=== PATIENT | female | born 1945 | race Caucasian/White ===

== ENCOUNTER → 2017-12-07 09:30 | Outpatient (CLI) | payer MEDICARE, BC, SELFPAY | PROVIDERS: Family Provider Family Medicine; PCP Family Medicine; Visit Provider Internal Medicine Medical Oncology | DX: Z12.31 Encounter for screening mammogram for malignant neoplasm of breast (principal); Z85.3 Personal history of malignant neoplasm of breast | CPT/HCPCS: 77063; 77067 ==

== ENCOUNTER → 2018-07-10 13:37 | Outpatient (CLI) | payer MEDICARE, BC, SELFPAY ==
[2018-07-02 10:46] VITALS: BMI 35.1
--- NOTE | 2018-07-10 13:40 | US_ITS ---
STUDY: ULTRASOUND BREAST - RIGHT REASON FOR EXAM: Female, 72 years old. Palpable lump in the right breast. The patient is status post right lumpectomy. TECHNIQUE: Axial and longitudinal images of the RIGHT breast were performed with a high resolution ultrasound transducer. COMPARISON: Comparison is made with prior mammogram done earlier in the day. FINDINGS: RIGHT Breast: No sonographic solid or cystic mass lesion is seen. At the lumpectomy site, there is a 4 mm x 4 mm x 2 mm focal fluid collection. US/Breast Limited Unilateral IMPRESSION: 4 mm x 4 mm x 2 mm fluid collection at the 2:00 position of the breast at 2 cm from the nipple. No solid or cystic mass lesion is seen. ASSESSMENT CATEGORY: BIRADS Category 2: Benign. A letter regarding these results will be sent to the patient by the facility within 30 days. Electronically Signed: Robbin Rushing, at 8:55 EDT , Service support ,
--- NOTE | 2018-07-10 13:43 | BI_ITS ---
MAMMOGRAPHY - UNILATERAL DIAGNOSTIC: RIGHT BREAST REASON FOR EXAM: Female, 72 years old. Prior right lumpectomy and radiation treatment. Patient presents with a palpable lump in the right breast just above the lumpectomy scar. PERTINENT HISTORY: Personal history of breast cancer. TECHNIQUE: Digital unilateral breast tete (3D mammographic acquisition) in the CC and MLO projections. 2-D mediolateral oblique (MLO) and craniocaudad (CC) views of both breasts were obtained. CAD: Full Field Digital Mammography with Computer Added Detection was performed. COMPARISON: Comparison is made with prior study dated December 07, 2017. FINDINGS: Breast Composition: There are scattered areas of fibroglandular density. There are no dominant masses or suspicious calcifications. A tissue clip marker is seen in the mid anterior medial aspect of the breast. There is evidence of a postoperative changes in keeping with prior lumpectomy. No other significant abnormalities are identified. There has been no significant change since the prior study. BI/DIAG MAMM W/CAD, UNILAT IMPRESSION: Stable unilateral diagnostic mammogram. With the patient's history of a palpable abnormality in the right breast, correlation with ultrasound is recommended. ASSESSMENT CATEGORY: BIRADS Category 0: Incomplete. Need additional imaging evaluation. A letter regarding these results will be sent to the patient by the facility within 30 days. Approximately 10% of breast cancers are not detected by mammography. A normal mammogram should not delay biopsy of a clinically suspicious abnormality. Electronically Signed: Robbin Rushing, at 15:02 EDT , Service support ,
== END ==
PROVIDERS: Family Provider Family Medicine; PCP Family Medicine; Referring Provider Internal Medicine Medical Oncology; Visit Provider Internal Medicine Medical Oncology
DX: N63.10 Unspecified lump in the right breast, unspecified quadrant (principal); Z85.3 Personal history of malignant neoplasm of breast
CPT/HCPCS: 76642; 77061; 77065; G0279

== ENCOUNTER → 2018-12-10 | Outpatient (CLI) | payer MEDICARE, BC, SELFPAY ==
[2018-07-20 08:41] VITALS: BMI 35.6
--- NOTE | 2018-12-10 07:36 | BI_ITS ---
MAMMOGRAPHY - BILATERAL SCREENING REASON FOR EXAM: Female, 73 years old. Routine annual screening examination. PERTINENT HISTORY: Personal history of breast cancer. Prior right lumpectomy with radiation therapy. TECHNIQUE: Digital bilateral breast hung (3D mammographic acquisition) in the CC and MLO projections. 2-D mediolateral oblique (MLO) and craniocaudad (CC) views of both breasts were obtained. CAD: Full Field Digital Mammography with Computer Added Detection was performed. COMPARISON: Comparison is made with prior study dated July 10, 2018 and December 07, 2017. FINDINGS: Breast Composition: The breasts are heterogeneously dense, which may obscure small masses. There are no dominant masses or suspicious calcifications. A surgical clip is seen in the deep mid medial aspect of the right breast. Stable architectural distortion in keeping with her prior lumpectomy. No other significant abnormalities are identified. There has been no significant change since the prior study. BI/SCREEN MAMM (CAD) W/HUNG BILAT IMPRESSION: Stable bilateral screening mammogram. Yearly follow-up mammogram recommended. (A) ASSESSMENT CATEGORY: BIRADS Category 2: Benign. A letter regarding these results will be sent to the patient by the facility within 30 days. Approximately 10% of breast cancers are not detected by mammography. A normal mammogram should not delay biopsy of a clinically suspicious abnormality. [id number] Electronically Signed: Robbin Rushing, at 9:26 EDT , Service support ,
== END | disposition home or self-care (01) ==
LOC: OPBI 07:34
PROVIDERS: Family Provider Family Medicine; PCP Family Medicine; Referring Provider Internal Medicine Medical Oncology; Visit Provider Internal Medicine Medical Oncology
DX: Z12.31 Encounter for screening mammogram for malignant neoplasm of breast (principal); Z85.3 Personal history of malignant neoplasm of breast
CPT/HCPCS: 77063; 77067

== ENCOUNTER → 2019-12-12 10:31 | Outpatient (CLI) | payer MEDICARE, BC, SELFPAY ==
[2019-03-15 07:50] VITALS: BMI 36.1
--- NOTE | 2019-12-12 10:32 | BI_ITS ---
MAMMOGRAPHY - BILATERAL SCREENING REASON FOR EXAM: Female, 74 years old. Routine annual screening examination. PERTINENT HISTORY: Personal history of breast cancer. Prior right lumpectomy with radiation treatment.. TECHNIQUE: Digital bilateral breast hung (3D mammographic acquisition) in the CC and MLO projections. 2-D mediolateral oblique (MLO) and craniocaudad (CC) views of both breasts were obtained. CAD: Full Field Digital Mammography with Computer Added Detection was performed. COMPARISON: Comparison is made with prior study dated 12/10/2018 and 12/07/2017. FINDINGS: Breast Composition: The breasts are heterogeneously dense, which may obscure small masses. There are no dominant masses or suspicious calcifications. Stable postoperative deformity of the right breast. A tissue clip marker is once again seen in the central medial portion of the right breast. No other significant abnormalities are identified. There has been no significant change since the prior study. BI/SCREEN MAMM (CAD) W/HUNG BILAT IMPRESSION: Stable bilateral screening mammogram. Yearly follow-up mammogram recommended. (A) ASSESSMENT CATEGORY: BIRADS Category 2: Benign. A letter regarding these results will be sent to the patient by the facility within 30 days. Approximately 10% of breast cancers are not detected by mammography. A normal mammogram should not delay biopsy of a clinically suspicious abnormality. [id number] Electronically Signed: Robbin Rushing, at 12:23 EDT , Service support ,
== END ==
PROVIDERS: PCP Family Medicine; Referring Provider Internal Medicine Medical Oncology; Visit Provider Internal Medicine Medical Oncology
DX: Z12.31 Encounter for screening mammogram for malignant neoplasm of breast (principal); Z85.3 Personal history of malignant neoplasm of breast
CPT/HCPCS: 77063; 77067

== ENCOUNTER → 2020-02-05 09:02 | Outpatient (CLI) | payer MEDICARE, BC, SELFPAY ==
[2020-02-03 13:50] VITALS: BMI 35.1
--- NOTE | 2020-02-05 09:03 | US_ITS ---
STUDY: ULTRASOUND BREAST - LEFT REASON FOR EXAM: Female, 74 years old. Palpable retroareolar lump TECHNIQUE: Axial and longitudinal images of the LEFT breast were performed with a high resolution ultrasound transducer. # OF IMAGES: 24 COMPARISON: 12/12/2019 FINDINGS: LEFT Breast: There is a cystic lesion #1 in the retroareolar region. The lesion measures 6 x 5 x 2 mm in size. Clock notation: 6 o''clock position. Distance from nipple: 1 cm. Posterior Enhancement: Yes. Posterior Shadowing: None. Margins: Indistinct but smooth. Echogenicity: Anechoic. Compression effect on Shape: No change. There is a cystic lesion # 2 in the retroareolar region. The lesion measures 3 x 3 x 2 mm in size. Clock notation: 6 o''clock position. Distance from nipple: 1 cm. Posterior Enhancement: Yes. Posterior Shadowing: None. Margins: Sharp and smooth. Echogenicity: Anechoic. Compression effect on Shape: No change. There is a cystic lesion # 2 in the retroareolar region. The lesion measures 5 x 5 x 3 mm in size. Clock notation: 9 o''clock position. Distance from nipple: 1 cm. Posterior Enhancement: Yes. Posterior Shadowing: None. Margins: Sharp and smooth. Echogenicity: Anechoic. Compression effect on Shape: No change. US/Breast Limited Unilateral IMPRESSION: 3 probably benign retroareolar cystic lesions in the area of palpable abnormality in the left breast. A follow-up in 6 months would be recommended to ensure stability. ASSESSMENT CATEGORY: BIRADS Category 3: Probably Benign - Short-Interval Follow-up Suggested. A letter regarding these results will be sent to the patient by the facility within 30 days. Electronically Signed: Mayra Casas, at 15:41 EDT Tel , Service support ,
== END ==
PROVIDERS: PCP Family Medicine; Referring Provider Internal Medicine Medical Oncology; Visit Provider Internal Medicine Medical Oncology
DX: Z12.31 Encounter for screening mammogram for malignant neoplasm of breast (principal); N63.42 Unspecified lump in left breast, subareolar
CPT/HCPCS: 76642

== ENCOUNTER → 2020-07-30 10:32 | Outpatient (CLI) | payer MEDICARE, BC, SELFPAY ==
[2020-04-02 09:26] VITALS: BMI 34.9
--- NOTE | 2020-07-30 10:35 | US_ITS ---
STUDY: ULTRASOUND BREAST - LEFT REASON FOR EXAM: Female, 74 years old. Six-month follow-up of left breast cyst. TECHNIQUE: Axial and longitudinal images of the LEFT breast were performed with a high resolution ultrasound transducer. # OF IMAGES: 21 COMPARISON: Comparison is made with a prior examination dated 02/05/2020. FINDINGS: LEFT Breast: Stable 6 mm x 4 mm x 3 mm cyst at the 6 o''clock retroareolar region of the breast. Adjacent to this, there is a 3 mm x 4 mm x 3 mm cyst. There is a 5 mm x 4 mm x 3 mm cyst at the 9 o''clock retroareolar position of the breast. US/Breast Limited Unilateral IMPRESSION: Stable examination. Routine annual mammographic follow-up is recommended. ASSESSMENT CATEGORY: BIRADS Category 2: Benign. A letter regarding these results will be sent to the patient by the facility within 30 days. Electronically Signed: Robbin Rushing MD at 14:06 EDT , Service support ,
== END ==
PROVIDERS: PCP Family Medicine; Referring Provider Internal Medicine Medical Oncology; Visit Provider Internal Medicine Medical Oncology
DX: N60.02 Solitary cyst of left breast (principal); Z85.3 Personal history of malignant neoplasm of breast
CPT/HCPCS: 76642

== ENCOUNTER → 2020-12-14 08:19 | Outpatient (CLI) | payer MEDICARE, BC, SELFPAY ==
[2020-08-06 10:42] VITALS: BMI 35.3
--- NOTE | 2020-12-14 08:22 | BI_ITS ---
MAMMOGRAPHY - BILATERAL SCREENING REASON FOR EXAM: Female, 75 years old. Routine annual screening examination. PERTINENT HISTORY: Personal history of breast cancer. Prior right lumpectomy with radiation treatment. TECHNIQUE: Digital bilateral breast hung (3D mammographic acquisition) in the CC and MLO projections. 2-D mediolateral oblique (MLO) and craniocaudad (CC) views of both breasts were obtained. CAD: Full Field Digital Mammography with Computer Added Detection was performed. COMPARISON: Comparison is made with prior study 12/12/2019 and 12/10/2018. FINDINGS: Breast Composition: The breasts are heterogeneously dense, which may obscure small masses. There are no dominant masses or suspicious calcifications. Once again, the patient is status post right lumpectomy with resultant breast deformity and postoperative changes. A tissue clip marker is seen in the deep central anterior medial aspect of the right breast. No other significant abnormalities are identified. There has been no significant change since the prior study. BI/SCRN MAMM (CAD)W/HUNG BILAT IMPRESSION: Stable bilateral screening mammogram. Yearly follow-up mammogram recommended. (A) ASSESSMENT CATEGORY: BIRADS Category 2: Benign. A letter regarding these results will be sent to the patient by the facility within 30 days. Approximately 10% of breast cancers are not detected by mammography. A normal mammogram should not delay biopsy of a clinically suspicious abnormality. [id number] Electronically Signed: Robbin Rushing MD at 10:23 EDT , Service support ,
== END ==
PROVIDERS: PCP Family Medicine; Referring Provider Internal Medicine Medical Oncology; Visit Provider Internal Medicine Medical Oncology
DX: Z12.31 Encounter for screening mammogram for malignant neoplasm of breast (principal); Z85.3 Personal history of malignant neoplasm of breast
CPT/HCPCS: 77063; 77067

== ENCOUNTER 2021-07-15 08:53 | Outpatient (CLI) | payer MEDICARE, BC, SELFPAY ==
--- NOTE | 2021-07-15 08:56 | US_ITS ---
STUDY: ULTRASOUND BREAST - LEFT REASON FOR EXAM: Female, 75 years old. Palpable mass TECHNIQUE: Axial and longitudinal images of the LEFT breast were performed with a high resolution ultrasound transducer. # OF IMAGES: 14 COMPARISON: Diagnostic mammogram earlier today FINDINGS: LEFT Breast: Heterogeneous background echotexture. At 1 o''clock, 4 cm from the nipple, within some dense breast parenchyma, ultrasound confirms a 3 mm round circumscribed anechoic mass with posterior enhancement consistent with a cyst consistent with fibrocystic change.: US/Breast Limited Unilateral IMPRESSION: Fibrocystic change with a 3 mm cyst corresponding to the patient''s palpable abnormality. ASSESSMENT CATEGORY: BIRADS Category 2: Benign. A letter regarding these results will be sent to the patient by the facility within 30 days. Electronically Signed: Rahul Cordero MD at 10:49 EDT ,
--- NOTE | 2021-07-15 08:56 | BI_ITS ---
MAMMOGRAPHY - UNILATERAL DIAGNOSTIC: LEFT BREAST REASON FOR EXAM: Female, 75 years old. PALPABLE LUMP LEFT BREAST PERTINENT HISTORY: Non-contributory. TECHNIQUE: Digital examination. Mediolateral oblique (MLO) and craniocaudad (CC) views of the breast were obtained. CAD: CAD was performed on this study. COMPARISON: 12/14/2020 FINDINGS: Breast Composition: The breasts are heterogeneously dense, which may obscure small masses. There are no dominant masses or suspicious calcifications. No other significant abnormalities are identified. BI/DIAG MAMM W/CAD, UNILAT IMPRESSION: Stable unilateral diagnostic mammogram. Ultrasound of the palpable abnormality in the upper outer quadrant of the left breast will be obtained. ASSESSMENT CATEGORY: BIRADS Category 0: Incomplete. Need additional imaging evaluation. A letter regarding these results will be sent to the patient by the facility within 30 days. FOLLOW-UP RECOMMENDATION: Ultrasound recommended. (I) Approximately 10% of breast cancers are not detected by mammography. A normal mammogram should not delay biopsy of a clinically suspicious abnormality. Electronically Signed: Rahul Cordero MD at 10:01 EDT ,
== END 2021-07-15 23:59 | disposition home or self-care (01) ==
PROVIDERS: PCP Family Medicine; Visit Provider Internal Medicine Medical Oncology
DX: N63.21 Unspecified lump in the left breast, upper outer quadrant (principal)
CPT/HCPCS: 76642; 77061; 77065; G0279

== ENCOUNTER → 2022-01-27 | Outpatient (CLI) | payer MEDICARE, BC, SELFPAY ==
--- NOTE | 2022-01-27 07:41 | ECHODONC_ITS ---
Version 2 Reason For Study: DYSPNEA/SOB Procedure This was a 2D Doppler, Color Flow transthoracic echocardiogram. Myocardial strain analysis was performed in this exam to aid in the assessment of cardiac function. Exam performed in department. Left Ventricle Normal LV size. Left ventricular systolic function is normal. The estimated ejection fraction is 55 %. Stage 1 diastolic dysfunction. No regional wall motion abnormalities noted. Right Ventricle Normal RV size. Normal systolic function. Atria Normal left atrium. Normal right atrium. Mitral Valve Normal mitral valve. Tricuspid Valve Normal tricuspid valve. Mild tricuspid valve insufficiency. Pulmonary artery systolic pressure is 24 mmHg. Aortic Valve Trisinus/trileaflet aortic valve. Mild focal aortic valve calcification. Pulmonic Valve Normal pulmonic valve. Great Vessels Normal aortic root. The pulmonary artery is normal size. Normal inferior vena cava. Pericardium/Pleural No pericardial effusion. MMode/2D Measurements & Calculations LVIDd: 4.8 cm IVSd: 0.93 cm Ao root diam: 3.3 cm LVIDs: 3.3 cm LVPWd: 0.98 cm RVDd: 2.9 cm FS: 32.3 % LAV(MOD-bp): 43.9 ml LA A4 area: 15.0 cm2 LA dimension(2D): 3.7 cm LAV(MOD-bp) Indexed: 20.1 ml/m2 LAV(MOD-sp2): 47.2 ml LAV(MOD-sp4): 39.1 ml RA A4 area: 13.1 cm2 Doppler Measurements & Calculations MV E max ivan: 65.3 cm/sec Lat Peak E' Ivan: 6.0 cm/sec Med Peak E' Ivan: 6.7 cm/sec MV A max ivan: 76.1 cm/sec E/E' lat: 11.0 E/E' med: 9.7 MV E/A: 0.86 Ao V2 max: 111.1 cm/sec LV V1 max: 105.0 cm/sec PA V2 max: 90.7 cm/sec Ao max P.9 mmHg LV V1 max P.4 mmHg TR max ivan: 225.7 cm/sec TR max P.4 mmHg ECHO/ONC Echo Complete Interpretation Summary Normal LV size. Left ventricular systolic function is normal. The estimated ejection fraction is 55 %. Stage 1 diastolic dysfunction. Mild focal aortic valve calcification. The global longitudinal strain is normal. The global longitudinal strain = -16. 8 % (normal). Ordering Physician: Suki Flores Referring Physician: Sisi York Performed By: Susie Deleon, HUEY, RVT
== END | disposition home or self-care (01) ==
PROVIDERS: PCP Family Medicine; Referring Provider Physician Assistant Medical; Visit Provider Physician Assistant Medical
DX: I47.1 Supraventricular tachycardia (principal)
CPT/HCPCS: 93306; 93356

== ENCOUNTER → 2022-07-14 | Outpatient (CLI) | payer MEDICARE, BC, SELFPAY ==
--- NOTE | 2022-07-14 15:26 | PFTCOMP ---
COMPLETE PULMONARY FUNCTION TEST INTERPRETATION Brief HPI: Patient is a 76-year-old female, currently under the care of myself, who presents to [facility] for complete pulmonary function tests secondary to diagnosis of dyspnea. Respiratory therapist reports good effort and reproducible results. Interpretation: Forced expiration spirometry shows a moderate large airways obstructive ventilatory defect with an FEV1 of 68% predicted. There is no significant bronchodilator response by strict ATS criteria. Spirograms are of good quality and plateau slowly, indicating slowly emptying areas of the lungs. The respiratory flow volume loop shows decreased expiratory flow rates at all lung volumes consistent with airway obstruction. Lung volumes by body plethysmography show a decreased total lung capacity at 3.4 L, 63% predicted. All other lung volumes are reduced symmetrically. Diffusion capacity by carbon monoxide is decreased at 60% predicted. The airway resistance is elevated. No previous pulmonary function tests were available for review. Impression: Irreversible moderate mixed ventilatory defect with a symmetric duction and diffusing capacity
== END | disposition home or self-care (01) ==
LOC: PSN 09:30
PROVIDERS: PCP Family Medicine; Referring Provider Internal Medicine Critical Care Medicine; Visit Provider Internal Medicine Critical Care Medicine
DX: R06.09 Other forms of dyspnea (principal)
CPT/HCPCS: 94060; 94726; 94729

== ENCOUNTER → 2022-07-21 | Outpatient (CLI) | payer MEDICARE, BC, SELFPAY ==
[2022-07-21 11:15] VITALS: PULSE 101; PULSE 103; PULSE 105; PULSE 112; PULSE 127; PULSE 79; PULSE 94; O2SAT 92; O2SAT 93; O2SAT 94; O2SAT 95; O2SAT 98
--- NOTE | 2022-07-22 09:30 | WT_ITS ---
PSN 6 Minute Walk Test 6 Minute Walk Test 6 Minute Walk Test: 6 Minute Walk Test PSN:6-Minute Walk Test Start: 07/21/22 11:14 Freq: Status: Active Protocol: [id number].6MINW Document 07/21/22 11:15 [facility] (Rec: 07/21/22 11:18 [facility] [id number]) 6 Minute Walk Test Date Performed 07/21/22 Time Performed 11:15 Height 5 ft 7 in Weight: 229 lb Weight in Pounds 229.[address]: George Fraga Assistive device used: None Pre-test Oxygen Delivery Method Room Air Pulse Ox (%) 98 Pulse Rate (60-100 beats/min) 79 Dyspnea Liam Scale (0-10) 0 Exertion Liam Scale (6-20) 6 1st minute Oxygen Delivery Method Room Air Pulse Ox (%) 94 Pulse Rate (60-100 beats/min) 101 H 2nd minute Oxygen Delivery Method Room Air Pulse Ox (%) 93 Pulse Rate (60-100 beats/min) 103 H 3rd minute Oxygen Delivery Method Room Air Pulse Ox (%) 94 Pulse Rate (60-100 beats/min) 105 H 4th minute Oxygen Delivery Method Room Air Pulse Ox (%) 93 Pulse Rate (60-100 beats/min) 112 H 5th minute Oxygen Delivery Method Room Air Pulse Ox (%) 94 Pulse Rate (60-100 beats/min) 112 H 6th minute Oxygen Delivery Method Room Air Pulse Ox (%) 92 Pulse Rate (60-100 beats/min) 127 H Dyspnea Liam Scale (0-10) 3 Exertion Liam Scale (6-20) 11 Post-test Oxygen Delivery Method Room Air Pulse Ox (%) 95 Pulse Rate (60-100 beats/min) 94 Full Laps Walked 18 Partial Lap, Number of Tiles Walked 27 Total Distance Walked (ft) 1089 Interpretation Interpretation: The patient ambulated 1089 feet over the course of 6 minutes beginning on room air without assistive devices. Pretesting oxygen saturation was noted to be 98% on room air. With ambulation, the faith oxygen saturation was 92%. This represents a significant exertional oxygen desaturation, consistent with a pulmonary limitation to exercise tolerance. Recommendations Recommendations: There is no indication for the use of supplemental oxygen at this time. However, close interval follow-up is recommended, given the degree of oxygen desaturation noted during this study.
== END | disposition home or self-care (01) ==
LOC: PSN 10:49
PROVIDERS: PCP Family Medicine; Referring Provider Internal Medicine Critical Care Medicine; Visit Provider Internal Medicine Critical Care Medicine
DX: R06.09 Other forms of dyspnea (principal)
CPT/HCPCS: 94618

== ENCOUNTER → 2024-07-24 | Outpatient (CLI) | payer MEDICARE, BC, SELFPAY | END | disposition home or self-care (01) | LOC: PSN 09:03 | PROVIDERS: PCP Family Medicine; Referring Provider Nurse Practitioner Family; Visit Provider Nurse Practitioner Family | DX: R05.9 Cough, unspecified (principal) | CPT/HCPCS: 94060; 94726; 94729 ==

== ENCOUNTER → 2024-10-15 | Outpatient (CLI) | payer MEDICARE, BC, SELFPAY ==
--- NOTE | 2024-10-15 06:43 | ECHOD_ITS ---
Reason For Study Reason For Study: Worsening SOB Procedure This was a 2D Doppler, Color Flow transthoracic echocardiogram. Exam performed in department. Left Ventricle Normal LV size. Mild concentric left ventricular hypertrophy. Left ventricular systolic function is normal. Stage 1 diastolic dysfunction. No regional wall motion abnormalities noted. Right Ventricle Normal RV size. Normal systolic function. Atria Normal left atrium. Normal right atrium. Mitral Valve Normal mitral valve. Tricuspid Valve Normal tricuspid valve. Mild tricuspid valve insufficiency. Pulmonary artery systolic pressure is 38 mmHg. Aortic Valve Trisinus/trileaflet aortic valve. Pulmonic Valve Normal pulmonic valve. Great Vessels Normal aortic root. The pulmonary artery is normal size. Inferior vena cava collapse with respiration. Pericardium/Pleural No pericardial effusion. MMode/2D Measurements & Calculations LVIDd: 4.5 cm IVSd: 1.3 cm Ao root diam: 3.6 cm LVIDs: 3.2 cm LVPWd: 1.2 cm RVDd: 4.0 cm FS: 27.4 % LAV(MOD-bp): 51.5 ml LVAd ap4: 30.2 cm2 SV(MOD-sp4): 53.1 ml LAV(MOD-bp) Indexed: 23.6 ml/m2 LVLd ap4: 7.1 cm SI(MOD-sp4): 24.3 ml/m2 LAV(MOD-sp2): 51.7 ml EDV(MOD-sp4): 102.4 ml LAV(MOD-sp4): 50.0 ml EDV(sp4-el): 108.0 ml LVAs ap4: 19.5 cm2 LVLs ap4: 6.4 cm ESV(MOD-sp4): 49.3 ml ESV(sp4-el): 50.4 ml EF(MOD-sp4): 51.9 % EF(sp4-el): 53.3 % SV(sp4-el): 57.6 ml LA A4 area: 18.1 cm2 LA dimension(2D): 3.8 cm RA A4 area: 18.0 cm2 TAPSE: 2.3 cm Time Measurements MV dec time: 0.16 sec Doppler Measurements & Calculations MV E max ivan: 79.6 cm/sec Lat Peak E' Ivan: 6.1 cm/sec Med Peak E' Ivan: 8.3 cm/sec MV A max ivan: 90.2 cm/sec E/E' lat: 13.0 E/E' med: 9.6 MV E/A: 0.88 MV V2 max: 107.7 cm/sec MV P1/2t max ivan: 103.7 cm/sec Ao V2 max: 148.9 cm/sec MV max P.7 mmHg MV P1/2t: 65.7 msec Ao max P.9 mmHg MV V2 mean: 62.9 cm/sec Ao V2 mean: 102.8 cm/sec MV mean P.8 mmHg MV dec slope: 462.5 cm/sec2 Ao mean P.7 mmHg MV V2 VTI: 30.1 cm MVA(P1/2t): 3.4 cm2 Ao V2 VTI: 36.8 cm AV (velocity ratio): 0.75 LV V1 max: 108.8 cm/sec PA V2 max: 101.8 cm/sec TR max ivan: 292.1 cm/sec LV V1 max P.7 mmHg TR max P.1 mmHg LV V1 mean P.6 mmHg LV V1 mean: 76.6 cm/sec LV V1 VTI: 27.5 cm ECHO/Echo Complete Interpretation Summary Left ventricular systolic function is normal. Normal LV size. Stage 1 diastolic dysfunction. Pulmonary artery systolic pressure is 38 mmHg. Structurally normal valves. Ordering Physician: Gino Valdez Referring Physician: Gino Valdez Performed By: Thomas Mazariegos RCS
--- OUTSIDE RECORDS SUMMARY | 2024-10-15 06:45 | XMS RPT_ITS | CCD ---
Author Organization [facility] Care Team Providers Care Leg Breaker Name Role Phone Dr. Kwame Colvin Primary Care Provider Dr. Kwame Colvin Referring Provider Dr. Paddy Tijerina Attending Provider Dr. Kwame Colvin Referring Provider Mark SOOD, PA Suki Hawkins Attending Provider Hedrick PA, PA-C Sisi Primary Care Provider Dr. Eloy Villatoro Attending Provider Hedrick PA, PA-C Sisi Primary Care Provider Jaylen PA, PA-C Sisi Referring Provider [phone] Dr. George Fraga Attending Provider Dr. George Fraga Referring Provider Dr. George Fraga Other Provider DR DAVID MARCANO MD Attending Unavailable JAYLEN PA-C, SISI Primary Care Unavailable Kwame Colvin MD Primary Care Provider Zahra Briones MD Unavailable KWAME COLVIN Primary Care Unavailable PROVIDER, UNKNOWN Referring Unavailable KWAME COLVIN Primary Care Unavailable PROVIDER, UNKNOWN Referring Unavailable Kwame Colvin MD Primary Care Provider [phone] KWAME COLVIN Primary Care Unavailable Marin Smith Attending Unavailable Hedrick PA-C, Sisi Primary Care Provider Jaylen PA-C, Sisi Referring Provider Mary CHARLTON-La Koenig Attending Provider Mary CHARLTON-CLa Referring Provider HILLS, SISI Consulting Unavailable MARCANO, DAVID Attending Unavailable MARCANO, DAVID Admitting Unavailable MARCANO, DAVID Primary Care Unavailable PROVIDER, UNKNOWN Consulting Unavailable HILLS, SISI Consulting Unavailable MARCANO, DAVID Primary Care Unavailable MARCANO, DAVID Attending Unavailable MARCANO, DAVID Admitting Unavailable PROVIDER, UNKNOWN Consulting Unavailable HILLS, SISI Consulting Unavailable MARCANO, DAVID Primary Care Unavailable MARCANO, DAVID Attending Unavailable MARCANO, DAVID Admitting Unavailable PROVIDER, UNKNOWN Consulting Unavailable HILLS, SISI Consulting Unavailable LAWRENCE, SISI Attending Unavailable LAWRENCE, SISI Admitting Unavailable LAWRENCE, SISI Primary Care Unavailable PROVIDER, UNKNOWN Consulting Unavailable LAWRENCE, SISI Attending Unavailable LAWRENCE, SISI Admitting Unavailable LAWRENCE, SISI Primary Care Unavailable LAWRENCE, SISI Consulting Unavailable PROVIDER, UNKNOWN Consulting Unavailable LAWRENCE, SISI Attending Unavailable LAWRENCE, SISI Admitting Unavailable LAWRENCE, SISI Primary Care Unavailable LAWRENCE, SISI Consulting Unavailable PROVIDER, UNKNOWN Consulting Unavailable LAWRENCE, SISI Consulting Unavailable LAWRENCE, SISI Attending Unavailable LAWRENCE, SISI Admitting Unavailable LAWRENCE, SISI Primary Care Unavailable PROVIDER, UNKNOWN Consulting Unavailable LAWRENCE, SISI Consulting Unavailable MARCANO, DAVID Primary Care Unavailable MARCANO, DAVID Attending Unavailable MARCANO, DAVID Admitting Unavailable PROVIDER, UNKNOWN Consulting Unavailable LAWRENCE, SISI Consulting Unavailable MARCANO, DAVID Primary Care Unavailable MARCANO, DAVID Attending Unavailable MARCANO, DAVID Admitting Unavailable PROVIDER, UNKNOWN Consulting Unavailable Hedrick PA, Sisi Primary Care Unavailable Hedrick PA, Sisi Referring Unavailable La Hernandez Attending Unavailable Hedrick PA, Sisi Primary Care Unavailable La Hernandez Attending Unavailable La Hernandez Referring Unavailable [facility] CINDER CREW WORKER, Gino Lewis Attending Unavailable [facility] CINDER CREW WORKER, Gino Lewis Referring Unavailable Hedrick PA, Sisi Primary Care Unavailable Hedrick PA, Sisi Primary Care Unavailable Hedrick PA, Sisi Referring Unavailable La Hernandez Attending Unavailable Allergies Allergy Classification Reported Allergen(s) Allergy Type Date of Onset Reaction(s) Facility (4 sources) hydroCHLOROthiazide Drug Allergy 07-21-19 Makes hot flashes worse, also sulfa in it. [facility] (5 sources) Latex; Translations: [LATEX] Propensity to adverse reactions 07-21-19 Rash [facility] (11 sources) Penicillins; Translations: [PENICILLINS] Propensity to adverse reactions 12-10-19 14 [facility] (11 sources) Sulfonamides (Antibiotic); Translations: [SULFA (SULFONAMIDE ANTIBIOTICS)] Propensity to adverse reactions 12-10-19 [facility] (1 source) Penicillins Drug allergy (disorder) [facility] (1 source) Sulfonamides (Antibiotic) Drug allergy (disorder) [facility] (1 source) hydroCHLOROthiazide Drug Allergy 07-11-19 [facility] (1 source) Latex Drug allergy (disorder) 07-11-19 [facility] Medications Current Medications Medication Drug Class(es) Dates Sig (Normalized) Sig (Original) Calcium Carbonate (4 sources) take 1 tablet by maricruz th twice daily CALCIUM CARBONATE (CALCIUM 500 ORAL) Take 1 tablet by mouth twice daily. Active take 1 tablet by mouth twice sparkle ly CALCIUM CARBONATE (CALCIUM 500 ORAL) Take 1 tablet by mouth twice daily. 0 Active Comment on above: Take 1 tablet by maricruz th twice daily. FLUoxetine 40 mg oral capsule (19 sources) Serotonin Reuptake Inhibitor Start: 01-18-2022 take 1 capsule by mouth once daily Fluoxetine 40 mg capsule Active 40 mg PO DAILY January 18, 2022 12:00am Start: 07-06-2021 End: 01-18-2022 take 2 capsules by mouth once daily Fluoxetine 20 mg capsule Discontinued 40 mg PO DAILY July 06, 2021 11:51am January 18, 2022 9:34am Start: 07-06-2021 End: 01-18-2022 take 40 mg by mouth once daily Fluoxetine Discontinued 40 MG PO DAILY July 06, 2021 11:51am January 18, 2022 9:34am Start: 07-31-2017 End: 07-06-2021 Fluoxetine 20 MG capsule Discontinued 30 mg PO DAILY July 31, 2017 12:00am July 06, 2021 11:51am Start: 07-31-2017 End: 07-06-2021 take 30 mg by mouth once daily Fluoxetine Discontinued 30 MG PO DAILY July 31, 2017 12:00am July 06, 2021 11:51am take 1 capsule by mo uth once daily FLUoxetine (PROZAC) 10 mg capsule Take 10 mg by mouth once daily. Active Comment on above: Take 10 mg by mouth once daily. Take 40 mg by mouth once daily. levothyroxine sodium 0.05 mg oral capsule (13 sources) l-Thyroxine Start: 05-22-2023 Levothyroxine 50 mcg capsule Active 75 ug PO DAILY May 22, 2023 10:59am Start: 03-15-2019 End: 05-22-2023 take 1 capsule by mouth once daily Levothyroxine 50 mcg capsule Discontinued 50 ug PO DAILY March 15, 2019 1:00am May 22, 2023 11:00am Start: 06-24-2015 End: 03-15-2019 take 0.05 mg by mouth once daily Levothyroxine 25 MCG tablet Discontinued 0.05 mg PO DAILY June 24, 2015 1:00am March 15, 2019 10:13am Start: 06-24-2015 End: 03-15-2019 take 0.05 mg by mouth once daily Levothyroxine Discont inued 0.05 MG PO DAILY June 24, 2015 1:00am March 15, 2019 10:13am take 1 tablet by maricruz th once daily before breakfast levothyroxine (SYNTHROID) 50 mcg tablet Take 50 mcg by mouth daily before breakfast. Active Comment on above: Take 50 mcg by mouth daily before breakfast. losartan potassium 50 mg oral tablet (6 sources) Angiotensin 2 Receptor Freddie Start: 02-10-2023 End: 09-27-2023 take 1 tablet by mouth once daily Losartan 50 mg tablet Active 50 mg PO DAILY September 27, 2023 9:50am Comment on above: Take 50 mg by mouth once daily. melatonin 10 mg oral capsule (11 sources) Start: 02-03-2020 End: 01-18-2022 take 1 capsule by mouth at bedtime as needed Melatonin 10 mg capsule Active 10 mg PO AT BEDTIME as needed January 18, 2022 9:34am take 1 tablet by maricruz th every twenty-four hours as needed melatonin 10 mg tab Take 1 tablet by mouth at bedtime as needed. Active Comment on above: Take 1 tablet by maricruz th at bedtime as needed. Tiotropium-Olodaterol (4 sources) Anticholinergic, beta2-Adrenergic Agonist Start: 07-10-2024 Tiotropium-Olodaterol (Stiolto Respimat) 2.5-2.5 mcg/actuation mist Active 2 NMA INHALATION DAILY July 10, 2024 11:13am Start: 05-22-2023 End: 07-10-2024 Tiotropium-Olodaterol (Stiol to Respimat) 2.5-2.5 mcg/actuation mist Discontinued 2 NMA INHALATION DAILY 3 May 22, 2023 11:51am July 10, 2024 11:13am Start: 12-29-2022 End: 05-22-2023 Tiotropium-Olodaterol (Stiol to Respimat) 2.5-2.5 mcg/actuation mist Discontinued 2 NMA INHALATION DAILY 4 December 29, 2022 8:43am May 22, 2023 11:55am Start: 08-16-2022 End: 12-29-2022 Tiotropium-Olodaterol (Stiol to Respimat) 2.5-2.5 mcg/actuation mist Discontinued 2 NMA INHALATION DAILY August 16, 2022 12:00am December 29, 2022 8:44am omeprazole 20 mg delayed release oral capsule (4 sources) Proton Pump Inhibitor take 1 capsule by mouth once daily omeprazole (PRILOSEC) 20 mg capsule Take 20 mg by mouth once daily. Active Comment on above: Take 20 mg by mouth once daily. pantoprazole 40 mg delayed release oral tablet (8 sources) Proton Pump Inhibitor Start: take 1 tablet by mouth once daily Pantoprazole 40 MG tablet Active 40 mg PO DAILY January 30, 2018 12:00am Comment on above: Take 40 mg by mouth once daily. 10 actuat tiotropium 0.0025 mg/actuat inhalation spray (4 sources) Anticholinergic take 2 puff(s) by inhalation once daily tiotropium bromide (SPIRIVA RESPIMAT) 2.5 mcg/actuation inhaler Inhale 2 Puffs as instructed once daily. Active Comment on above: Inhale 2 Puffs as in structed once daily. Completed/Discontinued Medications Medication Drug Class(es) Dates Sig (Normalized) Sig (Original) amLODIPine 2.5 mg oral tablet (3 sources) Dihydropyridine Calcium Channel Freddie Start: 01-28-2022 End: 04-14-2022 take 1 tablet by mouth once daily Amlodipine 2.5 mg tablet Discontinued 2.5 mg PO DAILY January 28, 2022 12:00am April 14, 2022 10:03am aspirin 325 mg oral tablet (9 sources) Platelet Aggregation Inhibitor, Nonsteroidal Anti-inflammatory Drug Start: 02-10-2023 End: 09-27-2023 Aspirin 325 mg tablet Discontinued 81 mg PO DAILY February 10, 2023 8:28am September 27, 2023 9:47am Start: 04-02-2020 End: 02-10-2023 take 1 tablet by mouth once daily Aspirin 325 mg tablet Discontinued 325 mg PO DAILY April 02, 2020 1:00am February 10, 2023 8:28am Start: 07-20-2018 End: 03-15-2019 take 1 tablet by mouth once daily Aspirin 325 mg tablet Discontinued 325 mg PO DAILY July 20, 2018 12:00am March 15, 2019 10:13am Black Cohosh Extract (4 sources) Start: 02-03-2020 End: 04-02-2020 take 1 tablet by mouth once daily Black Cohosh Discontinued 1 TABLET PO DAILY February 03, 2020 1:47pm April 02, 2020 10:27am Start: 02-03-2020 End: 04-02-2020 Black Cohosh Discontinued 1 {tbl} PO DAILY February 03, 2020 12:00am April 02, 2020 10:27am Start: 02-03-2020 End: 04-02-2020 take 1 tablet by mouth once daily Black Cohosh Discontinued 1 TABLET PO DAILY February 03, 2020 12:00am April 02, 2020 10:27am ciprofloxacin 500 mg oral tablet (12 sources) Quinolone Antimicrobial Start: 02-10-2020 End: 04-02-2020 take 1 tablet by mouth twice daily Ciprofloxacin Hcl 500 MG tablet Discontinued 500 mg PO TWICE A DAY 6 February 10, 2020 10:41am February 10, 2020 10:42am diphenhydrAMINE hydrochloride 25 mg oral capsule (8 sources) Histamine-1 Receptor Antagonist Start: 06-24-2015 End: 03-15-2019 take 1 capsule by mouth at bedtime as needed Diphenhydramine Hcl 25 MG capsule Discontinued 25 mg PO AT BEDTIME NEEDED as needed for Allergies June 24, 2015 1:00am March 15, 2019 10:13am take 1 tablet by mouth once claudia y diphenhydrAMINE (BENADRYL ALLERGY) 25 mg tablet Take 25 mg by mouth once daily. Active Comment on above: Take 25 mg by mouth once daily. hydroCHLOROthiazide 25 mg oral tablet (4 sources) Thiazide Diuretic Start: 2019 End: 2019 take 1 tablet by mouth once daily Hydrochlorothiazide 25 mg tablet Discontinued 25 mg PO DAILY April 02, 2020 1:00am April 14, 2020 2:30pm lisinopril 40 mg oral tablet (20 sources) Angiotensin Converting Enzyme Inhibitor Start: 2019 End: 2022 take 1 tablet by mouth once daily Lisinopril 40 mg tablet Discontinued 40 mg PO DAILY February 14, 2022 12:09pm February 10, 2023 8:45am Start: 03-15-2019 End: 04-14-2020 take 1 tablet by mouth once daily Lisinopril 20 mg tablet Discontinued 20 mg PO DAILY May 14, 2019 2:21pm April 14, 2020 2:31pm nitrofurantoin, macrocrystals 25 mg / nitrofurantoin, monohydrate 75 mg oral capsule (1 source) Nitrofuran Antibacterial Start: 11-10-2022 End: 11-17-2022 take 1 capsule by mouth every twelve hours at mealtime Nitrofurantoin Monohyd/M-Cryst (Macrobid) 100 mg capsule Discontinued 100 mg PO Q12H 14 7 November 10, 2022 12:00am November 16, 2022 12:00am November 17, 2022 12:04am must administer with a meal/food SUMAtriptan 25 mg oral tablet (11 sources) Serotonin-1b and Serotonin-1d Receptor Agonist Start: 01-18-2022 End: 04-14-2022 Sumatriptan Succinate 25 mg tablet Discontinued 50 mg PO .X1 PRN January 18, 2022 9:34am April 14, 2022 10:03am Start: 01-18-2022 End: 04-14-2022 Sumatriptan Succinate Discon tinued 50 MG PO .X1 PRN January 18, 2022 9:34am April 14, 2022 10:03am Start: 06-24-2015 End: 01-18-2022 Sumatriptan Succinate 25 MG tablet Discontinued 25 mg PO .X1 PRN June 24, 2015 1:00am January 18, 2022 9:35am Start: 06-09-2015 SUMAtriptan (I MITREX) 50 mg tablet Take 50 mg by mouth as needed. 06/09/2015 Active Comment on above: Take 50 mg by mouth as needed. Problems Active Problems Problem Classification Problem Date Documented Date Episodic/Chronic Cancer of breast (12 sources) Malignant neoplasm of upper-inner quadrant of female breast; Translations: [Malignant neoplasm of upper-inner quadrant of right female breast] Onset: 06-22-2015 06-22-2015 Chronic Cancer of breast (6 sources) History of malignant neoplasm of breast; Translations: [Personal history of malignant neoplasm of breast] Episodic Comment on above: No evidence of disea se clinically. Cardiac dysrhythmias (5 sources) Paroxysmal supraventricular tachycardia; Translations: [Supraventricular tachycardia] Chronic Disorders of lipid metabolism (7 sources) Hyperlipidemia; Translations: [Hyperlipidemia, unspecified] Onset: 03-07-2024 03-14-2019 Chronic Esophageal disorders (1 source) Gastro-esophageal reflux disease without esophagitis; Translations: [Gastro-esophageal reflux disease without esophagitis] Onset: 11-10-2023 Chronic Essential hypertension (4 sources) Essential hypertension; Translations: [Essential (primary) hypertension] Chronic Gastroduodenal ulcer (except hemorrhage) (4 sources) Gastric ulcer; Translations: [Gastric ulcer, unspecified as acute or chronic, without hemorrhage or perforation] 01-04-2021 Chronic Malaise and fatigue (1 source) Fatigue; Translations: [Other fatigue] 02-10-2023 Episodic Nonmalignant breast conditions (13 sources) Cyst of breast; Translations: [Solitary cyst of left breast] Onset: 05-18-2023 Episodic Comment on above: Clinically stable. US on 07/15/2021 show s cystic lesion. Nonspecific chest pain (2 sources) Chest pain; Translations: [Chest pain, unspecified] Onset: 10-07-2024 09-27-2023 Episodic Other liver diseases (1 source) Fatty (change of) liver, not elsewhere classified; Translations: [Fatty (change of) liver, not elsewhere classified] Onset: 11-22-2023 Chronic Other lower respiratory disease (3 sources) Dyspnea on exertion; Translations: [Other forms of dyspnea] 01-18-2022 Episodic Other lower respiratory disease (2 sources) Other forms of dyspnea; Translations: [Other respiratory abnormalities] Onset: 10-07-2024 Episodic Other lower respiratory disease (1 source) Shortness of breath; Translations: [Shortness of breath] 04-14-2022 Episodic Other lower respiratory disease (2 sources) Cough; Translations: [Cough] 07-10-2024 Episodic Other lower respiratory disease (1 source) Dyspnea; Translations: [Shortness of breath] 07-10-2024 Episodic Other lower respiratory disease (1 source) Chronic cough; Translations: [Chronic cough] Onset: 09-03-2024 Episodic Other nutritional; endocrine; and metabolic disorders (4 sources) Obesity; Translations: [Obesity, unspecified] 12-06-2021 Chronic Other nutritional; endocrine; and metabolic disorders (1 source) Obesity, unspecified; Translations: [Obesity, unspecified] 04-14-2022 Chronic Residual codes; unclassified (4 sources) Flushing; Translations: [Flushing] 12-06-2021 Episodic Thyroid disorders (1 source) Hypothyroidism, unspecified; Translations: [Hypothyroidism, unspecified] Onset: 03-13-2024 Chronic Unclassified (1 source) Cough, unspecified; Translations: [Cough, unspecified] Onset: 07-29-2024 Urinary tract infections (4 sources) Urinary tract infectious disease; Translations: [Urinary tract infection, site not specified] 01-04-2021 Episodic Past or Other Problems Problem Classification Problem Date Documented Date Episodic/Chronic Abdominal hernia (3 sources) Diaphragmatic hernia without obstruction or gangrene; Translations: [Diaphragmatic hernia without obstruction or gangrene] Onset: 06-17-2022 Episodic Abdominal pain (2 sources) Unspecified abdominal pain; Translations: [Unspecified abdominal pain] Onset: 11-22-2023 Episodic Biliary tract disease (3 sources) Other specified diseases of gallbladder; Translations: [Other specified diseases of gallbladder] Onset: 12-01-2023 Episodic Genitourinary symptoms and ill-defined conditions (2 sources) Urinary symptoms ; Translations: [Unspecified symptoms and signs involving the genitourinary system] Onset: 11-28-2023 11-10-2022 Episodic Other aftercare (1 source) Other senior living (current) drug therapy; Translations: [Other senior living (current) drug therapy] Onset: 03-07-2024 Episodic Other diseases of kidney and ureters (1 source) Disorder of kidney and ureter, unspecified; Translations: [Disorder of kidney and ureter, unspecified] Onset: 11-22-2023 Episodic Results Test Name Value Interpretation Reference Range Facility Pulmonary Visit Reporton Pulmonary Visit Report [facility] [address] [place], [place] [address] OFFICE VISIT Date of Service: 09/03/24 MR#: [id number] Acct: [id number] Name: ESLVIN ROSAS Rep #: [id number] : 1945 Provider: La Hernandez NP Age/Sex: 78/F Location[facility] Status: Signed Assessment and Plan Assessment and Plan (1) Shortness of breath: Plan: There has been improvement in her lung functioning's when compared to previous PFT from July 14, 2022. I am concerned that there is a cardiovascular component present as her shortness of breath is predictable and she has a longer recovery time. I plan to send a message to Gino Valdez CNP Cardiology to notify him of her shortness of breath, the patient indicates that she would be agreeable to a stress test. The working diagnosis for shortness of breath includes cardiovascular disease, deconditioning, pulmonary hypertension. COPD is less likely as there are preserved lung volumes and diffusion capacity. Asthma is less likely as there is no significant reversibility with use of beta agonist seen on the PFT and no evidence of small airway disease. Echocardiogram from 2021 shows a pulmonary artery pressure of 24 mmHg. If pulmonary pretension is present I suspect that it is secondary and could be due to sleep disordered breathing. I have recommended that the patient undergo sleep testing at this time. I have offered to order this from this practice but the patient would like to discuss this with her PCP. She reports that she has an appointment with her PCP in the next few weeks. (2) Cough: Status: Acute Qualifiers: Cough type: chronic Qualified Code(s): R05.3 - Chronic cough Plan: The NIOX is within normal limits but the patient has audible wheeze today and is working to recover from a recent respiratory illness. I do believe that she would benefit from the use of oral prednisone so I have prescribed a short course accordingly. She is to continue with use of Stiolto. At this point I do not plan to add an ICS to her regimen as there is no indication on the recent PFT and I would like to await further workup from cardiology. (3) Obesity: Status: Chronic Qualifiers: Body mass index: BMI 37.0-37.9 Obesity classification: adult class 2 (BMI 35 - 39.9) Obesity type: due to excess calories Serious obesity comorbidity presence: without serious comorbidity Qualified Code(s): E66.812 - Obesity, class 2; E66.09 - Other obesity due to excess calories; Z68.37 - Body mass index [BMI] 37.0-37.9, adult Plan: Weight loss should be obtained through prudent diet and daily exercising. Orders: Orders NIOX Today R05.3 - Chronic cough Medications: New prednisone Take 3 tablets daily for 3 days, then 2 tablets daily for 2 days. 10 mg PO DIRECTED 13 tabs 0RF R05.3 - Chronic cough Plan Details Follow Up: 3 Months (LMR) HPI HPI Comments Details: Patient is a 78-year-old female, currently under the care of [facility], who presents today to review recent testing. She has a history of dyspnea on exertion and COVID. Since last visit, she reports that she has had a cold for 3 weeks. She has been using Mucinex and Benadryl. She reports that she has had a a lot of sinus drainage including a nonproductive cough. She denies fever. She reports that she did have chills and bodyaches but this has been resolved for the past 2 weeks. She does have brown nasal drainage. She reports that wheezing has been present at night. She reports that she has had improvement in her respiratory symptoms from when they first began. She has had shortness of breath with exertion. Even prior to the current illness she has had shortness of breath which has made it difficult for her to clean her house. She reports that she is no longer able to garden. She reports that he takes her 15 to 20 minutes to catch her breath. She indicates that they walk down to her mailbox and across the street to talk to the neighbor will cause the shortness of breath. She reports that she has to stop the activity and wait until she can catch her breath to be able to talk to the neighbor. She has continued to use Stiolto with good benefit. Patient denies any complication when she is using the inhaler. Patient states she did have COVID in March and feels that she is still having issues with recovery. The patient feels like her symptoms started with COVID in June 2019. The patient indicates that her [employer] team member had recommended a stress test and she was planning to further discuss this in October 2024. She is a former smoker at 1.5 packs/day for 43 years and quit in 2005. 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 Normal [facility] Pulmonary Visit Reporton Pulmonary Visit Report [facility] [address] [place] [address] OFFICE VISIT Date of Service: 07/10/24 MR#: [id number] Acct: [id number] Name: SELVIN ROSAS Rep #: [id number] : 1945 Provider: La Hernandez NP Age/Sex: 78/F Location[place] [facility] Status: Signed Assessment and Plan Assessment and Plan (1) Shortness of breath: Plan: The working diagnosis for shortness of breath includes asthma, COPD, deconditioning, pulmonary hypertension. I recommend repeating the PFT as it has been a few years since she has had lung testing. If reversibility is seen on PFT then I will consider adding an ICS to her regimen. If the gas transfer abnormality has worsened then I will plan to repeat the echocardiogram on follow-up. Reinstitute use of Stiolto Respimat. A prescription was sent to her pharmacy and she was provided with samples today. The patient does understand that her blood pressure is elevated. I have recommended that she follow-up with her PCP/[employer] team member for further management (2) Cough: Status: Acute Qualifiers: Cough type: chronic Qualified Code(s): R05.3 - Chronic cough Plan: The NIOX is within normal limits and does not suggest a need for oral prednisone today. I believe that the cough is due to coming off of inhaled therapy for some time. I have asked for her to reinstitute the use of inhaled therapy and I plan to reassess on follow-up. I have recommended a PFT prior to follow-up. (3) Obesity: Status: Chronic Qualifiers: Obesity type: due to excess calories Obesity classification: adult class 2 (BMI 35 - 39.9) Serious obesity comorbidity presence: without serious comorbidity Body mass index: BMI 37.0-37.9 Qualified Code(s): E66.812 - Obesity, class 2; E66.09 - Other obesity due to excess calories; Z68.37 - Body mass index [BMI] 37.0-37.9, adult Plan: Weight loss should be obtained through prudent diet and daily exercising. Orders: Orders NIOX Today R05.9 - Cough, unspecified PFT Complete - DLCO, Spirometry b/a bronchodilators, lung volumes 07/24/24 R05.9 - Cough, unspecified Medications: Refilled tiotropium-olodaterol 2.5-2.5 mcg/actuation (Stiolto Respimat) 2 puffs inhalation DAILY 3 device 3RF Plan Details Follow Up: 6 Weeks (LMR) HPI HPI Comments Details: Patient is a 78-year-old female, currently under the care of [facility], who is overdue for her yearly visit. She has a history of dyspnea on exertion and COVID. Since last visit, patient denies any ER visits, hospitalizations, antibiotics or prednisone burst for respiratory symptoms. Patient had been using Stiolto therapy, she has been out of her inhaler for a few weeks. Patient denies any complication such as dry mouth, hoarseness or problems urinating when she was using the inhaler. Patient states she did have COVID in March and feels that she is still having issues with recovery. The patient feels like her symptoms started with COVID in June 2019. She is a former smoker at 1.5 packs/day for 43 years and quit in 2005. She continues to have shortness of breath with all exertion. This has worsened since she has been off the inhaler. She reports that wheezing is the most prominent symptoms. She also has a dry cough. She is now experiencing some chest tightness. She denies fever, chills, body aches. She has gained 6 pounds since last follow up. Intake Vital Signs 09/27/23 09:42 07/10/24 05:24 Height 5 ft 7 in 5 ft 7 in Weight: 239 lb BMI 37.4 BP 150/77 H Blood Pressure Location Lt brachial Position Sitting Respiration 20 H Pulse 89 Pulse Source Monitor Temp 97.1 F L Temperature Source Temporal Artery Pulse Oximetry (%) 95 Oxygen Delivery Method room air Intake Visit Reasons: Over due for f/u Sterilization Tech Required: No DME Vendor: n/a Accompanied by: Is patient in pain?: No Allergies hydrochlorothiazide Adverse Reaction (Intermediate, Verified 07/10/24 10:53) Makes hot flashes worse, also sulfa in it. latex Adverse Reaction (Verified 07/10/24 10:53) Rash Penicillins Adverse Reaction (Verified 07/10/24 10:53) Hives Sulfa (Sulfonamide Antibiotics) Adverse Reaction (Verified 07/10/24 10:53) Hives Medications ???Medication ???Instructions ???Recorded ???Confirmed ???Type pantoprazole 40 mg tablet,delayed 40 mg PO DAILY 01/30/18 07/10/24 History release fluoxetine 40 mg capsule 40 mg PO DAILY 01/18/22 07/10/24 H istory melatonin 10 mg capsule 10 mg PO QHS PRN 01/18/22 07/10/24 History levothyroxine 50 mcg capsule 75 mcg PO DAILY 05/22/23 07/10/24 History losartan 50 mg tablet 50 mg PO DAILY #90 tabs 09/27/23 0 07/10/24 Rx tiotropium 2.5 mcg-olodaterol 2.5 2 puff inhalation DAILY #3 device 07/10/24 07/10/24 Rx mcg/actu (more content not included)... Normal [facility] TSHon 03-13-2024 TSH Qn 2.01 m[IU]/L Normal 0.35 - 3.74 [facility] Comment on above: Performed By: #### 2 13776 #### [facility],[address] [place] [address] CMP with eGFRon 03-07-2024 AGE 78 years Normal [facility] Comment on above: Performed By: #### 2 97078 #### [facility],[address] [place] [address] Albumin [Mass/Vol] 3.4 g/dL Normal 3.4 - 5.0 [facility] Comment on above: Performed By: #### 2 60828 #### [facility],[address] [place] [address] 10633 Albumin/Globulin [Mass ratio] 1.0 {ratio} Normal 0.9 - 1.6 [facility] Comment on above: Performed By: #### 2 24667 #### [facility],[address] [place] [address] 34196 ALK PHOS 120 U/L High 46 - 116 [facility] Comment on above: Performed By: #### 2 40755 #### [facility],[address] [place] [address] 84880 ALT [Catalytic activity/Vol] 31 U/L Normal 16 - 63 [facility] Comment on above: Performed By: #### 2 90614 #### [facility],[address] [place] [address] 24052 Anion gap [Moles/Vol] 11 mmol/L Normal 10 - 20 [facility] Comment on above: Performed By: #### 2 67119 #### [facility],[address] [place] [address] 09944 AST [Catalytic activity/Vol] 20 U/L Normal 13 - 39 [facility] Comment on above: Performed By: #### 2 31108 #### [facility],[address] [place] [address] 58093 B/C RATIO 21 ratio Normal 0 - 30 [facility] Comment on above: Performed By: #### 2 27979 #### [facility],[address] [place] [address] 68066 Bilirubin [Mass/Vol] 0.3 mg/dL Normal 0.2 - 1.0 [facility] Comment on above: Performed By: #### 2 12268 #### [facility],[address] [place] [address] 45358 Calcium [Mass/Vol] 8.6 mg/dL Normal 8.5 - 10.1 [facility] Comment on above: Performed By: #### 2 90181 #### [facility],[address] [place] [address] 35258 Chloride [Moles/Vol] 106 mmol/L Normal 98 - 107 [facility] Comment on above: Performed By: #### 2 27594 #### [facility],[address] [place] [address] 36315 CMP with eGFR Normal [facility] Comment on above: Result Comment: COMP REHENSIVE METABOLIC PANEL Performed By: #### 2 61250 #### [facility],[address] [place] [address] 68291 CO2 [Moles/Vol] 29.3 mmol/L Normal 21.0 - 32.0 [facility] Comment on above: Performed By: #### 2 89655 #### [facility],[address] [place] [address] 26201 Creatinine [Mass/Vol] 0.72 mg/dL Normal 0.55 - 1.02 [facility] Comment on above: Performed By: #### 2 26097 #### [facility],[address] [place] [address] 56194 GFR/1.73 sq M.predicted among non-blacks MDRD (S/P/Bld) [Vol rate/Area] mL/min/{1.73_m2} Normal 60 - 999 [facility] Comment on above: Performed By: #### 2 73635 #### [facility],[address] [place] [address] 07073 Result Comment: ACCO RDING TO THE NATIONAL KIDNEY DISEASE EDUCATION PROGRAM(NKDE), A NORMAL eGFR IS A VALUE GREATER THAN OR EQUAL TO 60 ML/MIN/1.73 SQ METERS. CHRONIC KIDNEY DISEASE: <60mL/MIN/1.73 SQ METERS KIDNEY FAILURE: <15mL/MIN/1.73 SQ METERS THIS TEST SHOULD ONLY BE USED FOR PATIENTS 18 YEARS OF AGE AND OLDER. Globulin (S) [Mass/Vol] 3.5 g/dL Normal 1.5 - 3.8 [facility] Comment on above: Performed By: #### 2 39243 #### [facility],[address] [place] [address] 78276 Glucose [Mass/Vol] 92 mg/dL Normal 74 - 106 [facility] Comment on above: Performed By: #### 2 81133 #### [facility],[address] [place] [address] 23868 Potassium [Moles/Vol] 4.0 mmol/L Normal 3.5 - 5.1 [facility] Comment on above: Performed By: #### 2 21964 #### [facility],[address] [place] [address] 05641 Protein [Mass/Vol] 6.9 g/dL Normal 6.4 - 8.2 [facility] Comment on above: Performed By: #### 2 04149 #### [facility],[address] [place] [address] 10372 Sodium [Moles/Vol] 142 mmol/L Normal 136 - 145 [facility] Comment on above: Performed By: #### 2 88990 #### [facility],[address] [place] [address] 17608 Urea nitrogen [Mass/Vol] 15 mg/dL Normal 7 - 18 [facility] Comment on above: Performed By: #### 2 10912 #### [facility],[address] [place] [address] 77378 LIPID PROFILEon 03-07-2024 Cholesterol [Mass/Vol] 236 mg/dL Normal 0 - 240 [facility] Comment on above: Performed By: #### 2 44647 #### [facility],[address] [place] [address] 63178 Cholesterol in HDL [Mass/Vol] 58 mg/dL Normal 40 - 60 [facility] Comment on above: Performed By: #### 2 37124 #### [facility],[address] [place] [address] 92934 Cholesterol in LDL [Mass/Vol] 145 mg/dL High 0 - 129 [facility] Comment on above: Performed By: #### 2 82238 #### [facility],[address] [place] [address] Cholesterol.total/ Cholesterol in HDL [Mass ratio] 4.1 {ratio} Normal 0.0 - 5.0 [facility] Comment on above: Performed By: #### 2 93527 #### [facility],[address] [place], [place] [id number] Lipid 1996 panel Normal [facility] Comment on above: Result Comment: LIPI D PROFILE Performed By: #### 2 56167 #### [facility],[address] [place] [address] Triglyceride [Mass/Vol] 166 mg/dL High 0 - 150 [facility] Comment on above: Performed By: #### 2 46523 #### [facility],[address] [place] [address] OPERATIVE PROCEDURESon 12-26 OPERATIVE PROCEDURES [facility] OPERATIVE REPORT NAME ACCOUNT SEX AGE ADMIT DISCHARGE PT MED. RECORD# NUMBER DATE DATE TYPE ALISON [id number] F 78 12/11/23 12/11/23 2 SELVIN Lara [id number] ROOM: [facility] DATE OF : 1945 DICTATING PHYSICIAN: David Marcano DATE OF SURGERY: December 11, 2023 SURGEON: David Marcano MD IP ARCHITECT: First Alvin Morrissey ANESTHESIOLOGIST: Yazan Mike CRNA ANESTHETIC: Local anesthesia, 30 mL of 0.25% Sensorcaine with epinephrine. PREOPERATIVE DIAGNOSIS: POSTOPERATIVE DIAGNOSES: 1. Biliary colic. 2. Acute on chronic cholecystitis. 3. Gallbladder sludge. 4. Dense adhesions. OPERATION PERFORMED: Laparoscopic cholecystectomy with lysis of adhesions. COMPLICATIONS: ESTIMATED BLOOD LOSS: Less than 5 mL. FLUIDS GIVEN: 600 mL of crystalloid. SPECIMEN: Gallbladder to Pathology. DISPOSITION: Stable to recovery. INDICATIONS: Selvin Rosas is a 78-year-old female who has a history of abdominal pain in a pattern consistent with biliary colic and gallbladder sludge by ultrasound. DESCRIPTION OF OPERATION: After informed consent, intravenous fluids, and antibiotics, she was brought to the operating room and placed on the table in supine Page 1 of 2 SELVIN ROSAS Operative Report Marco ROSAS : 1945 position with adequate padding at pressure points. She was given anesthesia, prepped and draped in the usual sterile fashion, and time-out and verification were done. The abdomen was palpated, demarcated, and then locally anesthetized with approximated 30 mL of 0.25% Marcaine with epinephrine at the trocar sites. The infraumbilical trocar was placed in the epigastric and right-sided trocars were placed with good visualization. The patient was rotated left and in reverse Trendelenburg. The gallbladder was visualization. The tip of the gallbladder was elevated superiorly and laterally. There were dense adhesions around the gallbladder. There appeared to be edema, erythema, and both acute and chronic cholecystitis. The dissection was carried down towards the triangle of Calot as the adhesions were carefully lysed. The cystic artery and its branches were dissected free. The cystic artery was doubly cross-clamped proximally, and then with Weck polymer clips then divided distally with Harmonic scalpel. Eventually, the cystic duct was skeletonized, and care taken not to tent the common bile duct. The cystic duct was then doubly cross-clamped proximally with Weck polymer clips and cross-clamped distally with polymer clips, and then sharply transected. Then using gentle traction and counter traction, the gallbladder was dissected away from the liver bed and oozing points coagulated. Prior to division of the last peritoneal reflections, the liver bed and the triangle of Calot were carefully inspected for good hemostasis. The gallbladder itself was sent to Pathology. The gallbladder bed and the triangle of Calot were irrigated, checked for good hemostasis, and then the patient was rotated to the right and into Trendelenburg. The irrigant was suctioned and removed, and the table leveled again. Then, the trocars were removed under direct visualization. The epigastric and infraumbilical fascial edges were nicely approximated with #1 Vicryl, skin edges were brought in approximation with inverted interrupted #1 Vicryl and skin edges nicely closed with inverted interrupted 2-0 PDS followed by Benzoin, Steri-Strips, and sterile dressings. The patient tolerated the procedure well, was awakened, and sent to the recovery room in good condition. The case will be discussed with the patient and family when she more awake and alert. Follow-up for pathology will be in my office. Dictated By: David Marcano MD 12/11/23 09:10 JOB #: [id number] Transcribed By: am 12/11/23 11:51 Electronically signed by: E-Sign Dr. David Marcano MD 12/27/23 14:50 Page 2 of 2 SELVIN ROSAS Operative Report J Normal [facility] CHEST 2 VIEWSon 12-01-2023 CHEST 2 VIEWS [place] [address] Patient: SELVIN ROSAS. Phone#: : [phone] Age: 78 Gender: F Pt. Type: Out Account: [id number] Location: [facility] Ordering: DAVID MARCANO Exam Date: 12/01/2023/8:50 Family Phys: SISI YORK Charge Code: [id number] Physician: [place] Order #: [id number] Dose#: PROCEDURE: X-RAY CHEST 2 VIEWS COMPARISON: [facility], XR, CHEST 2 VIEWS, 07/07/2022, 13:10. INDICATIONS: Sludge in gallbladder. FINDINGS: LUNGS: Normal. No significant pulmonary parenchymal abnormalities. VASCULATURE: Normal. Unremarkable pulmonary vasculature. CARDIAC: Normal. No cardiac silhouette abnormality or cardiomegaly. MEDIASTINUM: The aorta is ectatic. PLEURA: Normal. No effusion or pleural thickening. BONES: Normal. No fracture or visible bony lesion. OTHER: Negative. CONCLUSION: No acute disease. No significant change has occurred. Dictated by: Lisa Garcia MD on 12/01/2023 at 15:49 Approved by: Lisa Garcia MD on 12/01/2023 at 15:50 Normal [facility] URINE CULTURE [CCL]on 2023 Bacteria identified Cx Nom (U) URCUL See Results Below See Below CULTURE, URINE MIXED MICROBIOTA 50,000-<100,000 CFU/ml Mixed microbiota No further workup. Mixed microbiota can be due to???urine???contaminati on with s SOURCE: Urine (Nonspecific) [facility] [employer] [address] [place] [address] Brent Cary III, M.D. [id number] SEND TO IC YES Normal [facility] Comment on above: Performed By: #### 2 70783 #### [facility],[address] [place], [place] [address] Bacteria Ur Culton 4 Bacteria identified Cx Nom (U) ORGANISM ID: 1 50,000-<100,000 CFU/ml Mixed microbiota No further workup. Mixed microbiota can be due to???urine???contaminati on with skin bacteria at time of collection or presence of a long-term urinary catheter. If a new culture is needed, please consider re-education of the patient on proper midstream collection technique or straight catheterization for???urine???collection . Normal [facility] Comment on above: Performed By: #### 6 30-4 #### [facility] CLIA [id number] [facility] CBC + DIFFon 11-28-2023 Baso # 0.04 x10EE3/UL Normal 0.00 - 0.10 [facility] Comment on above: Performed By: #### 2 30852 #### [facility],[address] [place] [address] 15400 Basophils/100 WBC (Bld) 0.4 % Normal 0.0 - 2.0 [facility] Comment on above: Performed By: #### 2 27534 #### [facility],[address] [place] [address] 84997 CBC + DIFF Normal [facility] Comment on above: Result Comment: CBC- COMPLETE BLOOD COUNT Performed By: #### 2 55567 #### [facility],[address] [place] [address] 74792 EO # 0.06 x10EE3/UL Normal 0.00 - 0.50 [facility] Comment on above: Performed By: #### 2 03620 #### [facility],[address] [place] [address] 25899 Eosinophils/100 WBC (Bld) 0.7 % Normal 0.0 - 7.0 [facility] Comment on above: Performed By: #### 2 84351 #### [facility],[address] [place] [address] Erythrocyte distribution width (RBC) [Ratio] 14.3 % Normal 12.0 - 15.6 [facility] Comment on above: Performed By: #### 2 74595 #### [facility],[address] [place] [address] Hematocrit (Bld) [Volume fraction] 36.7 % Normal 34.0 - 46.0 [facility] Comment on above: Performed By: #### 2 65773 #### [facility],[address] [place] [address] Hemoglobin (Bld) [Mass/Vol] 12.1 g/dL Normal 12.0 - 16.0 [facility] Comment on above: Performed By: #### 2 87994 #### [facility],[address] [place] [address] Lymph # 1.49 x10EE3/UL Normal 0.80 - 2.80 [facility] Comment on above: Performed By: #### 2 60286 #### [facility],[address] [place], [place] [address] Lymphocytes/100 WBC (Bld) 16.1 % Low 20.0 - 45.0 [facility] Comment on above: Performed By: #### 2 08863 #### [facility],[address] [place] [address] 72222 MANUAL DIFF N/A Normal [facility] Comment on above: Performed By: #### 2 62116 #### [facility],[address] [place] [address] 07107 MCH (RBC) [Entitic mass] 27 pg Normal 27 - 33 [facility] Comment on above: Performed By: #### 2 79785 #### [facility],[address] [place] [address] MCHC 33 X10 3 Normal 32 - 36 [facility] Comment on above: Performed By: #### 2 29446 #### [facility],[address] [place], [place] [address] MCV (RBC) [Entitic vol] 83 fL Normal 80 - 99 [facility] Comment on above: Performed By: #### 2 12121 #### [facility],[address] [place] [address] Rich # 0.51 x10EE3/UL Normal 0.20 - 1.00 [facility] Comment on above: Performed By: #### 2 29260 #### [facility],[address] [place] [address] MONOS % 5.6 % Normal 0.0 - 10.0 [facility] Comment on above: Performed By: #### 2 72287 #### [facility],[address] [place], [place] [address] Morphology Brandon (Bld) [Interp] N/A Normal [facility] Comment on above: Performed By: #### 2 36122 #### [facility],[address] [place] [address] Neut # 7.13 x10EE3/UL High 1.50 - 7.10 [facility] Comment on above: Performed By: #### 2 71416 #### [facility],[address] [place] [address] Neutrophils/100 WBC (Bld) 77.3 % High 46.0 - 76.0 [facility] Comment on above: Performed By: #### 2 80239 #### [facility],[address] [place] [address] PLATELET 230 x10EE3/UL Normal 150 - 450 [facility] Comment on above: Performed By: #### 2 85367 #### [facility],[address] [place] [address] 71342 Platelet mean volume (Bld) [Entitic vol] 11.0 fL High 6.6 - 10.5 [facility] Comment on above: Result Comment: AUTO MATED DIFFERENTIAL Performed By: #### 2 82336 #### [facility],[address] [place] [address] 12724 RBC 4.44 x 10EE6/UL Normal 4.10 - 5.30 [facility] Comment on above: Performed By: #### 2 72780 #### [facility],[address] [place] [address] 02226 WBC 9.2 x 10EE3/UL Normal 4.5 - 10.8 [facility] Comment on above: Performed By: #### 2 38259 #### [facility],[address] [place] [address] 68779 CMP with eGFRon 11-28-2023 AGE 78 years Normal [facility] Comment on above: Performed By: #### 2 04910 #### [facility],[address] [place] [address] 60588 Albumin [Mass/Vol] 3.7 g/dL Normal 3.4 - 5.0 [facility] Comment on above: Performed By: #### 2 30474 #### [facility],[address] [place] [address] 57117 Albumin/Globulin [Mass ratio] 0.9 {ratio} Normal 0.9 - 1.6 [facility] Comment on above: Performed By: #### 2 33016 #### [facility],[address] [place] [address] 20584 ALK PHOS 119 U/L High 46 - 116 [facility] Comment on above: Performed By: #### 2 55029 #### [facility],[address] [place] [address] 59637 ALT [Catalytic activity/Vol] 23 U/L Normal 16 - 63 [facility] Comment on above: Performed By: #### 2 82116 #### [facility],[address] [place] [address] 84982 Anion gap [Moles/Vol] 15 mmol/L Normal 10 - 20 [facility] Comment on above: Performed By: #### 2 56420 #### [facility],[address] [place] [address] 28402 AST [Catalytic activity/Vol] 19 U/L Normal 13 - 39 [facility] Comment on above: Performed By: #### 2 88334 #### [facility],[address] [place] [address] 03740 B/C RATIO 19 ratio Normal 0 - 30 [facility] Comment on above: Performed By: #### 2 29532 #### [facility],[address] [place] [address] 96130 Bilirubin [Mass/Vol] 0.3 mg/dL Normal 0.2 - 1.0 [facility] Comment on above: Performed By: #### 2 16524 #### [facility],[address] [place] [address] 50345 Calcium [Mass/Vol] 9.0 mg/dL Normal 8.5 - 10.1 [facility] Comment on above: Performed By: #### 2 20792 #### [facility],[address] [place] [address] 21338 Chloride [Moles/Vol] 102 mmol/L Normal 98 - 107 [facility] Comment on above: Performed By: #### 2 38077 #### [facility],[address] [place] [address] 23975 CMP with eGFR Normal [facility] Comment on above: Result Comment: COMP REHENSIVE METABOLIC PANEL Performed By: #### 2 80675 #### [facility],[address] [place] [address] 53403 CO2 [Moles/Vol] 27.0 mmol/L Normal 21.0 - 32.0 [facility] Comment on above: Performed By: #### 2 39089 #### [facility],[address] [place] [address] 71514 Creatinine [Mass/Vol] 0.84 mg/dL Normal 0.55 - 1.02 [facility] Comment on above: Performed By: #### 2 83489 #### [facility],[address] [place] [address] 50267 GFR/1.73 sq M.predicted among non-blacks MDRD (S/P/Bld) [Vol rate/Area] mL/min/{1.73_m2} Normal 60 - 999 [facility] Comment on above: Performed By: #### 2 28917 #### [facility],[address] [place] [address] 69264 Result Comment: ACCO RDING TO THE NATIONAL KIDNEY DISEASE EDUCATION PROGRAM(NKDE), A NORMAL eGFR IS A VALUE GREATER THAN OR EQUAL TO 60 ML/MIN/1.73 SQ METERS. CHRONIC KIDNEY DISEASE: <60mL/MIN/1.73 SQ METERS KIDNEY FAILURE: <15mL/MIN/1.73 SQ METERS THIS TEST SHOULD ONLY BE USED FOR PATIENTS 18 YEARS OF AGE AND OLDER. Globulin (S) [Mass/Vol] 3.9 g/dL High 1.5 - 3.8 [facility] Comment on above: Performed By: #### 2 77493 #### [facility],[address] [place] [address] 31224 Glucose [Mass/Vol] 87 mg/dL Normal 74 - 106 [facility] Comment on above: Performed By: #### 2 48135 #### [facility],[address] [place] [address] 99662 Potassium [Moles/Vol] 4.0 mmol/L Normal 3.5 - 5.1 [facility] Comment on above: Performed By: #### 2 48543 #### [facility],[address] [place] [address] 57685 Protein [Mass/Vol] 7.6 g/dL Normal 6.4 - 8.2 [facility] Comment on above: Performed By: #### 2 29059 #### [address] [address] Sodium [Moles/Vol] 140 mmol/L Normal 136 - 145 [facility] Comment on above: Performed By: #### 2 09886 #### [address] [address] Urea nitrogen [Mass/Vol] 16 mg/dL Normal 7 - 18 [facility] Comment on above: Performed By: #### 2 83724 #### [address] [address] LIPASEon 11-28-2023 Lipase [Catalytic activity/Vol] 36.0 U/L Normal 15.0 - 78.0 [facility] Comment on above: Result Comment: *PLE ASE NOTE THAT RANGES FOR LIPASE HAVE CHANGED OF 04/28/23 DUE TO AN ASSAY UPDATE BY THE RAG SORTER AND CUTTER.THE NEW ASSAY RANGE IS 6-250 U/L, WITH A REFERENCE RANGE OF 16-77 U/L. Performed By: #### 2 [id number] #### [facility],[address] [place] [id number] US RUQ (GB/PANCREAS)on 11-21 US RUQ (GB/PANCREAS) [place] [address] Patient: SELVIN ROSAS Phone#: : 1945 Age: 78 Gender: F Pt. Type: Out Account: [id number] Location: 052 Ordering: DAVID MARCANO Exam Date: 11/22/2023/10:15 Family Phys: SISI YORK Charge Code: 800903 Physician: Erath Order #: [id number] Dose#: PROCEDURE: RUQ (GB) ULTRASOUND COMPARISON: None. INDICATIONS: Epigastric pain FINDINGS: LIVER: Liver is diffusely increased in echogenicity, this is most often secondary to diffuse fatty infiltration of the liver, though fibrosis may appear similar. Parenchymal changes limit evaluation for focal lesion, though none identified. BILIARY: Small amount of gallbladder sludge. Normal appearing gallbladder and biliary tree. Common bile duct diameter 4 mm. Gallbladder wall measures 0.2 cm in thickness. PANCREAS: Visualized portion of the pancreatic head and neck are hyperechoic. RIGHT KIDNEY: Mild renal parenchymal thinning and increased renal parenchymal echogenicity. OTHER: Negative. CONCLUSION: 1. Gallbladder sludge 2. Nonspecific increased echogenicity of the pancreas, correlate with laboratory values for pancreatitis. 3. Fatty infiltration of the liver 4. Medical renal disease. DICTATED BY: CINDA CHOWDHURY MD ON 11/22/2023 AT 17:32 APPROVED BY: CINDA CHOWDHURY MD ON 11/22/2023 AT 17:39 Normal [facility] ESOPHAGRAMon 11-10-2023 ESOPHAGRAM [place] [address] Patient: SELVIN ROSAS Phone#: : 1945 Age: 78 Gender: F Pt. Type: Out Account: [id number] Location: [facility] Ordering: DAVID MARCANO Exam Date: 11/10/2023/8:17 Family Phys: SISI YORK Charge Code: 609161 Physician: Erath Order #: [id number] Dose#: [id number] mGy PROCEDURE: X-RAY ESOPHAGRAM COMPARISON: None. INDICATIONS: Abdominal pain. TECHNIQUE: An esophagram was performed with fluoroscopy in the usual manner. TOTAL DOSE: 245.38 mGy Time: 3.3 minutes FINDINGS: STRUCTURE: There is a small intermittent hiatal hernia. MOTILITY: Normal motility. REFLUX: Reflux was not elicited with provocative maneuvers however intermittent reflux noted when the patient was in supine positioning with reflux to the upper esophagus. OTHER: Negative. CONCLUSION: 1. Small hiatal hernia 2. Intermittent reflux, noted in supine positioning Dictated by: Cinda Chowdhury MD on 11/10/2023 at 11:03 Approved by: Cinda Chowdhury MD on 11/10/2023 at 11:09 Normal [facility] US EXTREMITY NONVASCULAR [place] ITEDon 10-25-2023 US EXTREMITY NONVASCULAR LIMITED [place] [address] Patient: SELVIN ROSAS. Phone#: : 1945 Age: 78 Gender: F Pt. Type: Out Account: [id number] Location: [facility] Ordering: [facility] Exam Date: 10/25/2023/7:59 Family Phys: Charge Code: [id number] Physician: Erath Order #: [id number] Dose#: PROCEDURE: ULTRASOUND NONVASCULAR LIMITED COMPARISON: None. INDICATIONS: Left upper arm mass TECHNIQUE: Sonography was performed of the clinically requested area of interest. FINDINGS: REGION IMAGED: Left upper arm palpable areas MASSES: In the left upper arm in the area palpable concern in the subcutaneous tissues there is a subtly hyperechoic lesion measuring 1.6 x 0.9 x 2.4 cm. A 2nd similar echogenic features measures 1.4 x 0.7 x 1.9 cm. These are most consistent with lipomas. FLUID COLLECTIONS: None. No abnormal fluid collection. OTHER: Negative. CONCLUSION: 1. LIPOMAS IN THE SUBCUTANEOUS TISSUE CORRESPONDING TO THE AREAS OF PALPABLE CONCERN Dictated by: Cinda Chowdhury MD on 10/25/2023 at 14:04 Approved by: Cinda Chowdhury MD on 10/25/2023 at 14:08 [facility] Tele[facility] (RADMN) -------- SELVIN ROSAS ([id number]) 1945 F [facility] Date Time Provider Department 06/22/23 PAULINE SÁNCHEZ During your visit today, we recorded the following information about you: Pauline Sánchez, RN 06/22/2023 1:43 PM Signed Called patient to notify the breast pathology results were benign per Dr. Lr. Informed patient a 6 month follow up is recommended. Patient verbalized understanding. Kelsey Kyara 09/06/2023 10:44 AM Signed Patient returned call wanting to schedule a six month follow up. No documentation in chart as to what specialist or procedure is needed to be scheduled. No active orders are in the patient's chart. Please contact patient to advise. Veronica Ashraf RN 2023 4:[address] Smith's note she will not need to follow up with him, she will just need a follow up mammogram in 6 months.HARIKA Mendiola Daniel P, MD 09/18/2023 2:16 PM Signed done Marin Smith MD 09/18/2023 2:16 PM Signed Addended by: MARIN SMITH on: 09/18/2023 02:16 PM Modules accepted: Orders Marin Smith MD 09/27/2023 7:13 AM Signed Mammogram orders have been placed Marin Smith MD 09/27/2023 7:13 AM Signed Addended by: MARIN SMITH on: 09/27/2023 07:13 AM Modules accepted: Orders Marin Smith MD 09/27/2023 7:14 AM Signed Addended by: MARIN SMITH on: 09/27/2023 07:14 AM Modules accepted: Orders Samreen Colvin LPN 10/03/2023 1:18 PM Signed [facility] Pool6 days ago SB Orders for bilateral mammogram have been placed. Please schedule patient for 6 month mammogram. Thank you in advance. Sincerely, Your General Surgery Care Team Patient scheduled for 03/2024. Encounter closed Samreen Colvin LPN October 03, 2023 1:18 PM Allergies As of Date: 06/22/2023 Noted Allergy Reaction PENICILLINS 12/09/2013 4 - Hives SULFA (SULFONAMIDE ANTIBIOTICS) 12/09/2013 4 - Hives Date Reviewed: 05/18/2023 Reviewed by: Samreen Colvin LPN - Fully Assessed Reason for Visit: Results [95] Primary Visit Diagnosis:Abnormal mammogram [R92.8] Order(s):[facility] DIAGNOSTIC RIGHT [[id number]] Order #: [id number] FUTURE [facility] DIAGNOSTIC BILATERAL [[id number]] Order #: [id number] FUTURE Prescriptions as of 10/03/2023 - losartan (COZAAR) 50 mg tablet Take 50 mg by mouth once daily. - pantoprazole DR (PROTONIX) 40 mg tablet Take 40 mg by mouth once daily. - tiotropium bromide (SPIRIVA RESPIMAT) 2.5 mcg/actuation inhaler Inhale 2 Puffs as instructed once daily. - FLUoxetine (PROZAC) 10 mg capsule Take 10 mg by mouth once daily. - FLUoxetine (PROZAC) 20 mg capsule Take 40 mg by mouth once daily. - CALCIUM CARBONATE (CALCIUM 500 ORAL) Take 1 tablet by mouth twice daily. - omeprazole (PRILOSEC) 20 mg capsule Take 20 mg by mouth once daily. - SUMAtriptan (IMITREX) 50 mg tablet Take 50 mg by mouth as needed. - levothyroxine (SYNTHROID) 50 mcg tablet Take 50 mcg by mouth daily before breakfast. - melatonin 10 mg tab Take 1 tablet by mouth at bedtime as needed. - diphenhydrAMINE (BENADRYL ALLERGY) 25 mg tablet Take 25 mg by mouth once daily. 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 *06/22/2015 Invasive ductal carcinoma of right breast in fe*03/30/2016 Malignant neoplasm of upper-inner quadrant of r*11/10/2016 Encounter Status:Closed by PAULINE SÁNCHEZ on 06/22/23 Normal [facility] DBT Breast - bilateral diagn ostic for implanton 06-21-2023 [facility] DIAG W HUNG BILon 2023 [facility] DIAG W HUNG BRITNI * * *Final Report* * * DATE OF EXAM: Jun 21 2023 11:14AM ELIZABETH 0627 - [facility] DIAG W HUNG BRITNI / PROCEDURE REASON: ABNORMAL MAMM * * * * Physician Interpretation * * * * #[id number] - [facility] DIAG W HUNG BRITNI #[id number] - [facility] US BREAST LTD BILATERAL DIGITAL DIAGNOSTIC MAMMOGRAM TOMOSYNTHESIS WITH CAD: 06/21/2023 HISTORY: Abnormal Mamm This patient had outside imaging performed, at which time right stereotactic biopsy was recommended and for which the patient presents today. On initial review of the imaging, there is significant motion on the outside imaging. Therefore, for targeting purposes, magnification views in the right CC and ML projections were obtained. In addition, patient is also presenting for diagnostic evaluation of the left breast as reported below. R92.8-Abnormal Finding On Radiological Examination Of Breast. RESULT: TECHNIQUE: The study was acquired using full field digital technology and interpreted from soft copy. Digital Breast Tomosynthesis (DBT) images were obtained and used to assist in the interpretation of this examination. Current study was also evaluated with a Computer Aided Detection (CAD). Comparison is made to exams dated: 03/29/2023 mammogram, 03/17/2023 mammogram, 12/06/2016 mammogram, 06/21/2016 mammogram, 01/19/2016 mammogram - [facility], and 06/04/2015 mammogram. The breasts are heterogeneously dense, which may obscure small masses. There are clustered amorphous calcifications in the right breast upper inner aspect middle depth. There is a surgical clip associated with the calcifications. There is a possible asymmetry in the left breast posterior depth inferior region seen on the mediolateral oblique view only. Finding is best noted on tomographic MLO slice 34. No other significant masses or calcifications are seen in either breast. IMPRESSION: SUSPICIOUS FINDING - BIOPSY SHOULD BE CONSIDERED The clustered amorphous calcifications in the right breast upper inner aspect middle depth are suspicious of malignancy. A stereotactic biopsy is recommended. Patient will have her stereotactic biopsy today. The possible asymmetry in the left breast posterior depth inferior region seen on the mediolateral oblique view only is indeterminate. An ultrasound is recommended. LIMITED ULTRASOUND OF LEFT BREAST: 06/21/2023 RESULT: Comparison is made to exams dated: 03/29/2023 mammogram, 03/17/2023 mammogram, 12/06/2016 mammogram, 06/21/2016 mammogram, 01/19/2016 mammogram - [facility], and 06/04/2015 mammogram. Color flow and real-time ultrasound of the left breast lower outer quadrant were performed. Ying scale images of the real-time examination were reviewed. Targeted ultrasound of the left breast was performed. At the 6:00 position, 4 cm from the nipple, there is an oval cyst which measures 0.5 x 0.3 x 0.4 cm. At the 4:00 position, in the subareolar tissue, there is a round cyst measuring 0.4 x 0.4 x 0.4 cm. At the 6:00 position, 3 cm from the nipple, there is an oval complicated cyst with internal septations measuring 0.8 x 0.3 x 0.5 cm. While I am not certain which (if any) specifically correlates with the mammogram, there is no sonographic evidence of malignancy. IMPRESSION: PROBABLY BENIGN - SHORT TERM INTERVAL FOLLOW-UP RECOMMENDED Multiple benign simple and complicated cysts. No further imaging of the cysts at 6:00, 4 cmfn and 4:00, subareolar is necessary. The oval complicated cyst at 6:00, 3 cmfn is also likely benign. However, given the patient's remote history of RIGHT breast cancer, I recommend short interval follow up with repeat imaging in 6 months to assess for stability. SUMMARY: I recommend: 1. right stereotactic biopsy will be performed today 2. left six month follow up ultrasound. Nette ibrahim/benjamin:06/21/2023 11:39:10 Multiple national specialty organizations have released breast cancer screening guidelines for women at average risk for developing breast cancer - guidelines that are based on both evidence and opinion, yet differ on when to start and how often to screen for breast cancer. With representation from Breast Imaging, Internal Medicine, Women's Health, Family Medicine, and Medical/Surgical Oncology, the [facility] has carefully reviewed the data and reached the following consensus: 1) All women should engage in shared decision-making with their providers to decide when to start and how often to screen; 2) All women should have the opportunity to start screening mammography at age 40; 3) For women ages 45-55, we recommend annual screening mammograms; 4) For women ages 55 and over, we support both the transition from an annual to a biennial interval if this aligns more with patient's values and preferences, or continuation with annual screening; 5) All women should discuss with their providers when to stop screening mammograms. Imaging Technol (more content not included)... Normal [facility] STEREO BX BREAST RTon [facility] STEREO BX BREAST RT * * *Final Report* * * * * * SEE BOTTOM OF REPORT FOR ADDENDED TEXT * * * DATE OF EXAM: Jun 21 2023 11:14AM ELIZABETH 0631 - [facility] STEREO BX BREAST RT / PROCEDURE REASON: R92.8-Abnormal finding on radiological examination of breast * * * * Physician Interpretation * * * * FINAL REPORT #[id number] - [facility] STEREO BX BREAST RT STEREOTACTIC GUIDED BIOPSY RIGHT BREAST USING VACUUM DEVICE WITH MARKING DEVICE INSERTED AND POST DIGITAL MAMMOGRAPHIC IMAGING AND RADIOGRAPHIC SPECIMEN IMAGIN06/21/2023 HISTORY: /The patient presents for right stereotactic vacuum assisted needle biopsy as recommended from recent imaging study dated performed earlier today. Pre and post fire hard copy mammographic images were obtained. Right breast upper inner calcifications (tophat clip). PATIENT CONSENT: A time out was performed immediately prior to procedure start with the radiology team, correctly identifying the patient name, date of , procedure, anatomy (including marking of site and side), patient position, relevant diagnostic and radiology test results, safety precautions, and procedure-specific equipment needs. The procedure was explained to the patient including the risks, benefits and alternatives. Medications and allergies were also reviewed. The risks, including but not limited to infection and bleeding, were reviewed by the performing physician and the patient agreed to undergo the procedure. The radiologist and two technologists were present throughout the entire procedure. Time out: 1040 Procedure start: 1041 Procedure end: 1053 . Correlation is made to exams dated: 06/21/2023 mammogram - [facility], 03/29/2023 mammogram, and 03/17/2023 mammogram. A stereotactic guided biopsy was performed for the area of grouped calcifications located in the right breast upper inner aspect middle depth. The skin was prepped in the usual manner. Local anesthetic was administered to the access site. A skin choco was made in the breast. The abnormality was approached using a prone table. A 12 gauge biopsy needle was placed adjacent to the abnormality under computer guidance and confirmatory stereotactic mammography images were obtained to document needle placement. Once the needle was documented to be in the correct location, eight cores were obtained using the NicOx system. A top hat clip was inserted into the biopsy cavity. A skin adhesive, a skin closure strip, and a sterile dressing were applied to the access site. Post procedure digital mammographic imaging demonstrates the location device at the targeted area and partial removal of the calcifications. The specimens were sent to the laboratory for pathological analysis. The specimen contains two amorphous calcifications, but no punctate calcifications. IMPRESSION: STEREOTACTIC GUIDED BIOPSY BENIGN Stereotactic guided biopsy of the area of grouped calcifications in the right breast upper inner aspect middle depth with placement of a clip was successful with no apparent post procedure complications. The imaged cores includes the calcifications. Pathology indicates benign fat necrosis (FN) and stromal fibrosis with calcifications present. Pathology results are concordant with mammography findings. A follow-up mammogram of biopsied breast in 6 months is recommended to demonstrate stability. SUMMARY: Pathology results are as follows: FINAL DIAGNOSIS A. Right breast, Top-Hat clip, stereotactic needle core biopsy: ? Breast tissue with stromal fibrosis, fat necrosis and associated calcifications. The patient will be notified of the concordant pathology results by phone by the Breast imaging navigator. She should return in six months for imaging follow up. Nette ibrahim/benjamin:06/22/2023 13:39:35 Attending Technologist(s): RT Racquel(R)(M), [facility] Health Insurance Specialist(s): RT Jaymie(R)(M), [facility] Multiple national specialty organizations have released breast cancer screening guidelines for women at average risk for developing breast cancer - guidelines that are based on both evidence and opinion, yet differ on when to start and how often to screen for breast cancer. With representation from Breast Imaging, Internal Medicine, Women's Health, Family Medicine, and Medical/Surgical Oncology, the [facility] has carefully reviewed the data and reached the following consensus: 1) All women should engage in shared decision-making with their providers to decide when to start and how often to screen; 2) All women should have the opportunity to start screening mammography at age 40; 3) For women ages 45-55, we recommend annual screening mammograms; 4) For women ages 55 and over, we support both the transition from an annual to a biennial interval if this aligns more with patient's values and preferences, or continuation with annual screening; 5) All women (more content not included)... Normal [facility] HOLLR BREAST LTD LTon 06-21 [facility] HOLLR BREAST LTD LT * * *Final Report* * * DATE OF EXAM: Jun 21 2023 9:58AM DANK [id number] - [facility] HOLLR BREAST LTD LT / PROCEDURE REASON: R92.8-Abnormal finding on radiological examination of breast * * * * Physician Interpretation * * * * #[id number] - [facility] QUINTIN Cord[place] HUNG BRITNI #[id number] - [facility] US BREAST LTD LT BILATERAL DIGITAL DIAGNOSTIC MAMMOGRAM TOMOSYNTHESIS WITH CAD: 06/21/2023 HISTORY: Abnormal Mamm This patient had outside imaging performed, at which time right stereotactic biopsy was recommended and for which the patient presents today. On initial review of the imaging, there is significant motion on the outside imaging. Therefore, for targeting purposes, magnification views in the right CC and ML projections were obtained. In addition, patient is also presenting for diagnostic evaluation of the left breast as reported below. R92.8-Abnormal Finding On Radiological Examination Of Breast. RESULT: TECHNIQUE: The study was acquired using full field digital technology and interpreted from soft copy. Digital Breast Tomosynthesis (DBT) images were obtained and used to assist in the interpretation of this examination. Current study was also evaluated with a Computer Aided Detection (CAD). Comparison is made to exams dated: 03/29/2023 mammogram, 03/17/2023 mammogram, 12/06/2016 mammogram, 06/21/2016 mammogram, 01/19/2016 mammogram - [facility], and 06/04/2015 mammogram. The breasts are heterogeneously dense, which may obscure small masses. There are clustered amorphous calcifications in the right breast upper inner aspect middle depth. There is a surgical clip associated with the calcifications. There is a possible asymmetry in the left breast posterior depth inferior region seen on the mediolateral oblique view only. Finding is best noted on tomographic MLO slice 34. No other significant masses or calcifications are seen in either breast. IMPRESSION: SUSPICIOUS FINDING - BIOPSY SHOULD BE CONSIDERED The clustered amorphous calcifications in the right breast upper inner aspect middle depth are suspicious of malignancy. A stereotactic biopsy is recommended. Patient will have her stereotactic biopsy today. The possible asymmetry in the left breast posterior depth inferior region seen on the mediolateral oblique view only is indeterminate. An ultrasound is recommended. LIMITED ULTRASOUND OF LEFT BREAST: 06/21/2023 RESULT: Comparison is made to exams dated: 03/29/2023 mammogram, 03/17/2023 mammogram, 12/06/2016 mammogram, 06/21/2016 mammogram, 01/19/2016 mammogram - [facility], and 06/04/2015 mammogram. Color flow and real-time ultrasound of the left breast lower outer quadrant were performed. Ying scale images of the real-time examination were reviewed. Targeted ultrasound of the left breast was performed. At the 6:00 position, 4 cm from the nipple, there is an oval cyst which measures 0.5 x 0.3 x 0.4 cm. At the 4:00 position, in the subareolar tissue, there is a round cyst measuring 0.4 x 0.4 x 0.4 cm. At the 6:00 position, 3 cm from the nipple, there is an oval complicated cyst with internal septations measuring 0.8 x 0.3 x 0.5 cm. While I am not certain which (if any) specifically correlates with the mammogram, there is no sonographic evidence of malignancy. IMPRESSION: PROBABLY BENIGN - SHORT TERM INTERVAL FOLLOW-UP RECOMMENDED Multiple benign simple and complicated cysts. No further imaging of the cysts at 6:00, 4 cmfn and 4:00, subareolar is necessary. The oval complicated cyst at 6:00, 3 cmfn is also likely benign. However, given the patient's remote history of RIGHT breast cancer, I recommend short interval follow up with repeat imaging in 6 months to assess for stability. SUMMARY: I recommend: 1. right stereotactic biopsy will be performed today 2. left six month follow up ultrasound. Nette ibrahim/benjamin:06/21/2023 11:39:10 Multiple national specialty organizations have released breast cancer screening guidelines for women at average risk for developing breast cancer - guidelines that are based on both evidence and opinion, yet differ on when to start and how often to screen for breast cancer. With representation from Breast Imaging, Internal Medicine, Women's Health, Family Medicine, and Medical/Surgical Oncology, the [facility] has carefully reviewed the data and reached the following consensus: 1) All women should engage in shared decision-making with their providers to decide when to start and how often to screen; 2) All women should have the opportunity to start screening mammography at age 40; 3) For women ages 45-55, we recommend annual screening mammograms; 4) For women ages 55 and over, we support both the transition from an annual to a biennial interval if this aligns more with patient's values and preferences, or continuation with annual screening; 5) All women should discuss with their providers when (more content not included)... Normal [facility] SURGICAL PATHOLOGYon 024 [facility]: Order Comment: Speci men Type: TISSUE SPECIMEN Ordering Facility: [facility] Address: [address] [place] [address] Result Comment: Surg ica Pathology Report Case: [id number] Authorizing Provider: Eddie Jessica MD, PhD Collected: 06/21/2023 10:44 AM Ordering Location: Mammography Received: 06/21/2023 01:16 PM Pathologist: Marco Rodriguez MD Specimen: BREAST CORE BIOPSY RIGHT, Right breast stereotactic biopsy with tophat clip Performed By: #### S #### [facility] CLIA [id number] [address] [place] [address] [place] FINAL DIAGNOSIS [facility] Comment on above: Order Comment: Sammy ariza Type: TISSUE SPECIMEN Ordering Facility: [facility] Address: [address] [place] [address] Result Comment: A. R ight breast, Top-Hat clip, stereotactic needle core biopsy: - Breast tissue with stromal fibrosis, fat necrosis and associated calcifications. JR 06/22/2023 Performed By: #### S #### [facility] CLIA [id number] [address] [place] [address] OF [place] FINAL PERFORMING LAB Normal [facility] Comment on above: Order Comment: Speci men Type: TISSUE SPECIMEN Ordering Facility: [facility] Address: [address] [place] [address] Result Comment: Diag nostic interpretation performed at [facility], [address] [place] [address] CLIA# [id number] Tea Bag Packer: Brent Cary M.D. Performed By: #### S #### [facility] CLIA [id number] [address] [place] [address] [place] GROSS DESCRIPTION [facility] [facility] Comment on above: Order Comment: Speci men Type: TISSUE SPECIMEN Ordering Facility: [facility] Address: [address] [place] [address] Result Comment: A. B REAST CORE BIOPSY RIGHT Received in formalin labeled as ``right breast? are multiple segments of cylindrical tissue aggregating to 2.5 x 1.8 x 0.1 cm, carias-white to yellow and carias-brown to brown and of a soft consistency. The specimen was removed from the patient at 10:44 on 06/21/2023. On the same day, the specimen was placed in formalin at 10:49. Totally submitted in formalin in one cassette. DB June 21, 2023 6:07 PM Gross examination performed at [facility], [address] [place] [address], [place] [address] Performed By: #### S #### [facility] CLIA [id number] [address] [place] [address] [id number] OF [facility] US Breast - left limitedon 0 06-21-2023 [facility] CNOVon 05-18-2023 CNOV Office Visit (GENSWS ) -------- SELVIN ROSAS ([id number]) 1945 F [facility] Date Time Provider Department 05/18/23 1:15 PM MARIN SMITH GENSWS During your visit today, we recorded the following information about you: Temperature Pulse Blood pressure Weight 98.5 degrees 95/minute 124/78 106.6 kg Height 1.702 m Samreen Colvin LPN 05/18/2023 1:22 PM Signed REVIEW OF SYSTEMS: General: The patient NOTES fatigue, denies weight loss, denies weight gain, NOTES feeling hot, and denies feelings of cold. Eyes: The patient denies glaucoma, denies eye injury/surgery, wears glasses or contacts. Ear/Nose/Throat: The patient NOTES allergies, denies hayfever, denies ear infections, and denies bloody noses. Cardiovascular: The patient denies chest pain, denies heart disease, NOTES high blood pressure,denies cardiac stent, denies prior heart attack, denies irregular heart beat, denies high cholesterol, denies poor circulation, denies heart failure, other cardiac issues, denies claudication, denies cold feet, denies peripheral arterial stent. Respiratory: The patient denies tuberculosis, denies pneumonia, NOTES frequent cough, denies pulmonary embolism, NOTES shortness of breath, and denies coughing up blood, NOTES copd Gastrointestinal: The patient denies difficulty swallowing, NOTES acid reflux, NOTES ulcers, denies vomiting, denies jaundice/hepatitis, denies gallbladder problems, denies black or tarry stools, denies hemorrhoids, denies bleeding from rectum, denies diverticulitis, denies constipation, denies diarrhea, denies loss of stool control, and denies hernias. Kidney/Bladder: The patient denies kidney stones, denies urine infections, and denies bloody urine. Skin: The patient denies a history of skin cancer, denies bleeding/changing moles, and denies a history of skin rash. Neurologic: The patient denies a history of epilepsy/convulsions, denies headaches, denies head/spinal injuries, and NOTES stroke/TIA. Psychiatric: The patient denies psychiatric medications, denies depression, and denies voices, denies substance abuse. Endocrine: The patient denies thyroid disorders, denies diabetes, and NOTES hormonal problems. Hematologic: The patient denies a history of bruising, denies bleeding, and denies anemia, denies blood clots. Infections: The patient denies a history of measles and mumps, denies rheumatic fever, and denies sexually transmitted diseases. Musculoskeletal: The patient denies back pain/injury, denies back problems, denies sciatica, denies knee/foot trouble, NOTES arthritis, or denies gout. When was patient's last Mammogram screening? 2022 Last Colonoscopy: 2022 AVTAR Sanchez Daniel P, MD 05/22/2023 12:40 PM Signed HISTORY AND PHYSICAL - BREAST COMPLAINT Selvin Rosas 1945 REFERRING PHYSICIAN: No ref. provider found CHIEF COMPLAINT: Mammographic microcalcification found on diagnostic imaging of breast (primary encounter diagnosis) HPI: The patient is a 77 year old female with a complaint of an abnormal mammogram. The patient had a mammogram without ultrasound on 03/17/23 which demonstrated right breast microcalcifications at the 2 o'clock position: The patient denies a history of breast masses. She does perform a self breast exam routinely. She notes no skin changes. She denies nipple discharge. She notes no axillary masses. She notes no family history of breast problems. She notes no significant breast trauma or breast difficulties in the past. 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 Thyroid condition On synthroid PAST SURGICAL HISTORY Procedure Laterality Date BIOPSY OF LIP 05/01/2012 excision lip lesion BUNIONECTOMY, LAPIDUS-TYPE Bilateral 05/01/2001 CATARACT SURGERY, COMPLEX 05/01/2012 bilateral LAP HYSTERECTOMY FOR UTERUS 250G OR LESS 05/01/1992 LUMPECTOMY/RADIOTHERAPY DIAG MAMM/A10 Right 2016 PILONIDAL CYST/SINUS EXCISION 05/01/1974 SLING OPER STRES INCONTINENCE 05/01/1999 Current Outpatient Medications Medication Sig Dispense Refill losartan (COZAAR) 50 mg tablet Take 50 mg by mouth once daily. pantoprazole DR (PROTONIX) 40 mg tablet Take 40 mg by mouth once daily. tiotropium bromide (SPIRIVA RESPIMAT) 2.5 mcg/actuation inhaler Inhale 2 Puffs as instructed once daily. FLUoxetine (PROZAC) 20 mg capsule Take 40 mg by mouth once daily. levothyroxine (SYNTHROID) 50 mcg tablet Take 50 mcg by mouth daily before breakfast. melatonin 10 mg tab Take 1 tablet by mouth at bedtime as needed. diphenhydrAMINE (BENADRYL ALLERGY) 25 mg tablet Take 25 m (more content not included)... Normal [facility] Michael 05-18-2023 [facility] Tele[facility] (MicronotesS) -------- ALISONSELVIN ([id number]) 1945 F [place] Date Time Provider Department 05/18/23 MARIN SMITH During your visit today, we recorded the following information about you: Judith Saxena 05/18/2023 1:[address] Smith patient to have right stereotactic. Orders are in the chart Per protocol email sent to Luis Manuel to have radiologist review and call patient to schedule accordingly Per patient aware of steps needed to be done and will be called to scheduled Patient aware to reach back out to office once procedures are scheduled to set an appointment up with Dr. Smith to go over results. 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 Smith and was given results that everything is okay. No cancer. Patient wondering if she should still come in for post op/follow up appointment with Dr. Smith on 06/28/[address]. [address] 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 - pantoprazole DR (PROTONIX) 40 mg tablet Take 40 mg by mouth once daily. - tiotropium bromide (SPIRIVA RESPIMAT) 2.5 mcg/actuation inhaler Inhale 2 Puffs as instructed once daily. - FLUoxetine (PROZAC) 10 mg capsule Take 10 mg by mouth once daily. - FLUoxetine (PROZAC) 20 mg capsule Take 40 mg by mouth once daily. - CALCIUM CARBONATE (CALCIUM 500 ORAL) Take 1 tablet by mouth twice daily. - omeprazole (PRILOSEC) 20 mg capsule Take 20 mg by mouth once daily. - SUMAtriptan (IMITREX) 50 mg tablet Take 50 mg by mouth as needed. - levothyroxine (SYNTHROID) 50 mcg tablet Take 50 mcg by mouth daily before breakfast. - melatonin 10 mg tab Take 1 tablet by mouth at bedtime as needed. - diphenhydrAMINE (BENADRYL ALLERGY) 25 mg tablet Take 25 mg by mouth once daily. 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 Pathology Reports Accession: Collected Date/Time: Received Date/Time: Pathologist: [id number] 06/17/2022 12:00 EST 06/20/2022 11:10 MARIN AVILA MD Final Surgical Pathology Report CORRECTED REPORT: THIS REPORT WAS CREATED TO CORRECT A BILLING ERROR. NO CHANGES HAVE BEEN MADE TO THE DIAGNOSIS. DIAGNOSIS: STOMACH, POLYP: - HYPERPLASTIC POLYP COMMENT: [facility] - [id number] CLINICAL INFORMATION: HIATAL HERNIA WITH GERD Procedure: EGD SPECIMEN: A ANTRAL POLYPS GROSS DESCRIPTION: A. Received in formalin, labeled with the patients name Selvin Rosas, Case #[id number], and antral polyps are multiple carias tissue fragments aggregating to 1.5 x 0.4 x 0.2 cm. TS-1 Dictated by Lila Esquivel MICROSCOPIC DESCRIPTION: The microscopic examination is performed, except in the case of Gross Only. Electronically Signed by Pathology Report verified by [facility] MARIN LECHUGA Sign out Date: 06/29/2022 17:06 Performing Lab: [facility], [address] [place] [address] Pathology Dept [facility] ([place] Final Surgical Pathology Report . Pathology Reports Accession: Collected Date/Time: Received Date/Time: Pathologist: [id number] 06/17/2022 10:36 EST 06/29/2022 10:36 MARIN AVILA MD Final Surgical Pathology Report DIAGNOSIS: STOMACH, POLYP - - HYPERPLASTIC POLYP. COMMENT: [facility] [id number] CLINICAL INFORMATION: EGD HIATAL HERNIA WITH GERD SPECIMEN: A ANTRAL POLYPS GROSS DESCRIPTION: A. Received in formalin labeled with the patient's name Selvin Rosas, Case #[id number], and Antral polyps are multiple carias tissue fragments aggregating to 1.5 x 0.4 x 0.2 cm. TS-1. Dictated by Lila Esquivel Dictated by MARIN LECHUGA MICROSCOPIC DESCRIPTION: Slides reviewed. Electronically Signed by Pathology Report verified by [facility] MARIN LECHUGA Sign out Date: 06/29/2022 14:35 Performing Lab: [facility], [address] [place] [address] Pathology Dept [facility] [place] COMPREHENSIVE METABOLIC PANE Lenny 03-01-2020 Albumin [Mass/Vol] 4.3 g/dL Normal 3.6-5.1 [facility] Comment on above: Performed By: #### 7 001, [id number], 507 #### [facility]-[address], [address] [place], [place] [id number] Management Architect: Porfirio Cox MD Albumin/Globulin [Mass ratio] 1.7 (calc) Normal 1.0-2.5 [facility] Comment on above: Performed By: #### 7 868, 71862, 331 #### [facility]-[address], [address] [place] [id number] Management Architect: Porfirio Cox MD ALP [Catalytic activity/Vol] 98 U/L Normal 37-153 [facility] Comment on above: Performed By: #### 7 913, 49415, 685 #### [facility]-[address], [address] [place] [phone] Management Architect: Porfirio Cox MD ALT [Catalytic activity/Vol] 12 U/L Normal 6-29 [facility] Comment on above: Performed By: #### 7 600, 16676, 899 #### [facility]-[address], [address] [place] [address] Management Architect: Porfirio Cox MD AST [Catalytic activity/Vol] 13 U/L Normal 10-35 [facility] Comment on above: Performed By: #### 7 600, 37508, 899 #### [facility]-[address], [address] [place] [address] Management Architect: Porfirio Cox MD Bilirubin [Mass/Vol] 0.3 mg/dL Normal 0.2-1.2 [facility] Comment on above: Performed By: #### 7 600, 92057, 899 #### [facility]-[address], [address] [place] [address] Management Architect: Porfirio Cox MD Calcium [Mass/Vol] 9.4 mg/dL Normal 8.6-10.4 [facility] Comment on above: Performed By: #### 7 600, 85891, 899 #### [facility]-[address], [address] [place] [address] Management Architect: Porfirio Cox MD Chloride [Moles/Vol] 104 mmol/L Normal 98-110 [facility] Comment on above: Performed By: #### 7 600, 62606, 899 #### [facility]-[place] [address] Management Architect: Porfirio Cox MD CO2 [Moles/Vol] 25 mmol/L Normal 20-32 [facility] Comment on above: Performed By: #### 7 600, 57317, 899 #### [facility]-[address], [address] [place] [address] Management Architect: Porfirio Cox MD Creatinine [Mass/Vol] 0.74 mg/dL Normal 0.60-0.93 [facility] Comment on above: Result Comment: For patients >49 years of age, the reference limit for Creatinine is approximately 13% higher for people identified as -Guyanese. Performed By: #### 7 600, 86914, 89 #### [facility]-[address], [address] [place] [address] Management Architect: Porfirio Cox MD eGFR NON-AFR. UKRAINIAN 80 mL/min/1.73m2 Normal > OR = 60 [facility] Comment on above: Performed By: #### 7 600, 06700, 89 #### [facility]-[address], [address] [place] [address] Management Architect: Porfirio Cox MD GFR/1.73 sq M predicted among blacks MDRD (S/P/Bld) [Vol rate/Area] 93 mL/min/{1.73_m2} Normal > OR = 60 [facility] Comment on above: Performed By: #### 7 600, 97246, 89 #### [facility]-[address], [address] [place] [address] Management Architect: Porfirio Cox MD Globulin (S) [Mass/Vol] 2.6 g/dL (calc) Normal 1.9-3.7 [facility] Comment on above: Performed By: #### 7 600, 26425, 89 #### [facility]-[address], [address] [place] [address] Management Architect: Porfirio Cox MD Glucose [Mass/Vol] 100 mg/dL High 65-99 [facility] Comment on above: Result Comment: Fasting reference interval For someone without known diabetes, a glucose value between 100 and 125 mg/dL is consistent with prediabetes and should be confirmed with a follow-up test. Performed By: #### 7 600, 19693, 89 #### [facility]-[address], [address] [place] [address] Management Architect: Porfirio Cox MD Potassium [Moles/Vol] 4.1 mmol/L Normal 3.5-5.3 [facility] Comment on above: Performed By: #### 7 600, 30657, 899 #### [facility]-[address], [address] [place] [address] Management Architect: Porfirio Cox MD Protein [Mass/Vol] 6.9 g/dL Normal 6.1-8.1 [facility] Comment on above: Performed By: #### 7 600, 32093, 899 #### [facility]-[address], [address] [place] [address] Management Architect: Porfirio Cox MD Sodium [Moles/Vol] 140 mmol/L Normal 135-146 [facility] Comment on above: Performed By: #### 7 600, 04769, 899 #### [facility]-[address], [address] [place] [address] Management Architect: Porfirio Cox MD Urea nitrogen [Mass/Vol] 20 mg/dL Normal 7-25 [facility] Comment on above: Performed By: #### 7 600, 92985, 899 #### [facility]-[address], [address] [place] [address] Management Architect: Porfirio Cox MD Urea nitrogen/Creatinin e [Mass ratio] NOT APPLICABLE Normal 6-22 [facility] Comment on above: Performed By: #### 7 600, 42053, 899 #### [facility]-[address], [address] [place] [address] Management Architect: Porfirio Cox MD LIPID PANEL, STANDARD 11-0 Cholesterol [Mass/Vol] 232 mg/dL High <200 [facility] Comment on above: Performed By: #### 7 600, 81553, 899 #### [facility]-[address], [address] [place] [address] Management Architect: Porfirio Cox MD Cholesterol in HDL [Mass/Vol] 56 mg/dL Normal > OR = 50 [facility] Comment on above: Performed By: #### 7 600, 27815, 899 #### [facility] [address] Management Architect: Porfirio Cox MD Cholesterol in LDL [Mass/Vol] 149 mg/dL (calc) High [facility] Comment on above: Result Comment: Refe rence range: <100 Desirable range <100 mg/dL for primary prevention; <70 mg/dL for patients with CHD or diabetic patients with > or = 2 CHD risk factors. LDL-C is now calculated using the Osmel calculation, which is a validated novel method providing better accuracy than the Friedewald equation in the estimation of LDL-C. Orion SS et al. JOHNNY. 2013;310(19): 0701-6837 (http://education.Medikal.com/faq/XCP602) Performed By: #### 7 600, 70504, 899 #### [facility], [address] [place] [address] Management Architect: Porfirio Cox MD Cholesterol.total/ Cholesterol in HDL [Mass ratio] 4.1 (calc) Normal <5.0 [facility] Comment on above: Performed By: #### 7 600, 87759, 899 #### [facility] [address] Management Architect: Porfirio Cox MD NON HDL CHOLESTEROL 176 mg/dL (calc) High <130 [facility] Comment on above: Result Comment: For patients with diabetes plus 1 major ASCVD risk factor, treating to a non-HDL-C goal of <100 mg/dL (LDL-C of <70 mg/dL) is considered a therapeutic option. Performed By: #### 7 600, 17670, 895 #### [facility] [address] Management Architect: Porfirio Cox MD Triglyceride [Mass/Vol] 147 mg/dL Normal <150 [facility] Comment on above: Performed By: #### 7 600, 35558, 899 #### [facility] [address] Management Architect: Porfirio Cox MD TSHon 03-01-2020 TSH Qn 2.35 m[IU]/L Normal 0.40-4.50 [facility] Comment on above: Performed By: #### 7 600, 24404, 893 #### [facility] [address] Management Architect: Porfirio Cox MD Vital Signs Date Time Vital Sign Value Performing Clinician Solis lopez 07-10-2024 05:24-0400 Body height 170.18 cm eSNF PA-C Work Phone: [facility] 07-10-2024 05:24-0400 Body mass index (BMI) [Ratio] 37.4 kg/m2 [employer] PA-C Work Phone: [facility] 07-10-2024 05:24-0400 Body temperature 97.1 [degF] [employer] PA-C Work Phone: [facility] 07-10-2024 05:24-0400 Body weight 108.4 kg eSNF PA-C Work Phone: [facility] 07-10-2024 05:24-0400 Diastolic blood pressure 77 mm[Hg] eSNF PA-C Work Phone: [facility] 07-10-2024 05:24-0400 Heart rate 89 /min [employer] PA-C Work Phone: [facility] 07-10-2024 05:24-0400 Respiratory rate 20 /min eSNF PA-C Work Phone: [facility] 07-10-2024 05:24-0400 SaO2% (BldA) [Mass fraction] 95 % [employer] PA-C Work Phone: [facility] 07-10-2024 05:24-0400 Systolic blood pressure 150 mm[Hg] eSNF PA-C Work Phone: [facility] 04-14-2022 09:00-0500 Body height 170.18 cm PA-C eSNF PA Work Phone: [facility] 04-14-2022 09:00-0500 Body mass index (BMI) [Ratio] 37.4 kg/m2 PA-C [employer] PA Work Phone: [facility] 04-14-2022 09:00-0500 Body temperature 96.5 [degF] PA-C eSNF PA Work Phone: [facility] 04-14-2022 09:00-0500 Body weight 108.4 kg PA-C eSNF PA Work Phone: [facility] 04-14-2022 09:00-0500 Diastolic blood pressure 74 mm[Hg] PA-C eSNF PA Work Phone: [facility] 04-14-2022 09:00-0500 Heart rate 88 /min PA-C eSNF PA Work Phone: [facility] 04-14-2022 09:00-0500 Respiratory rate 20 /min PA-C eSNF PA Work Phone: [facility] 04-14-2022 09:00-0500 SaO2% (BldA) [Mass fraction] 94 % PA-C eSNF PA Work Phone: [facility] 04-14-2022 09:00-0500 Systolic blood pressure 156 mm[Hg] PA-C eSNF PA Work Phone: [facility] 01-18-2022 09:29-0400 Body mass index (BMI) [Ratio] 35.7 kg/m2 Dr. Kwame Colvin Work Phone: [facility] Work Phone: 01-18-2022 09:29-0400 Body weight 106.[address] Kwame Colvin Work Phone: [facility] Work Phone: 01-18-2022 09:29-0400 Diastolic blood pressure 82 mm[Hg] Dr. Kwame Colvin Work Phone: [facility] Work Phone: 01-18-2022 09:29-0400 Heart rate 86 /min Dr. Kwame Colvin Work Phone: [facility] Work Phone: 01-18-2022 09:29-0400 Respiratory rate 16 /min Dr. Kwame Colvin Work Phone: [facility] Work Phone: 01-18-2022 09:29-0400 Systolic blood pressure 149 mm[Hg] Dr. Kwame Colvin Work Phone: [facility] Work Phone: 07-20-2021 08:44-0400 Body height 172.[address] Kwame Colvin Work Phone: [facility] Work Phone: 07-20-2021 08:44-0400 Body mass index (BMI) [Ratio] 35.8 kg/m2 Dr. Kwame Colvin Work Phone: [facility] Work Phone: 07-20-2021 08:44-0400 Body temperature 97.6 [degF] Dr. Kwame Colvin Work Phone: [facility] Work Phone: 07-20-2021 08:44-0400 Body weight 106.[address] Kwame Colvin Work Phone: [facility] Work Phone: 07-20-2021 08:44-0400 Diastolic blood pressure 73 mm[Hg] Dr. Kwame Colvin Work Phone: [facility] Work Phone: 07-20-2021 08:44-0400 Heart rate 78 /min Dr. Kwame Colvin Work Phone: [facility] Work Phone: 07-20-2021 08:44-0400 Respiratory rate 15 /min Dr. Kwame Colvin Work Phone: [facility] Work Phone: 07-20-2021 08:44-0400 SaO2% (BldA) [Mass fraction] 94 % Dr. Kwame Colvin Work Phone: [facility] Work Phone: 07-20-2021 08:44-0400 Systolic blood pressure 184 mm[Hg] Dr. Kwame Colvin Work Phone: [facility] Work Phone: 07-06-2021 09:50-0500 Body mass index (BMI) [Ratio] 35.6 kg/m2 Dr. Kwame Colvin Work Phone: [facility] Work Phone: 07-06-2021 09:50-0500 Body temperature 98.2 [degF] Dr. Kwame Colvin Work Phone: [facility] Work Phone: 07-06-2021 09:50-0500 Body weight 106.[address] Kwame Colvin Work Phone: [facility] Work Phone: 07-06-2021 09:50-0500 Diastolic blood pressure 79 mm[Hg] Dr. Kwame Colvin Work Phone: [facility] Work Phone: 07-06-2021 09:50-0500 Heart rate 97 /min Dr. Kwame Colvin Work Phone: [facility] Work Phone: 07-06-2021 09:50-0500 Respiratory rate 15 /min Dr. Kwame Colvin Work Phone: [facility] Work Phone: 07-06-2021 09:50-0500 SaO2% (BldA) [Mass fraction] 96 % Dr. Kwame Colvin Work Phone: [facility] Work Phone: 07-06-2021 09:50-0500 Systolic blood pressure 147 mm[Hg] Dr. Kwame Colvin Work Phone: [facility] Work Phone: Encounters Encounter Date Encounter Type Care Provider Facility Start: 10-15-2024 ambulatory Gino Valdez NP Facility :[facility] Start: 10-03-2024 End: 10-03-2024 ambulatory [facility] Start: 09-03-2024 End: 09-03-2024 ambulatory Sisi Hedrick PA Facility:[facility] Start: 07-24-2024 End: 07-24-2024 ambulatory [facility] PA-C Work Phone: [facility] Work Phone: Start: 07-24-2024 End: 07-24-2024 Patient encounter procedure LATESHA Hernandez -Pulmonary Services/Neurology Work Phone: Start: 07-24-2024 End: 07-24-2024 ambulatory Sisi Hedrick PA Facility:[facility] Start: 07-10-2024 End: 07-10-2024 Patient encounter procedure LATESHA Hernandez -[facility] Work Phone: Start: 07-10-2024 End: 07-10-2024 ambulatory Sisi Hedrick PA [facility] Start: 03-13-2024 End: 03-13-2024 ambulatory [facility] Start: 03-07-2024 End: 03-07-2024 ambulatory [facility] Start: 12-11-2023 End: 12-11-2023 ambulatory [facility] Start: 12-01-2023 End: 12-01-2023 ambulatory [facility] Start: 11-28-2023 End: 11-28-2023 ambulatory [facility] Start: 11-22-2023 End: 11-22-2023 ambulatory [facility] Start: 11-10-2023 End: 11-10-2023 ambulatory [facility] Start: 10-25-2023 End: 10-25-2023 ambulatory [facility] Start: 06-22-2023 Telephone encounter Pauline Sánchez RN Work Phone: Mammography Comment on above: Results Start: 06-21-2023 ambulatory KWAME JUAN COLVIN Fac ility:[facility] Start: 06-21-2023 End: 06-21-2023 Subsequent hospital visit by physician Procedure [facility] Work Phone: Mammography Comment on above: Abnormal finding on radiological examination of breast [R92.8] Start: 05-18-2023 End: 03-05-2024 Telephone encounter Marin Smith MD Work Phone: General Surgery Comment on above: Appointment Start: 05-18-2023 End: 05-18-2023 ambulatory KWAME COLVIN Facility:[facility] Start: 07-14-2022 Non-patient / Non-visit PA-C K bakari Hedrick PA Work Phone: [facility] Start: 07-14-2022 End: 07-14-2022 ambulatory PA-C eSNF PA Work Phone: [facility] Work Phone: Start: 07-14-2022 End: 07-14-2022 Patient encounter procedure PA-C eSNF PA Work Phone: [facility]-Pulmonary Services/Neurology Start: 06-17-2022 End: 06-22-[address] DAVID MARCANO MD Facility: Start: 04-14-2022 End: 04-14-2022 Patient encounter procedure PA-C eSNF PA Work Phone: [facility]-Pulmonary Medicine [facility] Start: 01-27-2022 Non-patient / Non-visit Dr. Jurgen Colvin Work Phone: [facility] Start: 01-27-2022 End: 01-27-[address] Kwame Colvin Work Phone: [facility] Work Phone: Start: 01-27-2022 End: 01-27-[address] Kwame Colvin Work Phone: [facility]-Cardiovascula r Services Start: 01-18-2022 End: 01-18-[address] Kwame Colvin Work Phone: [facility] Start: 07-20-2021 End: 07-20-[address] Kwame Colvin Work Phone: [facility] Start: 07-15-2021 End: 07-15-[address] Kwame Colvin Work Phone: [facility]-Outpatient Breast Imaging Start: 07-06-2021 End: 07-06-[address] Kwame Colvin Work Phone: [facility] Start: 03-14-[address] Stuart Colvin Work Phone: [facility] Procedures Date Procedure Procedure Detail Performing Clinician Start: 06-21-2023 Bx breast w/device 1 st lesion stereotactic guid Eddie Jessica MD, PhD Work Phone: Start: 06-21-2023 Digital breast tomos ynthesis bilateral Sisi York PA-C Work Phone: Start: 06-21-2023 Us breast uni real t cole with image limited Eddie Jessica MD, PhD Work Phone: Start: 07-15-[address] Kwame Colvin Work Phone: Start: 07-15-[address] Kwame Colvin Work Phone: Plan of Treatment Date Care Activity Detail Author Start: 04-10-2024 End: 04-10-2024 Patient encounter procedure Mammogram Comment on above: Comp- Rt 6 mo f/u bi opsy of calcs, benign follo wup Start: 12-31-2023 Covid-19 Vaccine ( season) Covid-19 Vaccine ( season) [facility] Start: 12-31-2023 Influenza vaccination Influenza Vacc ine (#1) [facility] Start: 05-01-2023 Advance Directive Discussion Advance Directive Discussion [facility] Start: 05-01-2023 Depression Assessment Depression Ass essment [facility] Start: 12-30-2022 Covid-19 Vaccine ( season) Covid-19 Vaccine ( season) [facility] Start: 11-14-2021 Urine microalbumin profile DTaP,Tdap,Td Vaccine (2 - Td or Tdap) [facility] Start: 2021 RSV Vaccine (1 - 1-d ose 75+ series) RSV Vaccine (1 - 1-dose 75+ series) [facility] Start: 03-08-2021 Shingrix Vaccine (3 of 3) Shingrix Vaccine (3 of 3) [facility] Start: 09-14-2011 Screening for osteoporosis Bone Density Screening [facility] Start: 2006 RSV Vaccine (1 - 1-d ose 60+ series) RSV Vaccine (1 - 1-dose 60+ series) [facility] Start: 09-14-1991 Diabetes Screening Diabetes Screenin g [facility] Start: 1964 Anxiety Screening Anxiety Screening [facility] Start: 1964 Depression Screening Depression Scre ening [facility] Start: 1964 Hepatitis C screening Hepatitis C Sc [facility] Exercise tolerance test [facility]GICAL PATHOLOG[facility] Work Phone: Comment on above: Release Upon Travis bowman for 1 Occurrences starting 06/21/2023, 1 completed [facility] Immunizations Immunization Date Immunization Notes Care Provider Shamar menendez 02-15-2023 influenza virus vacc ine, unspecified formulation Marin Smith MD Work Phone: [facility] Payers Date Payer Category Payer Self-pay [id number] 2011 Medicare MEDICARE MEDICAR E A AND B [id number] 2011-Present [phone] [place] [address] Medicare [id number] 2011 Medicare [id number] 2001 Unknown ANTHEM ANTHEM BC BS FEP PPO [id number] 2001-Present [phone] [address] [place] [address] PPO [id number] 2001 Unknown [id number] 1946 Unknown [id number] 1946 Unknown [id number] 1946 Unknown [id number] 1946 Unknown [id number] 1946 Unknown [id number] [id number] 1946 Unknown [id number] [id number] 1946 Unknown [id number] 2..[id number] 1946 Unknown [id number] [id number] 1946 Unknown [id number] [id number] 1946 Unknown [id number] [id number] Unknown [id number] [id number] Unknown [id number] [id number] Unknown [id number] [id number] Unknown [id number] Social History Date Type Detail Facility Start: 01-19-2021 End: 04-14-2022 Tobacco smoking status COIS Unknown if ever smoked [facility] Start: 1945 Sex Assigned At Female [facility] Start: 05-18-2023 End: 05-22-2023 Tobacco smoking status NHIS Ex-smoker [facility] Start: 05-01-1976 End: 05-01-2006 History of tobacco use Current smoker [facility] Start: 05-01-1976 End: 05-01-2006 History of tobacco use Cigarette Smoker [facility] Start: 05-18-2023 Cigarettes smoked current (pack per day) - Reported 2 [facility] Start: 05-18-2023 Tobacco use and exposure Smokeless tobacco non-user [facility] Start: 05-18-2023 Alcohol intake Current drinke r of alcohol (finding) [facility] Start: 05-18-2023 Tobacco use panel [facility] National Score (1-10 0), lower number is lower risk 80 [facility] Start: 12-09-2013 Alcohol Comment occasional glass of wine [facility] Start: 06-05-2023 Gender identity Identifies as female gender (finding) [facility] Start: 06-05-2023 Sexual orientation Heterosexual (fin divya) [facility] Start: 07-29-2024 Sex Female (finding) [facility] Clinical Notes 07-14-2022 to 07-10-2024 Note Date & Type Note Facility 07-10-2024 Evaluation note Diagnosis Onset Date Resolution Cough acute July 10 10:32am Obesity chronic July 10 10:32am Shortness of breath noneactive July 10, 2024 10:32am [facility] Work Phone: [phone]) 364-565003-01-2024 Telephone encounter Note* Telephone Encounter - Marin Smith MD - 06/30/2023 1:15 PM EST Patient does not need to see me if she does not want to She will need a 6-month follow-up mammogram [facility]03-01-2024 Miscellaneous Notes* Telephone Encounter - Marin Smith MD - 06/30/2023 1:15 PM EST Patient does not need to see me if she does not want to She will need a 6-month follow-up mammogram * Telephone Encounter - Judith Saxena - 06/23/2023 3:03 PM EST Patient called stating she had her breast biopsy recommended by Dr. Smith and was given results that everything is okay. No cancer. Patient wondering if she should still come in for post op/follow up appointment with Dr. Smith on06/28/2023. She wanted Dr. 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 Smith patient to have right stereotactic. Orders are in the chart Per protocol email sent to Luis Manuel to have radiologist review and call patient to schedule accordingly Per patient aware of steps needed to be done and will be called to scheduled Patient aware to reach back out to office once procedures are scheduled to set an appointment up with Dr. Smith to go over results. Patient given direct line for anything further Judith Saxena Grading Machine Operator documented in this encounterC[facility] Telephone encounter Note * Telephone Encounter - Judith Saxena - 06/23/2023 3:03 PM EST Patient called stating she had her breast biopsy recommended by Dr. Smith and was given results that everything is okay. No cancer. Patient wondering if she should still come in for post op/follow up appointment with Dr. Smith on06/28/2023. [address] Smith's advise before cancelling Please advise Judith Saxena Grading Machine Operator [facility]02-22-2024 Miscellaneous Notes* Telephone Encounter - Pauline Sánchez RN - 06/22/2023 1:42 PM EST Called patient to notify the breast pathology results were benign per Dr. Lr. Informed patient a 6 month follow up is recommended. Patient verbalized understanding. documented in this encounterC[facility]02-[facility]-2024 NoteHNO ID: [id number] Author: PEDRO SOLANO CT Service: Radiology Author Type: Technologist Type: Progress Notes Filed: 06/21/2023 10:08 Note Text: Radiology Service Progress Note PATIENT NAME: Selvin Rosas DATE OF SERVICE: June 21, 2023 TIME: 10:08 AM PATIENT IDENTITY VERIFICATION COMPLETED USING TWO (2) IDENTIFIERS: Name and Date of confirmed by patient verbally and Name and Date of confirmed by identification band. FALL SCREENING: Has the patient had 2 falls in the last year or 1 fall with injury or currently using an Ambulatory Assistive Device (Walker, Cane, Wheelchair, Crutches, etc.)? No PATIENT GENDER DATA: Female. status: : No status: NO. PATIENT RELEVANT IMPLANT DATA REVIEWED: Not Applicable PATIENT PRESENTS WITH AN IMPLANTABLE OR ATTACHED FURNITURE SALES CONSULTANT: No RADIOLOGY DEPARTMENT: Ultrasound PERIPHERAL IV DATA: Not applicable SIGNED BY: EULALIA Rubalcava June 21, 2023 10:08 AMMer[facility] [id number] History of Present illness Narrative* Pedro Solano CT - 06/21/2023 9:20 AM EST Radiology Service Progress Note PATIENT NAME: Selvin Rosas DATE OF SERVICE: June 21, 2023 TIME: 10:08 AM PATIENT IDENTITY VERIFICATION COMPLETED USING TWO (2) IDENTIFIERS: Name and Date of confirmedby patient verbally and Name and Date of confirmed by identification band. FALL SCREENING: Has the patient had 2 falls in the last year or 1 fall with injury or currently using an Ambulatory Assistive Device (Walker, Cane, Wheelchair, Crutches, etc.)? No PATIENT GENDER DATA: Female. status: : No status: NO. PATIENT RELEVANT IMPLANT DATA REVIEWED: Not Applicable PATIENT PRESENTS WITH AN IMPLANTABLE OR ATTACHED FURNITURE SALES CONSULTANT: No RADIOLOGY DEPARTMENT: Ultrasound PERIPHERAL IV DATA: Not applicable SIGNED BY: EULALIA Rubalcava June 21, 2023 10:08 AM documented in this encounterC[facility]01-22-2024 NoteHNO ID: [id number] Author: EDDIE JESSICA MD, PhD Service: ? Author Type: Fellow Type: Progress Notes Filed: 05/22/2023 09:36 Note Text: Dr. Brock and I reviewed this case for biopsy based on outside imaging. In the left breast, there is a 0.6 cm oval mass in the lower outer quadrant seen on the screening mammogram from 03/17/2023. No prior imaging is available for comparison. Targeted left breast ultrasound is recommended prior to the biopsy noted below. Screening mammogram dated 03/17/2023 is marked. The grouped amorphous calcifications in the right breast in the 2-3:00 axis, middle depth are amenable to stereotactic biopsy. Equipment can be upright or prone, and 2D or 3D. Right mammogram dated 03/29/2023 is marked.[facility]01-18-2024 Telephone encounter Note* Telephone Encounter - Judith Saxena - 05/18/2023 1:[address] Smith patient to have right stereotactic. Orders are in the chart Per protocol email sent to Luis Manuel to have radiologist review and call patient to schedule accordingly Per patient aware of steps needed to be done and will be called to scheduled Patient aware to reach back out to office once procedures are scheduled to set an appointment up with Dr. Smith to go over results. 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 Author Type: Physician Type: Progress Notes Filed: 05/22/2023 12:40 Note Text: HISTORY AND PHYSICAL - BREAST COMPLAINT Selvin Rosas 1945 REFERRING PHYSICIAN: No ref. provider found CHIEF COMPLAINT: Mammographic microcalcification found on diagnostic imaging of breast (primary encounter diagnosis) HPI: The patient is a 77 year old female with a complaint of an abnormal mammogram. The patient had a mammogram without ultrasound on 03/17/23 which demonstrated right breast microcalcifications at the 2 o'clock position: The patient denies a history of breast masses. She does perform a self breast exam routinely. She notes no skin changes. She denies nipple discharge. She notes no axillary masses. She notes no family history of breast problems. She notes no significant breast trauma or breast difficulties in the past. 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 Thyroid condition On synthroid PAST SURGICAL HISTORY Procedure Laterality Date BIOPSY OF LIP 05/01/2012 excision lip lesion BUNIONECTOMY, LAPIDUS-TYPE Bilateral 05/01/2001 CATARACT SURGERY, COMPLEX 05/01/2012 bilateral LAP HYSTERECTOMY FOR UTERUS 250G OR LESS 05/01/1992 LUMPECTOMY/RADIOTHERAPY DIAG MAMM/A10 Right 2016 PILONIDAL CYST/SINUS EXCISION 05/01/1974 SLING OPER STRES INCONTINENCE 05/01/1999 Current Outpatient Medications Medication Sig Dispense Refill losartan (COZAAR) 50 mg tablet Take 50 mg by mouth once daily. pantoprazole DR (PROTONIX) 40 mg tablet Take 40 mg by mouth once daily. tiotropium bromide (SPIRIVA RESPIMAT) 2.5 mcg/actuation inhaler Inhale 2 Puffs as instructed once daily. FLUoxetine (PROZAC) 20 mg capsule Take 40 mg by mouth once daily. levothyroxine (SYNTHROID) 50 mcg tablet Take 50 mcg by mouth daily before breakfast. melatonin 10 mg tab Take 1 tablet by mouth at bedtime as needed. diphenhydrAMINE (BENADRYL ALLERGY) 25 mg tablet Take 25 mg by mouth once daily. FLUoxetine (PROZAC) 10 mg capsule Take 10 mg by mouth once daily. (Patient not taking: Reported on 05/18/2023) CALCIUM CARBONATE (CALCIUM 500 ORAL) Take 1 tablet by mouth twice daily. (Patient not taking: Reported on 05/18/2023) omeprazole (PRILOSEC) 20 mg capsule Take 20 mg by mouth once daily. (Patient not taking: Reported on 05/18/2023) SUMAtriptan (IMITREX) 50 mg tablet Take 50 mg by mouth as needed. (Patient not taking: Reported on 05/18/2023) No current facility-administered medications for this visit. ALLERGIES: Penicillins and Sulfa (Sulfonamide Antibiotics) PERSONAL HISTORY: Social History Tobacco Use Smoking status: Former Packs/day: 2.00 Years: 30.00 Additional pack years: 0.00 Total pack years: 60.00 Types: Cigarettes Quit date: 05/01/2006 Years since quittin.0 Smokeless tobacco: Never Vaping Use Vaping Use: Never used Substance Use Topics Alcohol use: Yes Alcohol/week: 3.0 standard drinks of alcohol Types: 3 Glasses of Wine (5oz) per week Comment: Occasional glass of wine Drug use: No FAMILY HISTORY: FAMILY HISTORY Problem Relation Age of Onset Cancer Father 60 Cancer unkown primary in bone marrow Hypertension Father Alzheimer's Disease Mother Cancer Brother 71 ALL REVIEW OF SYMPTOMS: The review of systems data was entered by the nurse and reviewed by oh Nursing Notes: Samreen Colvin LPN 05/18/2023 1:22 PM Signed REVIEW OF SYSTEMS: General: The patient NOTES fatigue, denies weight loss, denies weight gain, NOTES feeling hot, and denies feelings of cold. Eyes: The patient denies glaucoma, denies eye injury/surgery, wears glasses or contacts. Ear/Nose/Throat: The patient NOTES allergies, denies hayfever, denies ear infections, and denies bloody noses. Cardiovascular: The patient denies chest pain, denies heart disease, NOTES high blood pressure,denies cardiac stent, denies prior heart attack, denies irregular heart beat, denies high cholesterol, denies poor circulation, denies heart failure, other cardiac issues, denies claudication, denies cold feet, denies peripheral arterial stent. Respiratory: The patient denies tuberculosis, denies pneumonia, NOTES frequent cough, denies pulmonary embolism, NOTES shortness of breath, and denies coughing up blood, NOTES copd Gastrointestinal: The patient denies difficulty swallowing, NOTES acid reflux, NOTES ulcers, denies vomiting, denies jaundice/hepatitis, denies gallbladder problems, denies black or tarry stools, denies hemorrhoids, denies bleeding from rectum, denies diverticulitis, denies constipation, denies diarrhea, denies loss of stool control, and denies (more content not included)...[facility]03-16-2023 Procedure noteWMarietta Osteopathic ClinicEvaluation note* Diagnosis Onset Date Resolution Status Left breast lump acute History of right breast cancer chronic Left breast lump acute History of right breast cancer chronic [facility] Work Phone: Evaluation note* Diagnosis Onset Date Resolution Status SÁNCHEZ (dyspnea on exertion) ac [place] Essential hypertension chron ic Paroxysmal supraventricular tachycardia chronic [facility] Work Phone: Evaluation note* Diagnosis Onset Date Resolution Status Obesity chronic Shortness of breath noneacti ve [facility] Work Phone: Evaluation note* Diagnosis Mass of upper outer quadrant of right breast documented in this encounter [facility] for referral (narrative)No reason for referral information availableNorwalk Memorial Hospital Work Phone: Reason for visit Narrative* Diagnostic Procedure Only (Routine) - Closed Specialty Diagnoses / Procedures Referred By Contac t Referred To Contact [facility] Diagnoses Abnormal finding on radiological examination of breast Procedures SHAKIRA STEREO BX BREAST RIGHT BX BREAST W/DEVICE 1ST LESION STEREOTACTIC GUID Eddie Jessica MD, PhD [facility] [place] [address] [facility] [address] [place] [phone] Referral ID Status Reason Start Date Expiration Date V isits Requested Visits Authorized [id number] Closed Auto-Generate d Referral 05/22/2023 06/20/2024 1 1 [facility] for visit Narrative* Diagnostic Procedure Only (Routine) - Closed Specialty Diagnoses / Procedures Referred By Contac t Referred To Contact [facility] Diagnoses Abnormal finding on radiological examination of breast Procedures US BREAST LTD LEFT US BREAST UNI REAL TIME WITH IMAGE LIMITED Eddie Jessica MD, PhD [address] [place] [address] [facility] [address] [place] [address] Referral ID Status Reason Start Date Expiration Date V isits Requested Visits Authorized [id number] Closed Auto-Generate d Referral 05/22/2023 06/20/2024 1 1 [facility] Summary Purpose Family History No Family History Records Found Relationship Condition Age at Onset Recorded Date/T cole father Malignant neoplasm Unknown Osteoarthritis Unknown mother Malignant neoplasm of skin Unknown grandmother Malignant neoplasm of breast Unknown Malignant neoplasm of cervix Unknown Advance Directives No Advanced Directives Records Found Advance Directive Response Recorded Date/ Time Advance Directives No June 11:39am Living Will No August 02, 2017 10:53am Power of Turbo Generator Oiler No August 02 8 10:53am Advance Directive Response Recorded Date/ Time Advance Directives No December 11:32am Living Will No January 28, 2022 11:32am Power of Turbo Generator Oiler No December 11:32am Advance Directive Response Recorded Date/ Time Advance Directives No December 11:32am Chief Complaint and Reason for Visit Chief Complaint ACUTE - NO LABS - L BR LUMP MASS LEFT BREAST 2WKS NO LABS REVIEW MAMMO/US Reason for Visit Left breast lump History of right breast cancer Left breast lump History of right breast cancer Chief Complaint 1 Y FU DYSPNEA Reason for Visit SÁNCHEZ (dyspnea on exer tion) Essential hypertension Paroxysmal supraventricular tachycardia Chief Complaint Shortness of breath Other forms of dyspnea Other forms of dyspnea Reason for Visit Obesity Shortness of breath Chief Complaint Admit Date Over due for f/u July 10, 2024 10: 32am R05.9 - Cough, unspecified July 24, 025 9:01am Reason for Visit Admit Date Cough July 10, 2024 10: 32am Obesity July 10, 2024 10: 32am Shortness of breath July 10, 2024 10: 32am Additional Source Comments INFORMATION SOURCE (unrecogn ized section and content) DATE CREATED AUTHOR 02/29/2020 [facility] DATE CREATED AUTHOR AUTHOR'S ORGANIZ ATION 03/20/2023 [facility] ([place]) DATE CREATED AUTHOR AUTHOR'S ORGANIZ ATION 06/28/2023 [facility] DATE CREATED AUTHOR AUTHOR'S ORGANIZ ATION 03/07/2024 [facility] DATE CREATED AUTHOR AUTHOR'S ORGANIZ ATION 10/04/2024 [facility] DATE CREATED AUTHOR AUTHOR'S ORGANIZ ATION 10/08/2024 [facility] Goals (unrecognized section and content) Goals may be documented in a n alternate sectionGoals may be documented in an alternate sectionGoals may be documented in an alternate sectionGoals may be documented in an alternate section Care Teams (unrecognized sec tion and content) Team Status: Active Member Role Status Dates Dr. Kwame Colvin MD Family Provider Active Sisipauline SOOD PA-C Primary Care Provider Active Team Status: Inactive Member Role Status Dates [facility] INDIGO PAJebC Primary Care Provider, Referri ng Provider Active Dr. George Fraga MD Attending Provider Active Team Status: Active Member Role Status Dates [facility] PARocco Primary Care Provider Active Dr. George Fraga MD Attending Provider , Referring Provider, Other Provider Active Team Status: Inactive Member Role Status Dates [facility] IN[facility]O PA-C Primary Care Provider Active Dr. George Fraga MD Attending Provider, Referring Pr ovider Active Leg Breaker Relationship Specialty Start Date End Date Kwame Colvin MD PCP - General Family Medicine 12/09/13 Zahra Briones MD [address] [place], [place] [id number] Physician Radiation Oncology 08/04/15 Leg Breaker Relationship Specialty Start Date End Date Kwame Colvin MD PCP - General Family Medicine 12/09/13 Zahra Briones MD [address] [place], [place] [id number] Physician Radiation Oncology 08/04/15 Leg Breaker Relationship Specialty Start Date End Date Kwame Colvin MD PCP - General Family Medicine 12/09/13 Zahra Briones MD [address] [place], [place] [id number] Physician Radiation Oncology 08/04/15 [employer] Relationship Specialty Start Date End Date Kwame Colvin MD PCP - General Family Medicine 12/09/13 Zahra Briones MD [address] [place], [place] [id number] Physician Radiation Oncology 08/04/15 Team Status: Active Member Role Status Dates Sisi SOOD PA-C Primary Care Provider Active Team Status: Inactive Member Role Status Dates Sisi SOOD PA-C Primary Care Provider Active Start: July 10, 2024 End: July 10, 2024 Sisi SOOD PA-C Referring Provider Active Start: July 10, 2024 End: July 10, 2024 BRIANNA Bales Attending Provider Active Start: July 10, 2024 End: July 10, 2024 Team Status: Inactive Member Role Status Dates Sisi SOOD PA-C Primary Care Provider Active Start: July 24, 2024 End: July 24, 2024 BRIANNA Bales Attending Provider Active Start: July 24, 2024 End: July 24, 2024 BRIANNA Bales Referring Provider Active Start: July 24, 2024 End: July 24, 2024 Source Comments (unrecognize d section and content) In the event this informatio n is protected by the Federal Confidentiality of Alcohol and Drug Abuse Patient Records regulations: The Federal rules restrict any use of the information to criminally investigate or prosecute any alcohol or drug abuse patient.[facility] the event this information is protected by the Federal Confidentiality of Alcohol and Drug Abuse Patient Records regulations: The Federal rules restrict any use of the information to criminally investigate or prosecute any alcohol or drug abuse patient.[facility] the event this information is protected by the Federal Confidentiality of Alcohol and Drug Abuse Patient Records regulations: The Federal rules restrict any use of the information to criminally investigate or prosecute any alcohol or drug abuse patient.[facility] the event this information is protected by the Federal Confidentiality of Alcohol and Drug Abuse Patient Records regulations: The Federal rules restrict any use of the information to criminally investigate or prosecute any alcohol or drug abuse patient.[facility] Inactive Administered Medications - up to 3 most recent administrations Administered Medications (un recognized section and content) Medication Order MAR Action Action Date Dose Rate Site lidocaine (PF) 10 mg/mL (1 %) injection (XYLOCAINE) SUBCUTANEOUS, X (OR/PROCEDURE) PRN, Starting on Mon06/21/23 at 1041, Until Mon06/21/23 at 1041, Intraprocedure Given 06/21/2023 10:41 AM EST 20 mL Breast, Right Reason for Visit (unrecogniz ed section and content) Reason Comments Results Reason Comments Appointment FOR RECORDS PERTAINING TO PATIENTS WHO ARE OR HAVE BEEN ENROLLED IN A CHEMICAL DEPENDENCY/SUBSTANCEABUSE PROGRAM, SOME INFORMATION MAY BE OMITTED. This clinical summary was aggregated from multiple sources. Caution should be exercised in using it in the provision of clinical care. This summary normalizes information from multiple sources, and as a consequence, information in this document may materially change the coding, format and clinical context of patient data. In addition, data may be omitted in some cases. CLINICAL DECISIONS SHOULD BE BASED ON THE PRIMARY CLINICAL RECORDS. [facility]. provides no warranty or guarantee of the accuracy or completeness of information in this document.
--- NOTE | 2024-10-15 18:37 | STRESSREP ---
Stress Test Report Pharmacologic myocardial perfusion stress test. 79-year-old lady with a history of dyspnea on exertion Resting EKG demonstrates sinus rhythm with a rate of 83 bpm. Resting blood pressure is 128/74 mmHg. 0.4 mg of regadenoson was infused per usual protocol followed by rapid intravenous saline flush injection. Continuous EKG monitoring was performed. The maximum heart rate was 96 bpm which was 67% of max impacted heart rate the maximum workload was 1 metabolic equivalent. At rest there were no ST or T wave changes noted to suggest ischemia and at peak infusion nonspecific ST changes were noted which did not meet the criteria for ischemia. No clinical angina is noted. The final blood pressure was 110/60 mmHg. Myocardial perfusion protocol. 14.4 mCi of technetium 99m sestamibi was injected at rest. 0.4 mg of regadenoson was infused per usual protocol. At peak infusion 44 point mCi of technetium 99m sestamibi was injected stress images were obtained stress and rest images were reconstructed and compared in the short axis vertical long and horizontal long axis. Gated images were also obtained. Perfusion SPECT analysis: Review of the stress images demonstrate normal uptake of tracer noted in all areas of the myocardium. The resting images similar demonstrated normal uptake of tracer noted in all areas of the myocardium. No areas of reversibility are noted to suggest ischemia and no previous infarct is noted. Gated SPECT analysis: The gated ejection fraction is 75%. Conclusion: Normal pharmacologic myocardial perfusion stress test. Preserved ejection fraction.
== END | disposition home or self-care (01) ==
LOC: CVS 06:43
PROVIDERS: PCP Family Medicine; Referring Provider Nurse Practitioner Family; Visit Provider Nurse Practitioner Family
DX: R06.09 Other forms of dyspnea (principal); E66.812 Obesity, class 2; E66.09 Other obesity due to excess calories; Z68.37 Body mass index [BMI] 37.0-37.9, adult; Z85.3 Personal history of malignant neoplasm of breast; I47.10 Supraventricular tachycardia, unspecified; I10 Essential (primary) hypertension
CPT/HCPCS: 78452; 93017; 93306; A9500; A4216; J2785

== ENCOUNTER 2025-01-16 06:46 | Day surgery (SDC) | payer MEDICARE, BC, SELFPAY ==
--- NOTE | 2024-12-31 09:10 | RAD_ITS ---
PROCEDURE: CHEST PA AND LATERAL 12/31/2024 REASON FOR EXAM: DYSONEA ON EXERTION TECHNIQUE: Procedure Code: RADCXR Modality: DX Procedure: CHEST PA AND LATERAL COMPARISON: None FINDINGS: Hardware: None Heart: Normal size. Mediastinum: Tortuous aorta. Lungs: Clear. No pneumothorax or pleural effusion. Bones: The bones are unremarkable. RAD/Chest PA and Lateral IMPRESSION: No acute abnormality Reading Location: [id number]
[2024-12-31 09:28] LABS: Hematocrit 37.0 % (37-47); Hemoglobin 11.5 g/dL (12.0-15.0); Immature Granulocytes Count 0.060 X10^3/uL (0.0-0.0); Mean Corp Hgb Conc 31.1 g/dL (32-36); Mean Corpuscular Volume 83.1 fL (81-99); Mean Platelet Vol. 12.2 fl (6.2-12.0); NRBC Flagged by Analyzer 0 % (0-5); Platelet Count 244 K/mm3 (150-450); RBC Distribution Width CV 13.6 % (11.6-14.6); RBC Distribution Width SD 41.1 fl (35.1-43.9); Red Blood Count 4.45 M/mm3 (4.2-5.4); White Blood Count 8.6 K/mm3 (4.4-11.0)
[2024-12-31 10:28] LABS: Anion Gap 12 (5-15); BUN 24 mg/dL (4-19); BUN/Creat Ratio 34.0 RATIO (10-20); Calcium,Total 9.1 mg/dL (7.6-11.0); Carbon Dioxide 24.1 mmol/L (21.0-32.0); Chloride 106 mmol/L (98-108); Glucose 123 mg/dL (70-99); Potassium 4.2 mmol/L (3.3-5.1)
[2025-01-15 08:26] VITALS: BMI 37.4
--- OUTSIDE RECORDS SUMMARY | 2025-01-16 06:50 | XMS RPT_ITS | CCD ---
Author Organization [facility] Care Team Providers Care Control Specialist Name Role Phone Dr. Kwame Colvin Primary Care Provider Dr. Kwame Colvin Referring Provider Dr. Paddy Tijerina Attending Provider Dr. Kwame Colvin Referring Provider Mark SOOD, PA Suki Hawkins Attending Provider Molena PA, PA-C Sisi Primary Care Provider Dr. Eloy Villatoro Attending Provider Jaylen PA, PA-C Sisi Primary Care Provider Jaylen PA, PA-C Sisi Referring Provider Dr. George Fraga Attending Provider Dr. George Fraga Referring Provider Dr. George Fraga Other Provider DR DAVID MARCANO MD Attending Unavailable JAYLEN PA-C, SISI Primary Care Unavailable Kwame Colvin MD Primary Care Provider Zahra Briones MD Unavailable KWAME COLVIN Primary Care Unavailable PROVIDER, UNKNOWN Referring Unavailable KWAME COLVIN Primary Care Unavailable PROVIDER, UNKNOWN Referring Unavailable Kwame Colvin MD Primary Care Provider [phone] KWAME COLVIN Primary Care Unavailable Marin Smith Attending Unavailable Molena PA-C, Sisi Primary Care Provider Jaylen PA-C, Sisi Referring Provider La Hutton Attending Provider Mary CHARLTON-CLa Referring Provider HILLS, [...] UNKNOWN Consulting Unavailable HILLS, SISI Consulting Unavailable HILLS, SISI Attending Unavailable HILLS, SISI Admitting Unavailable HILLS, SISI Primary Care Unavailable PROVIDER, UNKNOWN Consulting Unavailable HILLS, SISI Attending Unavailable HILLS, SISI Admitting Unavailable HILLS, SISI Primary Care Unavailable HILLS, SISI Consulting Unavailable PROVIDER, UNKNOWN Consulting Unavailable HILLS, SISI Attending Unavailable HILLS, SISI Admitting Unavailable HILLS, SISI Primary Care Unavailable HILLS, SISI Consulting Unavailable PROVIDER, UNKNOWN Consulting Unavailable HILLS, SISI Consulting Unavailable HILLS, SISI Attending Unavailable HILLS, SISI Admitting Unavailable HILLS, SISI Primary Care Unavailable PROVIDER, UNKNOWN Consulting Unavailable HILLS, SISI Consulting Unavailable MARCANO, DAVID Primary Care Unavailable MARCANO, DAVID Attending Unavailable MARCANO, DAVID Admitting Unavailable PROVIDER, UNKNOWN Consulting Unavailable HILLS, SISI Consulting Unavailable MARCANO, DAVID Primary Care Unavailable MARCANO, DAVID Attending Unavailable MARCANO, DAVID Admitting Unavailable PROVIDER, UNKNOWN Consulting Unavailable Dr. Yannick Colvin DO Attending Provider José Miguel CHARLTON-Gino Koenig Attending Provider [phone] José Miguel CHARLTON-Gino Koenig Referring Provider [phone] Irving ROJAS, Dr. Lyons Attending Provider Molena PA-C, Sisi Primary Care Provider Molena PA-C, Sisi Referring Provider La Hutton Attending Provider Gino Valdez NP Attending Unavailable Gino Valdez NP Referring Unavailable Molena PA, Sisi Primary Care Unavailable La Hernandez Referring Unavailable Molena PA, Sisi Primary Care Unavailable La Hernandez Attending Unavailable Eloy Villatoro Attending Unavailable Irving, [place] Referring Unavailable [facility] [place] Primary Care Unavailable IrvingEloy Attending Unavailable [facility], Sisi Referring Unavailable [facility] [place] Primary Care Unavailable Yannick Colvin Attending Unavailable [facility] [place] Primary Care Unavailable La Hernandez Referring Unavailable Irving, Eloy Attending Unavailable [facility], Sisi Primary Care Unavailable [facility], Sisi Primary Care Unavailable [facility], Sisi Referring Unavailable La Hernandez Attending Unavailable [facility] [place] Primary Care Unavailable [facility], Sisi Referring Unavailable La Hernandez Attending Unavailable [facility], S[place] Referring Unavailable [facility] [place] Primary Care Unavailable La Hernandez Attending Unavailable Allergies Allergy Classification Reported Allergen(s) Allergy Type Date of Onset Reaction(s) Facility (7 sources) hydroCHLOROthiazide Drug Allergy 07-21-19 Makes hot flashes worse, also sulfa in it. [facility] (8 sources) Latex; Translations: [LATEX] Propensity to adverse reactions 07-21-19 22 Rash [facility] (14 sources) Penicillins; Translations: [PENICILLINS] Propensity to adverse reactions 12-10-19 14 [facility] (14 sources) Sulfonamides (Antibiotic); Translations: [SULFA (SULFONAMIDE ANTIBIOTICS)] Propensity to adverse reactions 12-10-19 14 [facility] (1 source) Penicillins Drug allergy (disorder) [facility] (1 source) Sulfonamides (Antibiotic) Drug allergy (disorder) [facility] (1 source) hydroCHLOROthiazide Drug Allergy 12-14-19 [facility] (1 source) Latex Drug allergy (disorder) 12-14-19 [facility] Medications Current Medications Medication Drug [...] twice daily. FLUoxetine 40 mg oral capsule (20 sources) Serotonin Reuptake Inhibitor Start: 01-18-2022 take [...] 06, 2021 11:51am take 1 capsule by [facility] once daily FLUoxetine (PROZAC) 10 mg capsule Take 10 mg by mouth once daily. Active Comment on above: Take 10 mg by mouth once daily. Take 40 mg by mouth once daily. Msojehtwexz-Wqatvytzl-Bddg nter (1 source) Anticholinergic, Corticosteroid, beta2-Adrenergic Agonist Start: 12-13-2024 Uxpzkhllfaj-Nqtwckfzs-Gdt anter (Trelegy Ellipta) 100-62.5-25 mcg blister with device Active 1 NMA INHALATION daily December 13, 2024 12:00am levothyroxine sodium 0.05 mg oral capsule (20 sources) l-Thyroxine Start: 05-22-2023 Levothyroxine 50 mcg [...] mouth daily before breakfast. melatonin 10 mg oral capsule (17 sources) Start: 02-03-2020 End: 01-18-2022 take 1 [...] by maricruz th at bedtime as needed. omeprazole 20 mg delayed release oral capsule (4 sources) Proton Pump Inhibitor take 1 capsule by mouth once daily omeprazole (PRILOSEC) 20 mg capsule Take 20 mg by mouth once daily. Active Comment on above: Take 20 mg by mouth once daily. pantoprazole 40 mg delayed release oral tablet (11 sources) Proton Pump Inhibitor Start: take 1 [...] Sig (Original) amLODIPine 2.5 mg oral tablet (6 sources) Dihydropyridine Calcium Channel Freddie Start: 01-28-2022 End: 04-14-2022 take 1 tablet by mouth once daily Amlodipine 2.5 mg tablet Discontinued 2.5 mg PO DAILY 30 03January 28, 2022 12:00am April 14, 2022 10:03am aspirin 325 mg oral tablet (18 sources) Platelet Aggregation Inhibitor, Nonsteroidal Anti-inflammatory Drug [...] March 15, 2019 10:13am Black Cohosh Extract (7 sources) Start: 02-03-2020 End: 04-02-2020 take 1 [...] 2020 10:27am ciprofloxacin 500 mg oral tablet (20 sources) Quinolone Antimicrobial Start: 02-10-2020 End: 04-02-2020 take 1 tablet by mouth twice daily Ciprofloxacin Hcl 500 MG tablet Discontinued 500 mg PO TWICE A DAY 6 0 February 10, 2020 10:41am February 10, 2020 10:42am diphenhydrAMINE hydrochloride 25 mg oral capsule (11 sources) Histamine-1 Receptor Antagonist Start: 06-24-2015 End: [...] once daily. hydroCHLOROthiazide 25 mg oral tablet (7 sources) Thiazide Diuretic Start: 2019 End: 2019 take 1 tablet by mouth once daily Hydrochlorothiazide 25 mg tablet Discontinued 25 mg PO DAILY 90 3 April 02, 2020 1:00am April 14, 2020 2:30pm lisinopril 40 mg oral tablet (20 sources) Angiotensin Converting Enzyme Inhibitor Start: 2019 End: 2022 take 1 tablet by mouth once daily Lisinopril 40 mg tablet Discontinued 40 mg PO DAILY 90 3 February 14, 2022 12:09pm February 10, 2023 8:45am Start: 03-15-2019 End: 04-14-2020 take 1 tablet by mouth once daily Lisinopril 20 mg tablet Discontinued 20 mg PO DAILY 90 3 May 14, 2019 2:21pm April 14, 2020 2:31pm losartan potassium 50 mg oral tablet (15 sources) Angiotensin 2 Receptor Freddie Start: 02-10-2023 End: 09-18-2024 take 1 tablet by mouth once daily Losartan 50 mg tablet Discontinued 50 mg PO DAILY 90 3 September 27, 2023 9:50am September 18, 2024 7:55am Comment on above: Take 50 mg by mouth once daily. nitrofurantoin, macrocrystals 25 mg / nitrofurantoin, monohydrate 75 mg oral capsule (4 sources) Nitrofuran Antibacterial Start: 11-10-2022 End: 11-17-2022 take 1 capsule by mouth every twelve hours at mealtime Nitrofurantoin Monohyd/M-Cryst (Macrobid) 100 mg capsule Discontinued 100 mg PO Q12H 14 7 0 November 10, 2022 12:00am November 16, 2022 12:00am November 17, 2022 12:04am must administer with a meal/food Tiotropium-Olodater ol (16 sources) Anticholinergic, beta2-Adrenergic Agonist Start: 07-10-2024 End: 12-13-2024 Tiotropium-Olodater ol (Stiolto Respimat) 2.5-2.5 mcg/actuation mist Discontinued 2 NMA INHALATION DAILY 3 3 July 10, 2024 11:13am December 13, 2024 9:16am Start: 07-10-2024 Tiotropium-Olo daterol (Stiolto Respimat) 2.5-2.5 mcg/actuation mist Active 2 NMA INHALATION DAILY 3 3 July 10, 2024 11:13am Start: 07-10-2024 Tiotropium-Olo daterol (Stiolto Respimat) 2.5-2.5 mcg/actuation mist Active 2 NMA INHALATION DAILY 3 July 10, 2024 11:13am Start: 05-22-2023 End: 07-10-2024 Tiotropium-Olodaterol (Stiol to Respimat) 2.5-2.5 mcg/actuation mist Discontinued 2 NMA INHALATION DAILY 3 May 22, 2023 11:51am July 10, 2024 11:13am Start: 05-22-2023 End: 07-10-2024 Tiotropium-Olodaterol (Stiol to Respimat) 2.5-2.5 mcg/actuation mist Discontinued 2 NMA INHALATION DAILY 3 May 22, 2023 11:51am July 10, 2024 11:13am Start: 12-29-2022 End: 05-22-2023 Tiotropium-Olodaterol (Stiol to Respimat) 2.5-2.5 mcg/actuation mist Discontinued 2 NMA INHALATION DAILY 4 December 29, 2022 8:43am May 22, 2023 11:55am Start: 12-29-2022 End: 05-22-2023 Tiotropium-Olodaterol (Stiol to Respimat) 2.5-2.5 mcg/actuation mist Discontinued 2 NMA INHALATION DAILY 4 December 29, 2022 8:43am May 22, 2023 11:55am Start: 08-16-2022 End: 12-29-2022 Tiotropium-Olodaterol (Stiol to Respimat) 2.5-2.5 mcg/actuation mist Discontinued 2 NMA INHALATION DAILY 4 3 August 16, 2022 12:00am December 29, 2022 8:44am Start: 08-16-2022 End: 12-29-2022 Tiotropium-Olodaterol (Stiol to Respimat) 2.5-2.5 mcg/actuation mist Discontinued 2 NMA INHALATION DAILY August 16, 2022 12:00am December 29, 2022 8:44am predniSONE 10 mg oral tablet (3 sources) Start: 09-03-2024 End: 12-13-2024 take 3 tablets by mouth once daily, then take 2 tablets by mouth once daily Prednisone 10 mg tablet Discontinued 10 mg PO As Directed 13 0 September 03, 2024 12:00am December 13, 2024 9:16am Cough Chronic cough Take 3 tablets daily for 3 days, then 2 tablets daily for 2 days. SUMAtriptan 25 mg oral tablet (17 sources) Serotonin-1b and Serotonin-1d Receptor Agonist Start: [...] Onset: 06-22-2015 06-22-2015 Chronic Cancer of breast (9 sources) History of malignant neoplasm of breast; Translations: [Personal history of malignant neoplasm of breast] Episodic Comment on above: No evidence of disea se clinically. Cardiac dysrhythmias (9 sources) Paroxysmal supraventricular tachycardia; Translations: [Supraventricular tachycardia] Onset: 12-13-2024 Chronic Disorders of lipid metabolism (10 sources) Hyperlipidemia; Translations: [Hyperlipidemia, unspecified] Onset: 03-07-2024 03-14-2019 Chronic Esophageal disorders (1 source) Gastro-esophageal reflux disease without esophagitis; Translations: [Gastro-esophageal reflux disease without esophagitis] Onset: 11-10-2023 Chronic Essential hypertension (8 sources) Essential hypertension; Translations: [Essential (primary) hypertension] Onset: 12-13-2024 Chronic Gastroduodenal ulcer (except hemorrhage) (7 sources) Gastric ulcer; Translations: [Gastric ulcer, unspecified as acute or chronic, without hemorrhage or perforation] 01-04-2021 Chronic Genitourinary symptoms and ill-defined conditions (5 sources) Urinary symptoms ; Translations: [Unspecified symptoms and signs involving the genitourinary system] Onset: 11-28-2023 11-10-2022 Episodic Malaise and fatigue (1 source) Chronic fatigue, unspecified; Translations: [Chronic fatigue, unspecified] Onset: 12-13-2024 Chronic Malaise and fatigue (4 sources) Fatigue; Translations: [Other fatigue] 02-10-2023 Episodic Nonmalignant breast conditions (19 sources) Cyst of breast; Translations: [Solitary cyst of left breast] Onset: 05-18-2023 Episodic Comment on above: Clinically stable. US on 07/15/2021 show s cystic lesion. Nonspecific chest pain (4 sources) Chest pain; Translations: [Chest pain, unspecified] 09-27-2023 Episodic Other liver diseases (1 source) Fatty (change of) liver, not elsewhere classified; Translations: [Fatty (change of) liver, not elsewhere classified] Onset: 11-22-2023 Chronic Other lower respiratory disease (6 sources) Dyspnea on exertion; Translations: [Other forms of dyspnea] 01-18-2022 Episodic Other lower respiratory disease (3 sources) Other forms of dyspnea; Translations: [Other respiratory abnormalities] Onset: 12-13-2024 Episodic Other lower respiratory disease (1 source) Shortness of breath; Translations: [Shortness of breath] 04-14-2022 Episodic Other lower respiratory disease (11 sources) Cough; Translations: [Cough] 07-10-2024 Episodic Other lower respiratory disease (7 sources) Dyspnea; Translations: [Shortness of breath] 07-10-2024 Episodic Other nutritional; endocrine; and metabolic disorders (13 sources) Obesity; Translations: [Obesity, unspecified] 12-06-2021 Chronic Other nutritional; endocrine; and metabolic disorders (1 source) Obesity, unspecified; Translations: [Obesity, unspecified] 04-14-2022 Chronic Residual codes; unclassified (7 sources) Flushing; Translations: [Flushing] 12-06-2021 Episodic Thyroid disorders (1 source) Hypothyroidism, unspecified; Translations: [Hypothyroidism, unspecified] Onset: 03-13-2024 Chronic Unclassified (1 source) Cough, unspecified; Translations: [Cough, unspecified] Onset: 10-17-2024 Urinary tract infections (7 sources) Urinary tract infectious disease; Translations: [Urinary [...] specified diseases of gallbladder] Onset: 12-01-2023 Episodic Other aftercare (1 source) Other intermediate accountant (current) drug therapy; Translations: [Other jail (current) drug therapy] Onset: 03-07-2024 Episodic Other diseases of kidney and ureters (1 source) Disorder of kidney and ureter, unspecified; Translations: [Disorder of kidney and ureter, unspecified] Onset: 11-22-2023 Episodic Other lower respiratory disease (1 source) Chronic cough; Translations: [Chronic cough] Onset: 09-03-2024 Episodic Results Test Name Value Interpretation Reference Range Facility Basic Metabolic Profile (BMP )on 12-31-2024 BUN/CRE 34.0 RATIO High 10-20 [facility] Comment on above: Performed By: #### L 100.0100, L500.2500 #### [facility] [address] [place], [address] Calcium [Mass/Vol] 9.1 mg/dL Normal 7.6-11.0 [facility] Comment on above: Performed By: #### L 100.0100, L500.2500 #### [facility] [address] [place], [address] Chloride [Moles/Vol] 106 mmol/L Normal 98-108 [facility] Comment on above: Performed By: #### L 100.0100, L500.2500 #### [facility] [address] [place], [address] CO2 [Moles/Vol] 24.1 mmol/L Normal 21.0-32.0 [facility] Comment on above: Performed By: #### L 100.0100, L500.2500 #### [facility] [address] [place], [address] Creatinine [Mass/Vol] 0.70 mg/dL Normal 0.70-1.20 [facility] Comment on above: Performed By: #### L 100.0100, L500.2500 #### [facility] [address] [place], [address] GAP 12 Normal 5-15 [facility] Comment on above: Performed By: #### L 100.0100, L500.2500 #### [facility] [address] [place], [address] GFR/1.73 sq M.predicted among non-blacks MDRD (S/P/Bld) [Vol rate/Area] 88 mL/min/{1.73_m2} Normal >60 [facility] Comment on above: Result Comment: mL/m in/1.73m2 CKD-EPI Creatinine Equation (2020) Performed By: #### L 100.0100, L500.2500 #### [facility] [address] [place], [address] Glucose [Mass/Vol] 123 mg/dL High 70-99 [facility] Comment on above: Performed By: #### L 100.0100, L500.2500 #### [facility] [address] [place], [address] Potassium [Moles/Vol] 4.2 mmol/L Normal 3.3-5.1 [facility] Comment on above: Result Comment: Hemo lysis present, Results??could be affected. ?? Performed By: #### L 100.0100, L500.2500 #### [facility] [address] [place], [address] Sodium [Moles/Vol] 142 mmol/L Normal 133-145 [facility] Comment on above: Performed By: #### L 100.0100, L500.2500 #### [facility] [address] [place], [address] Urea nitrogen [Mass/Vol] 24 mg/dL High 4-19 [facility] Comment on above: Performed By: #### L 100.0100, L500.2500 #### [facility] [address] [place], [address] CBC W/Diff, Automatedon 09-0 2-2024 Absolute Lymph 1.04 X10 3/uL Normal 0.83-4.51 [facility] Comment on above: Performed By: #### L 100.0100, L500.2500 #### [facility] [address] [place], [address] Absolute Neut 6.7 X10 3/uL Normal 2.0-7.7 [facility] Comment on above: Performed By: #### L 100.0100, L500.2500 #### [facility] [address] [place], [address] Basophils/100 WBC (Bld) 1.0 % Normal 0-1 [facility] Comment on above: Performed By: #### L 100.0100, L500.2500 #### [facility] [address] [place], [address] Eosinophils/100 WBC (Bld) 1.3 % Normal 0-5 [facility] Comment on above: Performed By: #### L 100.0100, L500.2500 #### [facility] [address] [place], [address] Erythrocyte distribution width (RBC) [Ratio] 13.6 % Normal 11.6-14.6 [facility] Comment on above: Performed By: #### L 100.0100, L500.2500 #### [facility] [address] [place], [address] Hematocrit (Bld) [Volume fraction] 37.0 % Normal 37-47 [facility] Comment on above: Performed By: #### L 100.0100, L500.2500 #### [facility] [address] [place], [address] Hemoglobin (Bld) [Mass/Vol] 11.5 g/dL Low 12.0-15.0 [facility] Comment on above: Performed By: #### L 100.0100, L500.2500 #### [facility] [address] [place], [address] IG% 0.700 Normal 0.0-0.9 [facility] Comment on above: Result Comment: IG% - Immature Granulocytes (promyelocytes, myelocytes and metamyelocytes) > 1% indicates that a LEFT SHIFT is Present. Performed By: #### L 100.0100, L500.2500 #### [facility] [address] [place], [address] Lymphocytes/100 WBC (Bld) 12.1 % Low 19-41 [facility] Comment on above: Performed By: #### L 100.0100, L500.2500 #### [facility] [address] [place], [address] MCH (RBC) [Entitic mass] 25.8 pg Low 27.0-32.0 [facility] Comment on above: Performed By: #### L 100.0100, L500.2500 #### [facility] [address] [place], [address] MCHC (RBC) [Mass/Vol] 31.1 g/dL Low 32-36 [facility] Comment on above: Performed By: #### L 100.0100, L500.2500 #### [facility] [address] [place], [address] MCV (RBC) [Entitic vol] 83.1 fL Normal 81-99 [facility] Comment on above: Performed By: #### L 100.0100, L500.2500 #### [facility] [address] [place], [address] Monocytes/100 WBC (Bld) 7.1 % Normal 0-10 [facility] Comment on above: Performed By: #### L 100.0100, L500.2500 #### [facility] [address] [place], [address] Neutrophils/100 WBC (Bld) 77.8 % High 47-70 [facility] Comment on above: Performed By: #### L 100.0100, L500.2500 #### [facility] [address] [place], [address] Nucleated RBC (Bld) [#/Vol] 0 10*3/uL Normal 0-5 [facility] Comment on above: Performed By: #### L 100.0100, L500.2500 #### [facility] [address] [place], [address] Platelet mean volume (Bld) [Entitic vol] 12.2 fL High 6.2-12.0 [facility] Comment on above: Performed By: #### L 100.0100, L500.2500 #### [facility] [address] [place], [address] Platelets (Bld) [#/Vol] 244 10*3/uL Normal 150-450 [facility] Comment on above: Performed By: #### L 100.0100, L500.2500 #### [facility] [address] [place], [address] RBC (Bld) [#/Vol] 4.45 10*6/uL Normal 4.2-5.4 [facility] Comment on above: Performed By: #### L 100.0100, L500.2500 #### [facility] [address] [place], [address] RDW SD 41.1 fl Normal 35.1-43.9 [facility] Comment on above: Performed By: #### L 100.0100, L500.2500 #### [facility] [address] [place], [address] WBC (Bld) [#/Vol] 8.6 10*3/uL Normal 4.4-11.0 [facility] Comment on above: Performed By: #### L 100.0100, L500.2500 #### [facility] [address] [place], [address] Chest PA and Lateralon 12-31 Chest PA and Lateral [facility] [address] [place] [address] Chest PA and Lateral MR#: [id number] Acct: [id number] Name: SELVIN ROSAS Rep #: [id number] : 1945 F 79 From: Jos Chauhan MD PCP: Sisi York PA-C Status: PRE [facility] Study: Chest PA and Lateral Date of Exam: 12/31/24 Exam# [id number] Ordering Dr: Eloy Villatoro MD PROCEDURE: CHEST PA AND LATERAL 12/31/2024 REASON FOR EXAM: DYSONEA ON EXERTION TECHNIQUE: Procedure Code: RADCXR Modality: DX Procedure: CHEST PA AND LATERAL COMPARISON: None FINDINGS: Hardware: None Heart: Normal size. Mediastinum: Tortuous aorta. Lungs: Clear. No pneumothorax or pleural effusion. Bones: The bones are unremarkable. RAD/Chest PA and Lateral IMPRESSION: No acute abnormality Reading Location: [id number] CC: AMIE York; Dr. Eloy Villatoro MD Reel Repairer: Signed Normal [facility] Cardiology Visit Reporton Cardiology Visit Report [facility] [address] [place] [address] OFFICE VISIT Date of Service: 12/13/24 MR#: [id number] Acct: [id number] Name: SELVIN ROSAS Rep #: [id number] : 1945 Provider: Dr. Eloy Villatoro MD Age/Sex: 79/F Location[place] [facility] Status: Signed HPI HPI History of Present Illness Details: Selvin Rosas is a 79-year-old female that presents here today for a cardiovascular follow-up. She does have a history of hyperlipidemia, PSVT, hyperlipidemia, breast carcinoma with no chemotherapy. Her major problem at this time is shortness of breath which she says that she has had for almost 2 years. During her last visit she had complained of some atypical chest discomfort and she was directed and had her gallbladder removed. She continues to be short of breath. She did have a pharmacologic stress test in September of this year which demonstrated no evidence of ischemia and her echocardiogram demonstrated preserved ejection fraction but pulmonary artery systolic pressure was 38 mmHg which was increased from 24 mmHg from 3 years ago. She is very concerned about the above. She had seen a fashion marketer and had pulmonary function tests which demonstrated large airway disease. She has not had any chest pain to suggest angina. No dizziness no diaphoresis no near-syncope or syncope. Her physical exam today demonstrates clear lung conklin regular rate and rhythm no pedal edema electrocardiogram demonstrates sinus rhythm with sinus arrhythmia and a rate of 89 bpm. Intake Vital Signs 09/27/23 09:42 09/03/24 07:25 12/03/24 07:37 12/13/24 08:47 Height 5 ft 7 in 5 ft 7 in 5 ft 7 in 5 ft 7 in Weight: 239 lb BMI 37.4 BP 141/73 H Blood Pressure Location Lt brachial Position Sitting Respiration 16 Pulse 92 Pulse Source Monitor Intake Visit Reasons: 1 Y FU Youth Manager Required: No Accompanied by: Significant Other Is patient in pain?: No Allergies hydrochlorothiazide Adverse Reaction (Intermediate, Verified 12/13/24 09:15) Makes hot flashes worse, also sulfa in it. latex Adverse Reaction (Verified 12/13/24 09:15) Rash Penicillins Adverse Reaction (Verified 12/13/24 09:15) Hives Sulfa (Sulfonamide Antibiotics) Adverse Reaction (Verified 12/13/24 09:15) Hives Medications ???Medication ???Instructions ???Recorded ???Confirmed ???Type pantoprazole 40 mg tablet,delayed 40 mg PO DAILY 01/30/18 12/13/24 History release fluoxetine 40 mg capsule 40 mg PO DAILY 01/18/22 12/13/24 H istory melatonin 10 mg capsule 10 mg PO QHS PRN 01/18/22 12/13/24 History levothyroxine 50 mcg capsule 75 mcg PO DAILY 05/22/23 12/13/24 History losartan 50 mg tablet 50 mg PO DAILY #90 tabs 09/18/24 0 12/13/24 Rx fluticasone fur. 100 mcg-umeclid 1 inh inhalation QDAY 12/13/24 History 62.5 mcg-vilant 25 mcg inhalat.powder (Trelegy Ellipta) Have you fallen in the past year?: No PFSH Medical History Essential hypertension Cyst of left breast Left breast lump Paroxysmal supraventricular tachycardia Obesity Cyst of right breast Lump of right breast History of right breast cancer Axillary lymphadenopathy Hiatal hernia Cataract Arthritis Gastric ulcer First degree AV block Ophthalmic migraine Depression Hyperlipidemia Hypertriglyceridemia Hypothyroidism TIA (transient ischemic attack) Surgical History FH: cholecystectomy History of cataract surgery History of colonoscopy History of endoscopy History of lumpectomy H/O total hysterectomy History of bladder surgery Family History Father Cancer Osteoarthritis Mother Skin cancer Osteoarthritis Grandmother Breast cancer Cervical cancer Social History Smoking Status: Former smoker alcohol intake: current alcohol intake frequency: a few times a month substance use type: does not use caffeine: Yes Type: coffee Number of servings: 2 ROS Const Const: Positive for fatigue (generalized); Negative for weakness, headache(s), daytime sleepiness or difficulty sleeping ENT ENT: Positive for dizziness; Negative for headache(s) or Nosebleed/epistaxis Cardio Chest Pain: No Palpitations: No Edema: Bilateral (BLE) Resp Respiratory: Positive for SOB with activity; Negative for SOB at rest, SOB orthopnea SOB lying down or Cough GI GI: Negative nausea, vomiting or heartburn Neuro Neuro: Positive for dizziness; Negative for lightheadedness, near syncope, headache(s) or weakness Endo Endo: Positive for fatigue (generalized) Cardiology Exam Const Appearance: cooperative, health (more content not included)... Normal [facility] Pulmonary Visit Reporton Pulmonary Visit Report [facility] [address] [place] [address] OFFICE VISIT Date of Service: 12/03/24 MR#: [id number] Acct: [id number] Name: SELVIN ROSAS Rep #: [id number] : 1945 Provider: La Hernandez NP Age/Sex: 79/F [place] [facility] [place] Status: Signed Assessment and Plan Assessment and Plan (1) Shortness of breath: Plan: There has been improvement in her lung functioning's when compared to previous PFT from July 14, 2022. Recent stress testing was within normal limits. There has been an increase in the pulmonary artery systolic pressure when compared to the last echocardiogram from 2021 which showed a pulmonary artery systolic pressure of 24 mmHg. The most recent echocardiogram shows a pulmonary artery pressure of 38 mmHg. This could be contributing to her shortness of breath. It is unclear whether pulmonary hypertension is primary or secondary. The patient could have sleep disordered breathing present in the context of a negative home sleep study as the home studies do have limitations. Unfortunately the patient is not willing to undergo an in lab PSG at this time nor consider treatment with PAP therapy if the study were positive. A right heart cath would determine if pulmonary hypertension were primary verses secondary. Patient does not want to pursue a cath at this time until she further discusses with cardiology and trials change in inhaled therapy. The working diagnosis for shortness of breath includes pulmonary hypertension and deconditioning. COPD is less likely as there are preserved lung volumes and diffusion capacity. Asthma is less likely as there is no significant reversibility with use of beta agonist seen on the PFT and no evidence of small airway disease. I will trial triple therapy to see if she has benefit with high dose ICS. She is to hold Stiolto and begin Trelegy 200, 1 inhalation daily. Samples have been provided to her today. She will notify this practice in approximately 25 to 28 days to share the response to inhaled therapy. (2) Cough: Status: Acute Qualifiers: Cough type: chronic Qualified Code(s): R05.3 - Chronic cough Plan: The NIOX is within normal limits. Patient does not believe that the previous course of oral prednisone was beneficial in regards to shortness of breath. If triple therapy is beneficial then I will consider adding albuterol as well. (3) Obesity: Status: Chronic Qualifiers: Body mass [...] obtained through prudent diet and daily exercising. The patient understands that I do not prescribe weight loss medicine. I have offered referral to Weight Management Program through [facility] and she has declined due to drive distance. Plan This note was generated with [employer] dictation software. It may contain incorrect words, spelling, and punctuation that were not noted in checking the note before signing. Plan Details Follow Up: 3 Months (LMR) HPI HPI Comments Details: Patient is a 79-year-old female who presents today for follow-up. She has a history of dyspnea on exertion and COVID. She is ambulatory and currently on room air. Since last follow-up she has not had respiratory illness requiring oral prednisone or antibiotics. If you recall at last office visit she was prescribed a short course of oral prednisone due to the wheeze identified on exam and the previous respiratory illness that was lingering. She reports that it did not improve her shortness of breath. She has continued to use Stiolto but does not believe that it has improved her shortness of breath. Patient denies any complication when she is using the inhaler. Patient states she did have COVID in March and feels that she is still having issues with recovery. The patient feels like her symptoms started with COVID in June 2019. She feels like her shortness of breath is worsening. She reports today that I cannot do anything . Her shortness of breath has made it difficult for her to clean her house. She reports that she is no longer able to garden. She reports that he takes her 15 to 20 minutes to catch her breath. She indicates that the walk down to her mailbox and across the street to talk to the neighbor will cause the shortness of breath. She reports that she has to stop the activity and wait until she can catch her breath to be able to talk to the neighbor. She does have a dry cough. She reports wheezing is present. She denies chest pain and chest tightness. She does have a runny nose and will (more content not included)... Normal [facility] Cardiovascular stress test r eportOrdered By: Eloy Villatoro on 10-15-2024 Study report [facility] [address] [place] [address] MR#: [id number] Acct: [id number] Name: SELVIN ROSAS Rep #: [id number] : 1945 79 From: Eloy Villatoro MD Primary Care: Sisi York PA-C Status : REG CLI Referring Dr: Gino Valdez NP GEAR REPAIR SUPERVISOR-C Sex: F C Stress Test Report Pharmacologic myocardial perfusion stress test. 79-year-old lady with a history of dyspnea on exertion Resting EKG demonstrates sinus rhythm with a rate of 83 bpm. Resting blood pressure is 128/74 mmHg. 0.4 mg of regadenoson was infused per usual protocol followed by rapid intravenous saline flush injection. Continuous EKG monitoringwas performed. The maximum heart rate was 96 bpm which was 67% of max impacted heart rate the maximum workload was 1 metabolic equivalent. At rest there were no ST or T wave changes noted to suggest ischemia and at peak infusion nonspecific ST changes were noted which did not meet the criteria for ischemia. No clinical angina is noted. The final blood pressure was 110/60 mmHg. Myocardial perfusion protocol. 14.4 mCi of technetium 99m sestamibi was injected at rest. 0.4 mg of regadenoson was infused per usual protocol. At peak infusion 44 point mCi of technetium 99m sestamibi was injected stress images were obtained stress and rest images were reconstructed and compared in the short axis vertical long and horizontal long axis. Gated images were also obtained. Perfusion SPECT analysis: Review of the stress images demonstrate normal uptake of tracer noted in all areas of the myocardium. The resting images similar demonstrated normal uptake of tracer noted in all areas of the myocardium. No areas of reversibility are noted to suggest ischemia and no previous infarct is noted. Gated SPECT analysis: The gated ejection fraction is 75%. Conclusion: Normal pharmacologic myocardial perfusion stress test. Preserved ejection fraction. 10/15/241837 Date _ Eloy Villatoro MD CC: LATESHA-C Gino Valdez; AMIE York Date Dictated: 10/15/241836 Date Transcribed: 10/15/241836 Reel Repairer: CO Signed [facility] Work Phone: Echo Completeon 10-15-2024 Echo Complete [facility] [address] [place] [address]. [place] [address] Echo Complete 10/15/24 1000 MR#: [id number] Acct: [id number] Name: SELIVN ROSAS Rep #: [id number] : 1945 79 From: Eloy Villatoro MD Attending Dr: BRIANNA Briceno Status: REG CLI Ordering Dr: Gino Valdez NP GEAR REPAIR SUPERVISOR-C Date: 10/15/24 Location: [facility] Sex: F C Admitted: Reason For Study Reason For Study: Worsening SOB Procedure This was a 2D Doppler, Color Flow transthoracic echocardiogram. Exam performed in department. Left Ventricle Normal LV size. Mild concentric left ventricular hypertrophy. Left ventricular systolic function is normal. Stage 1 diastolic dysfunction. No regional wall motion abnormalities noted. Right Ventricle Normal RV size. Normal systolic function. Atria Normal left atrium. Normal right atrium. Mitral Valve Normal mitral valve. Tricuspid Valve Normal tricuspid valve. Mild tricuspid valve insufficiency. Pulmonary artery systolic pressure is 38 mmHg. Aortic Valve Trisinus/trileaflet aortic valve. Pulmonic Valve Normal pulmonic valve. Great Vessels Normal aortic root. The pulmonary artery is normal size. Inferior vena cava collapse with respiration. Pericardium/Pleural No pericardial effusion. MMode/2D Measurements Calculations LVIDd: 4.5 cm IVSd: 1.3 cm Ao root diam: 3.6 cm LVIDs: 3.2 cm LVPWd: 1.2 cm RVDd: 4.0 cm FS: 27.4 % LAV(MOD-bp): 51.5 ml LVAd ap4: 30.2 cm2 SV(MOD-sp4): 53.1 ml LAV(MOD-bp) Indexed: 23.6 ml/m2 LVLd ap4: 7.1 cm SI(MOD-sp4): 24.3 ml/m2 LAV(MOD-sp2): 51.7 ml EDV(MOD-sp4): 102.4 ml LAV(MOD-sp4): 50.0 ml EDV(sp4-el): 108.0 ml LVAs ap4: 19.5 cm2 LVLs ap4: 6.4 cm ESV(MOD-sp4): 49.3 ml ESV(sp4-el): 50.4 ml EF(MOD-sp4): 51.9 % EF(sp4-el): 53.3 % SV(sp4-el): 57.6 ml LA A4 area: 18.1 cm2 LA dimension(2D): 3.8 cm RA A4 area: 18.0 cm2 TAPSE: 2.3 cm Time Measurements MV dec time: 0.16 sec Doppler Measurements Calculations MV E max marcello: 79.6 cm/sec Lat Peak E' Marcello: 6.1 cm/sec Med Peak E' Marcello: 8.3 cm/sec MV A max marcello: 90.2 cm/sec E/E' lat: 13.0 E/E' med: 9.6 MV E/A: 0.88 MV V2 max: 107.7 cm/sec MV P1/2t max marcello: 103.7 cm/sec Ao V2 max: 148.9 cm/sec MV max P.7 mmHg MV P1/2t: 65.7 msec Ao max P.9 mmHg MV V2 mean: 62.9 cm/sec Ao V2 mean: 102.8 cm/sec MV mean P.8 mmHg MV dec slope: 462.5 cm/sec2 Ao mean P.7 mmHg MV V2 VTI: 30.1 cm MVA(P1/2t): 3.4 cm2 Ao V2 VTI: 36.8 cm AV (velocity ratio): 0.75 LV V1 max: 108.8 cm/sec PA V2 max: 101.8 cm/sec TR max marcello: 292.1 cm/sec LV V1 max P.7 mmHg TR max P.1 mmHg LV V1 mean P.6 mmHg LV V1 mean: 76.6 cm/sec LV V1 VTI: 27.5 cm ECHO/Echo Complete Interpretation Summary Left ventricular systolic function is normal. Normal LV size. Stage 1 diastolic dysfunction. Pulmonary artery systolic pressure is 38 mmHg. Structurally normal valves. Ordering Physician: Gino Valdez Referring Physician: Gino Valdez Performed By: Thomas Mazariegos RCS 10/15/24 1556 Date Eloy Villatoro MD CC: BRIANNA Valdez; AMIE York Date Dictated: 10/15/24 1000 Date Transcribed: 10/15/241555 Reel Repairer: Signed Normal [facility] Echocardiogram study reportO rdered By: Eloy Villatoro on 10-15-2024 Study report [facility] [address] [place] [address] Echo Complete 10/15/24 1000 MR#: [id number] Acct: [id number] Name: WINTERSOSELVIN ALCARAZ Rep #:[id number] : 1945 79 From: Eloy John Attending Dr: BRIANNA Briceno [facility] tus: REG CLI Ordering Dr: Gino Valdez NP Date: 10/15/24 Location: [facility] Sex: F C Admitted: Reason For Study Reason For Study: Worsening SOB Procedure This was a 2D Doppler, Color Flow transthoracic echocardiogram. Exam performed in department. Left Ventricle Normal LV size. Mild concentric left ventricular hypertrophy. Left ventricular systolic function is normal. Stage 1 diastolic dysfunction. No regional wall motion abnormalities noted. Right Ventricle Normal RV size. Normal systolic function. Atria Normal left atrium. Normal right atrium. Mitral Valve Normal mitral valve. Tricuspid Valve Normal tricuspid valve. Mild tricuspid valve insufficiency. Pulmonary artery systolic pressure is 38 mmHg. Aortic Valve Trisinus/trileaflet aortic valve. Pulmonic Valve Normal pulmonic valve. Great Vessels Normal aortic root. The pulmonary artery is normal size. Inferior vena cava collapse with respiration. Pericardium/Pleural No pericardial effusion. MMode/2D Measurements & Calculations LVIDd: 4.5 cm IVSd: 1.3 cm Ao root diam: 3.6 cm LVIDs: 3.2 cm LVPWd: 1.2 cm RVDd: 4.0 cm FS: 27.4 % LAV(MOD-bp): 51.5 ml LVAd ap4: 30.2 cm2 SV(MOD-sp4): 53.1 ml LAV(MOD-bp) Indexed: 23.6 ml/m2 LVLd ap4: 7.1 cm SI(MOD-sp4): 24.3 ml/m2 LAV(MOD-sp2): 51.7 ml EDV(MOD-sp4): 102.4 ml LAV(MOD-sp4): 50.0 ml EDV(sp4-el): 108.0 ml LVAs ap4: 19.5 cm2 LVLs ap4: 6.4 cm ESV(MOD-sp4): 49.3 ml ESV(sp4-el): 50.4 ml EF(MOD-sp4): 51.9 % EF(sp4-el): 53.3 % SV(sp4-el): 57.6 ml LA A4 area: 18.1 cm2 LA dimension(2D): 3.8 cm RA A4 area: 18.0 cm2 TAPSE: 2.3 cm Time Measurements MV dec time: 0.16 sec Doppler Measurements & Calculations MV E max marcello: 79.6 cm/sec Lat Peak E' Marcello: 6.1 cm/sec Med Peak E' Marcello: 8.3 cm/sec MV A max marcello: 90.2 cm/sec E/E' lat: 13.0 E/E' med: 9.6 MV E/A: 0.88 MV V2 max: 107.7 cm/sec MV P1/2t max marcello: 103.7 cm/sec Ao V2 max: 148.9 cm/sec MV max P.7 mmHg MV P1/2t: 65.7 msec Ao max P.9 mmHg MV V2 mean: 62.9 cm/sec Ao V2 mean: 102.8 cm/sec MV mean P.8 mmHg MV dec slope: 462.5 cm/sec2 Ao mean P.7 mmHg MV V2 VTI: 30.1 cm MVA(P1/2t): 3.4 cm2 Ao V2 VTI: 36.8 cm AV (velocity ratio): 0.75 LV V1 max: 108.8 cm/sec PA V2 max: 101.8 cm/sec TR max marcello: 292.1 cm/sec LV V1 max P.7 mmHg TR max P.1 mmHg LV V1 mean P.6 mmHg LV V1 mean: 76.6 cm/sec LV V1 VTI: 27.5 cm ECHO/Echo Complete Interpretation Summary Left ventricular systolic function is normal. Normal LV size. Stage 1 diastolic dysfunction. Pulmonary artery systolic pressure is 38 mmHg. Structurally normal valves. Ordering Physician: Gino Valdez Referring Physician: Gino Valdez Performed By: Thomas Mazariegos RCS 10/15/24 1556 Date _ Eloy Villatoro MD CC: GEAR REPAIR SUPERVISOR-C Gino Valdez; AMIE York ~ Date Dictated: 10/15/24 1000 Date Transcribed: 10/15/24 1556 Reel Repairer: Signed [facility] Work Phone: Stress Reporton 10-15-2024 Stress Report [facility] [address] [place] [address] MR#: [id number] Acct: [id number] Name: SELVIN ROSAS Rep #: [id number] : 1945 79 From: Eloy Villatoro MD Primary Care: Sisi York PA-C Status: REG CLI Referring Dr: Gino Valdez NP Sex: F C Stress Test Report Pharmacologic myocardial perfusion stress test. 79-year-old lady with a history of dyspnea on exertion Resting EKG demonstrates sinus rhythm with a rate of 83 bpm. Resting blood pressure is 128/74 mmHg. 0.4 mg of regadenoson was infused per usual protocol followed by rapid intravenous saline flush injection. Continuous EKG monitoring was performed. The maximum heart rate was 96 bpm which was 67% of max impacted heart rate the maximum workload was 1 metabolic equivalent. At rest there were no ST or T wave changes noted to suggest ischemia and at peak infusion nonspecific ST changes were noted which did not meet the criteria for ischemia. No clinical angina is noted. The final blood pressure was 110/60 mmHg. Myocardial perfusion protocol. 14.4 mCi of technetium 99m sestamibi was injected at rest. 0.4 mg of regadenoson was infused per usual protocol. At peak infusion 44 point mCi of technetium 99m sestamibi was injected stress images were obtained stress and rest images were reconstructed and compared in the short axis vertical long and horizontal long axis. Gated images were also obtained. Perfusion SPECT analysis: Review of the stress images demonstrate normal uptake of tracer noted in all areas of the myocardium. The resting images similar demonstrated normal uptake of tracer noted in all areas of the myocardium. No areas of reversibility are noted to suggest ischemia and no previous infarct is noted. Gated SPECT analysis: The gated ejection fraction is 75%. Conclusion: Normal pharmacologic myocardial perfusion stress test. Preserved ejection fraction. 10/15/241837 Date Eloy Villatoro MD CC: BRIANNA Valdez; AMIE York Date Dictated: 10/15/241836 Date Transcribed: 10/15/241836 Reel Repairer: CO Signed Normal [facility] Pulmonary Visit Reporton Pulmonary Visit Report [facility] [address] [place] [address] OFFICE VISIT Date of Service: 09/03/24 MR#: [id number] Acct: [id number] Name: SELVIN ROSAS Rep #: [id number] : 1945 Provider: La Hernandez NP Age/Sex: 78/F [place] [facility] [place] Status: Signed Assessment and Plan Assessment and Plan (1) Shortness of breath: Plan: There has been improvement in her lung functioning's when compared to previous PFT from July 14, 2022. I am concerned that there is a cardiovascular component present as her shortness of breath is predictable and she has a longer recovery time. I plan to send a message to Gino Valdez, [facility] Cardiology to notify him of her shortness [...] 78-year-old female, currently under the care of [facility], who presents today to review [...] June 2019. The patient indicates that her warp tying machine tender had recommended a stress test and she was planning to further discuss this in October 2024. She is a former smoker at 1.5 packs/day for 43 years and quit in 2005. 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 Normal [facility] Pulmonary Visit Reporton Pulmonary Visit Report [facility] [address] [facility] [place] [address] OFFICE VISIT Date of Service: 07/10/24 MR#: [id number] Acct: [id number] Name: SELVIN ROSAS Rep #: [id number] : 1945 Provider: La Hernandez NP Age/Sex: 78/F Location[place] [facility] [place] Status: Signed Assessment and Plan Assessment and [...] have recommended that she follow-up with her PCP/warp tying machine tender for further management (2) Cough: Status: Acute [...] 78-year-old female, currently under the care of [facility], who is overdue for her [...] Intake Visit Reasons: Over due for f/u Youth Manager Required: No DME Vendor: n/a Accompanied by: [...] Rx mcg/actu (more content not included)... Normal [facility] TSHon 03-13-2024 TSH Qn 2.01 m[IU]/L Normal 0.35 - 3.74 [facility] Comment on above: Performed By: #### 2 [id number] #### [facility],[address] [place] [id number] CMP with eGFRon 03-07-2024 AGE 78 years Normal [facility] Comment on above: Performed By: #### 2 29926 #### [facility],[address] [place] [address] 71247 Albumin [Mass/Vol] 3.4 g/dL Normal 3.4 - 5.0 [facility] Comment on above: Performed By: #### 2 53556 #### [facility],[address] [place] [address] 17682 Albumin/Globulin [Mass ratio] 1.0 {ratio} Normal 0.9 - 1.6 [facility] Comment on above: Performed By: #### 2 11551 #### [facility],[address] [place] [address] 79874 ALK PHOS 120 U/L High 46 - 116 [facility] Comment on above: Performed By: #### 2 04327 #### [facility],[address] [place] [address] 18517 ALT [Catalytic activity/Vol] 31 U/L Normal 16 - 63 [facility] Comment on above: Performed By: #### 2 65607 #### [facility],[address] [place] [address] 55301 Anion gap [Moles/Vol] 11 mmol/L Normal 10 - 20 [facility] Comment on above: Performed By: #### 2 97959 #### [facility],[address] [place] [address] 32865 AST [Catalytic activity/Vol] 20 U/L Normal 13 - 39 [facility] Comment on above: Performed By: #### 2 04098 #### [facility],[address] [place] [address] 94784 B/C RATIO 21 ratio Normal 0 - 30 [facility] Comment on above: Performed By: #### 2 87519 #### [facility],[address] [place] [address] 88854 Bilirubin [Mass/Vol] 0.3 mg/dL Normal 0.2 - 1.0 [facility] Comment on above: Performed By: #### 2 35203 #### [facility],[address] [place] [address] 02141 Calcium [Mass/Vol] 8.6 mg/dL Normal 8.5 - 10.1 [facility] Comment on above: Performed By: #### 2 97818 #### [facility],[address] [place] [address] 51521 Chloride [Moles/Vol] 106 mmol/L Normal 98 - 107 [facility] Comment on above: Performed By: #### 2 00076 #### [facility],[address] [place], [place] [id number] CMP with eGFR Normal [facility] Comment on above: Result Comment: COMP REHENSIVE METABOLIC PANEL Performed By: #### 2 10191 #### [facility],[address] [place] [address] 06607 CO2 [Moles/Vol] 29.3 mmol/L Normal 21.0 - 32.0 [facility] Comment on above: Performed By: #### 2 05741 #### [facility],[address] [place] [address] 12336 Creatinine [Mass/Vol] 0.72 mg/dL Normal 0.55 - 1.02 [facility] Comment on above: Performed By: #### 2 15698 #### [facility],[address] [place] [address] 12371 GFR/1.73 sq M.predicted among non-blacks MDRD (S/P/Bld) [Vol rate/Area] mL/min/{1.73_m2} Normal 60 - 999 [facility] Comment on above: Performed By: #### 2 27339 #### [facility],[address] [place] [address] Result Comment: ACCO RDING TO THE NATIONAL KIDNEY DISEASE EDUCATION PROGRAM(NKDE), A NORMAL eGFR IS A VALUE GREATER THAN OR EQUAL TO 60 ML/MIN/1.73 SQ METERS. CHRONIC KIDNEY DISEASE: <60mL/MIN/1.73 SQ METERS KIDNEY FAILURE: <15mL/MIN/1.73 SQ METERS THIS TEST SHOULD ONLY BE USED FOR PATIENTS 18 YEARS OF AGE AND OLDER. Globulin (S) [Mass/Vol] 3.5 g/dL Normal 1.5 - 3.8 [facility] Comment on above: Performed By: #### 2 17056 #### [facility],[address] [place] [address] 48847 Glucose [Mass/Vol] 92 mg/dL Normal 74 - 106 [facility] Comment on above: Performed By: #### 2 89808 #### [facility],[address] [place] [address] 29235 Potassium [Moles/Vol] 4.0 mmol/L Normal 3.5 - 5.1 [facility] [facility] Comment on above: Performed By: #### 2 33304 #### [facility],[address] [place] [address] 88040 Protein [Mass/Vol] 6.9 g/dL Normal 6.4 - 8.2 [facility] Comment on above: Performed By: #### 2 55546 #### [facility],[address] [place] [address] 64689 Sodium [Moles/Vol] 142 mmol/L Normal 136 - 145 [facility] Comment on above: Performed By: #### 2 99198 #### [facility],[address] [place] [address] 07058 Urea nitrogen [Mass/Vol] 15 mg/dL Normal 7 - 18 [facility] Comment on above: Performed By: #### 2 59904 #### [facility],[address] [place] [address] 26528 LIPID PROFILEon 03-07-2024 Cholesterol [Mass/Vol] 236 mg/dL Normal 0 - 240 [facility] Comment on above: Performed By: #### 2 41813 #### [facility],[address] [place] [address] 40890 Cholesterol in HDL [Mass/Vol] 58 mg/dL Normal 40 - 60 [facility] Comment on above: Performed By: #### 2 90482 #### [facility],[address] [place] [address] 54315 Cholesterol in LDL [Mass/Vol] 145 mg/dL High 0 - 129 [facility] Comment on above: Performed By: #### 2 04205 #### [facility],[address] [place] [address] 90816 Cholesterol.total/C holesterol in HDL [Mass ratio] 4.1 {ratio} Normal 0.0 - 5.0 [facility] Comment on above: Performed By: #### 2 15810 #### [facility],[address] [place] [address] 49817 Lipid 1996 panel Normal [facility] Comment on above: Result Comment: LIPI D PROFILE Performed By: #### 2 43884 #### [facility],[address] [place] [address] 19419 Triglyceride [Mass/Vol] 166 mg/dL High 0 - 150 [facility] Comment on above: Performed By: #### 2 13661 #### [facility],[address] [place] [address] 38369 OPERATIVE PROCEDURESon 12-26 OPERATIVE PROCEDURES [facility] OPERATIVE REPORT NAME ACCOUNT SEX AGE ADMIT DISCHARGE PT MED. RECORD# NUMBER DATE DATE TYPE ALISON, [id number] F 78 12/11/23 12/11/23 2 SELVIN Lara [id number] ROOM: [facility] DATE OF : 1945 DICTATING PHYSICIAN: David Marcano DATE OF SURGERY: December 11, 2023 SURGEON: David Marcano MD GAS MAIN FITTER HELPER: First Ghanshyam Assist ANESTHESIOLOGIST: Yazan Mike CRNA ANESTHETIC: Local anesthesia, [...] 1 of 2 SELVIN ROSAS Operative Report J SELVIN ROSAS : 1945 position with adequate padding [...] David Marcano MD 12/11/23 09:10 JOB #: [id number] Transcribed By: jesse 12/11/23 11:51 Electronically signed by: E-Sign Dr. David Marcano MD 12/27/23 14:50 Page 2 of 2 ALISON SELVIN Operative Report J Normal [facility] CHEST 2 VIEWSon 12-01-2023 CHEST 2 VIEWS [place] [address] Patient: SELVIN ROSAS. Phone#: : 1945 Age: 78 Gender: F Pt. Type: Out Account: [id number] Location: [facility] Ordering: DAVID MARCANO Exam Date: 12/01/2023/8:50 Family Phys: [facility] Charge Code: 562381 Physician: Morrill Order #: [id number] Dose#: PROCEDURE: X-RAY CHEST 2 VIEWS COMPARISON: [facility], XR, CHEST 2 VIEWS, 07/07/2022, 13:10. INDICATIONS: [...] Garcia MD on 12/01/2023 at 15:50 Normal [facility] URINE CULTURE [CCL]on 2023 Bacteria identified Cx Nom (U) URCUL See Results Below See Below CULTURE, URINE MIXED MICROBIOTA 50,000-<100,000 CFU/ml Mixed microbiota No further workup. Mixed microbiota can be due to???urine???contaminat ion with s SOURCE: Urine (Nonspecific) [place] [address] Brent Cary III, M.D. [id number] SEND TO IC YES Normal [facility] Comment on above: Performed By: #### 2 88085 #### [facility],[address] [place] [address] Bacteria Ur Culton Bacteria identified Cx Nom (U) ORGANISM ID: 1 50,000-<100,000 CFU/ml Mixed microbiota No further workup. Mixed microbiota can be due to???urine???contaminat ion with skin bacteria at time of collection or presence of a long-term urinary catheter. If a new culture is needed, please consider re-education of the patient on proper midstream collection technique or straight catheterization for???urine???collectio n. Normal [facility] Comment on above: Performed By: #### 6 30-4 #### [facility] CLIA [id number] [address] [place] [address] [place] CBC + DIFFon 11-28-2023 Baso # 0.04 x10EE3/UL Normal 0.00 - 0.10 [facility] Comment on above: Performed By: #### 2 94696 #### [address] [address] Basophils/100 WBC (Bld) 0.4 % Normal 0.0 - 2.0 [facility] Comment on above: Performed By: #### 2 32316 #### [place] [id number] CBC + DIFF Normal [facility] Comment on above: Result Comment: CBC- COMPLETE BLOOD COUNT Performed By: #### 2 24563 #### [facility],[address] [place] [address] EO # 0.06 x10EE3/UL Normal 0.00 - 0.50 [facility] Comment on above: Performed By: #### 2 25681 #### [facility],[address] [place] [address] Eosinophils/100 WBC (Bld) 0.7 % Normal 0.0 - 7.0 [facility] Comment on above: Performed By: #### 2 36322 #### [facility],[address] [place] [address] Erythrocyte distribution width (RBC) [Ratio] 14.3 % Normal 12.0 - 15.6 [facility] Comment on above: Performed By: #### 2 99123 #### [facility],[address] [place] [address] Hematocrit (Bld) [Volume fraction] 36.7 % Normal 34.0 - 46.0 [facility] Comment on above: Performed By: #### 2 97301 #### [facility],[address] [place] [address] Hemoglobin (Bld) [Mass/Vol] 12.1 g/dL Normal 12.0 - 16.0 [facility] Comment on above: Performed By: #### 2 44536 #### [facility],[address] [place] [address] Lymph # 1.49 x10EE3/UL Normal 0.80 - 2.80 [facility] Comment on above: Performed By: #### 2 27883 #### [facility],[address] [place] [address] Lymphocytes/100 WBC (Bld) 16.1 % Low 20.0 - 45.0 [facility] Comment on above: Performed By: #### 2 69235 #### [facility],[address] [place] [address] MANUAL DIFF N/A Normal [facility] Comment on above: Performed By: #### 2 12237 #### [facility],[address] [place] [address] MCH (RBC) [Entitic mass] 27 pg Normal 27 - 33 [facility] Comment on above: Performed By: #### 2 52041 #### [facility],[address] [place] [address] MCHC 33 X10 3 Normal 32 - 36 [facility] Comment on above: Performed By: #### 2 91864 #### [facility],[address] [place] [address] MCV (RBC) [Entitic vol] 83 fL Normal 80 - 99 [facility] Comment on above: Performed By: #### 2 98795 #### [facility],[address] [place] [address] Mobile # 0.51 x10EE3/UL Normal 0.20 - 1.00 [facility] Comment on above: Performed By: #### 2 71139 #### [facility],[address] [place] [address] MONOS % 5.6 % Normal 0.0 - 10.0 [facility] Comment on above: Performed By: #### 2 71140 #### [facility],[address] [place] [address] Morphology Brandon (Bld) [Interp] N/A Normal [facility] Comment on above: Performed By: #### 2 80080 #### [facility],[address] [place] [address] Neut # 7.13 x10EE3/UL High 1.50 - 7.10 [facility] Comment on above: Performed By: #### 2 14878 #### [facility],[address] [place] [address] 05154 Neutrophils/100 WBC (Bld) 77.3 % High 46.0 - 76.0 [facility] Comment on above: Performed By: #### 2 46870 #### [facility],[address] [place] [address] 49573 PLATELET 230 x10EE3/UL Normal 150 - 450 [facility] Comment on above: Performed By: #### 2 30490 #### [facility],[address] [place] [address] 40614 Platelet mean volume (Bld) [Entitic vol] 11.0 fL High 6.6 - 10.5 [facility] Comment on above: Result Comment: AUTO MATED DIFFERENTIAL Performed By: #### 2 43616 #### [facility],[address] [place] [address] 73256 RBC 4.44 x 10EE6/UL Normal 4.10 - 5.30 [facility] Comment on above: Performed By: #### 2 90571 #### [facility],[address] [place] [address] 71623 WBC 9.2 x 10EE3/UL Normal 4.5 - 10.8 [facility] Comment on above: Performed By: #### 2 91965 #### [facility],[address] [place] [address] 53412 CMP with eGFRon 11-28-2023 AGE 78 years Normal [facility] Comment on above: Performed By: #### 2 10851 #### [facility],[address] [place] [address] 93928 Albumin [Mass/Vol] 3.7 g/dL Normal 3.4 - 5.0 [facility] Comment on above: Performed By: #### 2 41316 #### [facility],[address] [place] [address] 84091 Albumin/Globulin [Mass ratio] 0.9 {ratio} Normal 0.9 - 1.6 [facility] Comment on above: Performed By: #### 2 58037 #### [facility],[address] [place] [address] 85021 ALK PHOS 119 U/L High 46 - 116 [facility] Comment on above: Performed By: #### 2 91905 #### [facility],[address] [place] [address] 36153 ALT [Catalytic activity/Vol] 23 U/L Normal 16 - 63 [facility] Comment on above: Performed By: #### 2 83034 #### [facility],[address] [place] [address] 13528 Anion gap [Moles/Vol] 15 mmol/L Normal 10 - 20 [facility] Comment on above: Performed By: #### 2 95718 #### [facility],[address] [place] [address] 93407 AST [Catalytic activity/Vol] 19 U/L Normal 13 - 39 [facility] Comment on above: Performed By: #### 2 93969 #### [facility],[address] [place] [address] 37890 B/C RATIO 19 ratio Normal 0 - 30 [facility] Comment on above: Performed By: #### 2 28491 #### [facility],[address] [place] [address] 68174 Bilirubin [Mass/Vol] 0.3 mg/dL Normal 0.2 - 1.0 [facility] Comment on above: Performed By: #### 2 14011 #### [facility],[address] [place] [address] 83734 Calcium [Mass/Vol] 9.0 mg/dL Normal 8.5 - 10.1 [facility] Comment on above: Performed By: #### 2 67567 #### [facility],[address] [place] [address] 48185 Chloride [Moles/Vol] 102 mmol/L Normal 98 - 107 [facility] Comment on above: Performed By: #### 2 76162 #### [facility],[address] [place] [address] 07978 CMP with eGFR Normal [facility] Comment on above: Result Comment: COMP REHENSIVE METABOLIC PANEL Performed By: #### 2 88584 #### [facility],[address] [place] [address] 96841 CO2 [Moles/Vol] 27.0 mmol/L Normal 21.0 - 32.0 [facility] Comment on above: Performed By: #### 2 36576 #### [facility],[address] [place] [address] 65696 Creatinine [Mass/Vol] 0.84 mg/dL Normal 0.55 - 1.02 [facility] Comment on above: Performed By: #### 2 38438 #### [facility],[address] [place] [address] 32171 GFR/1.73 sq M.predicted among non-blacks MDRD (S/P/Bld) [Vol rate/Area] mL/min/{1.73_m2} Normal 60 - 999 [facility] Comment on above: Performed By: #### 2 77446 #### [facility],[address] [place] [address] 43955 Result Comment: ACCO RDING TO THE NATIONAL KIDNEY DISEASE EDUCATION PROGRAM(NKDE), A NORMAL eGFR IS A VALUE GREATER THAN OR EQUAL TO 60 ML/MIN/1.73 SQ METERS. CHRONIC KIDNEY DISEASE: <60mL/MIN/1.73 SQ METERS KIDNEY FAILURE: <15mL/MIN/1.73 SQ METERS THIS TEST SHOULD ONLY BE USED FOR PATIENTS 18 YEARS OF AGE AND OLDER. Globulin (S) [Mass/Vol] 3.9 g/dL High 1.5 - 3.8 [facility] Comment on above: Performed By: #### 2 85775 #### [facility],[address] [place] [address] 47212 Glucose [Mass/Vol] 87 mg/dL Normal 74 - 106 [facility] Comment on above: Performed By: #### 2 72515 #### [facility],[address] [place] [address] 04134 Potassium [Moles/Vol] 4.0 mmol/L Normal 3.5 - 5.1 [facility] Comment on above: Performed By: #### 2 27971 #### [facility],[address] [place] [address] 02794 Protein [Mass/Vol] 7.6 g/dL Normal 6.4 - 8.2 [facility] Comment on above: Performed By: #### 2 22661 #### [facility],[address] [place] [address] 38175 Sodium [Moles/Vol] 140 mmol/L Normal 136 - 145 [facility] Comment on above: Performed By: #### 2 37960 #### [facility],[address] [place] [address] 38376 Urea nitrogen [Mass/Vol] 16 mg/dL Normal 7 - 18 [facility] Comment on above: Performed By: #### 2 79911 #### [facility],[address] [place] [address] 95445 LIPASEon 11-28-2023 Lipase [Catalytic activity/Vol] 36.0 U/L Normal 15.0 - 78.0 [facility] Comment on above: Result Comment: *PLE ASE NOTE THAT RANGES FOR LIPASE HAVE CHANGED OF 04/28/23 DUE TO AN ASSAY UPDATE BY THE [employer] FITTER.THE NEW ASSAY RANGE IS 6-250 U/L, WITH A REFERENCE RANGE OF 16-77 U/L. Performed By: #### 2 79468 #### [facility],[address] [place] [address] 54863 US RUQ (GB/PANCREAS)on 11-21 US RUQ (GB/PANCREAS) [address] [address] Patient: SELVIN ROSAS Phone#: : 1945 Age: 78 Gender: F Pt. Type: Out Account: [id number] Location: 052 Ordering: DAVID MARCANO Exam Date: 11/22/2023/10:15 Family Phys: SISI YORK Charge Code: 265595 Physician: Morrill Order #: [id number] Dose#: PROCEDURE: RUQ (GB) ULTRASOUND COMPARISON: None. [...] CHOWDHURY MD ON 11/22/2023 AT 17:39 Normal [facility] ESOPHAGRAMon 11-10-2023 ESOPHAGRAM [place] [address] Patient: SELVIN ROSAS Phone#: : 1945 Age: 78 Gender: F Pt. Type: Out Account: [id number] Location: 052 Ordering: DAVID MARCANO Exam Date: 11/10/2023/8:17 Family Phys: SISI YORK Charge Code: [id number] Physician: Morrill Order #: [id number] Dose#: [id number] mGy PROCEDURE: X-RAY ESOPHAGRAM COMPARISON: [...] Cinda Chowdhury MD on 11/10/2023 at 11:09 [facility] US EXTREMITY NONVASCULAR [place] ITEDon 10-25-2023 US EXTREMITY NONVASCULAR LIMITED [place] [address] Patient: SELVIN ROSAS Phone#: : 1945 Age: 78 Gender: F Pt. Type: Out Account: [id number] Location: [facility] Ordering: [facility] Exam Date: 10/25/2023/7:59 Family Phys: Charge Code: [id number] Physician: Morrill Order #: [id number] Dose#: PROCEDURE: ULTRASOUND NONVASCULAR LIMITED COMPARISON: None. [...] Cinda Chowdhury MD on 10/25/2023 at 14:08 [facility] Michael 06-22-2023 [facility] Telephone (RADMN) ALISONSELVIN Lara ([id number]) 1945 F [place] Date Time Provider Department 06/22/23 ASHLEY SÁNCHEZ RADMN During your visit today, we recorded the following information about you: Ashley Sánchez, RN 06/22/2023 1:43 PM Signed Called patient to notify the breast pathology results were benign per Dr. Lr. Informed patient a 6 month follow up is recommended. Patient verbalized understanding. Kyara Cole 09/06/2023 10:44 AM Signed Patient returned call wanting to schedule a six month follow up. No documentation in chart as to what specialist or procedure is needed to be scheduled. No active orders are in the patient's chart. Please contact patient to advise. Veronica Ashraf, HARIKA 2023 4:[address] Smith's [...] Colvin LPN 10/03/2023 1:18 PM Signed [facility] Pool6 days ago SB Orders [...] Results [95] Primary Visit Diagnosis:Abnormal mammogram [R92.8] Order(s):[facility] DIAGNOSTIC RIGHT [[id number]] Order #: [id number] FUTURE [facility] DIAGNOSTIC BILATERAL [[id number]] Order #: [id number] FUTURE Prescriptions as of 10/03/2023 - losartan [...] upper-inner quadrant of r*11/10/2016 Encounter Status:Closed by ASHLEY SÁNCHEZ on 06/22/23 Normal [facility] DBT Breast - bilateral diagn ostic for implanton 06-21-2023 [facility] DIAG W HUNG BILon 2023 [facility] [place] HUNG BRITNI * * *Final Report* * * DATE OF EXAM: Jun 21 2023 11:14AM ELIZABETH 0627 - [facility] [place] HUNG BRITNI / PROCEDURE REASON: ABNORMAL MAMM * * * * Physician Interpretation * * * * #[id number] - [facility] [place] HUNG BRITNI #[id number] - [facility] US BREAST LTD LT BILATERAL [...] 12/06/2016 mammogram, 06/21/2016 mammogram, 01/19/2016 mammogram - , and 06/04/2015 mammogram. The breasts are heterogeneously [...] 12/06/2016 mammogram, 06/21/2016 mammogram, 01/19/2016 mammogram - , and 06/04/2015 mammogram. Color flow and real-time [...] Health, Family Medicine, and Medical/Surgical Oncology, the [facility] has carefully reviewed the data and reached [...] Imaging Technol (more content not included)... Normal [facility] STEREO BX BREAST RTon [facility] STEREO BX BREAST RT * * *Final Report* * * * * * SEE BOTTOM OF REPORT FOR ADDENDED TEXT * * * DATE OF EXAM: Jun 21 2023 11:14AM ELIZABETH 0631 - [facility] STEREO BX BREAST RT / PROCEDURE REASON: R92.8-Abnormal finding on radiological examination of breast * * * * Physician Interpretation * * * * FINAL REPORT #[id number] - [facility] STEREO BX BREAST RT STEREOTACTIC [...] made to exams dated: 06/21/2023 mammogram - [facility], 03/29/2023 mammogram, and 03/17/2023 mammogram. A [...] location, eight cores were obtained using the [employer] system. A top hat clip was inserted [...] follow up. Nette ibrahim/benjamin:06/22/2023 13:39:35 Attending Technologist(s): Catherine Ugalde RT(R)(M), [facility] Steel Inspector(s): RT Jaymie(R)(M), [facility] Multiple national specialty organizations have released breast cancer screening guidelines for women at average risk for developing breast cancer - guidelines that are based on both evidence and opinion, yet differ on when to start and how often to screen for breast cancer. With representation from Breast Imaging, Internal Medicine, Women's Health, Family Medicine, and Medical/Surgical Oncology, the [facility] has carefully reviewed the data and reached [...] All women (more content not included)... Normal [facility] [employer] BREAST LTD LTon 06-21 [facility] [employer] BREAST LTD LT * * *Final Report* * * DATE OF EXAM: Jun 21 2023 9:58AM DANK [id number] - [facility] [employer] BREAST LTD LT / PROCEDURE REASON: R92.8-Abnormal finding on radiological examination of breast * * * * Physician Interpretation * * * * #[id number] - [facility] DIAG W HUNG BRITNI #[id number] - [facility] [employer] BILATERAL DIGITAL DIAGNOSTIC MAMMOGRAM TOMOSYNTHESIS WITH [...] 12/06/2016 mammogram, 06/21/2016 mammogram, 01/19/2016 mammogram - , and 06/04/2015 mammogram. The breasts are heterogeneously [...] 12/06/2016 mammogram, 06/21/2016 mammogram, 01/19/2016 mammogram - , and 06/04/2015 mammogram. Color flow and real-time [...] Health, Family Medicine, and Medical/Surgical Oncology, the [facility] has carefully reviewed the data and reached [...] their providers when (more content not included)... [facility] SURGICAL PATHOLOGYon 024 CASE REPORT Normal [facility] al Comment on above: Order Comment: Sammy ariza Type: TISSUE SPECIMEN Ordering Facility: [facility] Address: [address] [place] [address] Result Comment: Surg ica Pathology Report Case: [id number] Authorizing Provider: Eddie Jessica MD, PhD Collected: 06/21/2023 10:44 AM Ordering Location: Mammography Received: 06/21/2023 01:16 PM Pathologist: Marco Rodriguez MD Specimen: BREAST CORE BIOPSY RIGHT, Right breast stereotactic biopsy with tophat clip Performed By: #### S #### [facility] CLIA [id number] [address] [place] [address] FINAL DIAGNOSIS Normal [facility] christiano Comment on above: Order Comment: Sammy ariza Type: TISSUE SPECIMEN Ordering Facility: [facility] Address: [address] [place] [address] Result Comment: A. R ight breast, Top-Hat clip, stereotactic needle core biopsy: - Breast tissue with stromal fibrosis, fat necrosis and associated calcifications. JR 06/22/2023 Performed By: #### S #### [facility] CLIA [id number] [address] [place] [address] OF [place]ARY FINAL PERFORMING LAB [facility] Comment on above: Order Comment: Sammy ariza Type: TISSUE SPECIMEN Ordering Facility: [facility] Address: [address] [place] [address] Result Comment: Diag nostic interpretation performed at [facility], [address] [place] [address] CLIA# [id number] Cream Cheese Maker: Brent Cary M.D. Performed By: #### S #### [facility] CLIA [id number] [address] [place] [address] [place] GROSS DESCRIPTION Normal [facility] Comment on above: Order Comment: Speci men Type: TISSUE SPECIMEN Ordering Facility: [facility] Address: [address] [place] [address] Result Comment: A. B REAST CORE BIOPSY [...] 2023 6:07 PM Gross examination performed at [facility], [address] [place] [address] Performed By: #### S #### [facility] CLIA [id number] [address] [place] [address] [place] US Breast - left limitedon 0 06-21-2023 [facility] CNOVon 05-18-2023 CNOV Office Visit (TRINI ) SELVIN ROSAS ([id number]) 1945 F [place] Date Time Provider Department 05/18/23 1:15 PM MARIN SMITH During your visit today, we [...] HISTORY AND PHYSICAL - BREAST COMPLAINT Selvin Marco Rosas 1945 REFERRING PHYSICIAN: No ref. provider [...] 25 m (more content not included)... [facility] SELVIN ROS[facility] ([id number]) 1945 [facility] Date Time Provider Department 05/18/23 MARIN SMITH [...] direct line for anything further Judith Saxena [employer]visor [employer] Judith Saxena 06/23/2023 3:13 PM Signed Patient called stating she had her breast biopsy recommended by Dr. Smiht and was given results that everything is okay. No cancer. Patient wondering if she should still come in for post op/follow up appointment with Dr. Smith on 06/28/2023. She wanted Dr. Smith's advise before cancelling Please advise Judith Saxena [employer]visor [employer] Marin Smith MD 06/30/2023 1:16 PM Signed [...] Encounter Status:Closed by BOB MARCANO on 03/05/24 Normal [facility] Final Surgical Pathology Rep katherine 06-29-2022 Final Surgical Pathology Report . Pathology Reports Accession: Collected Date/Time: Received Date/Time: Pathologist: [id number] 06/17/2022 12:00 EST 06/20/2022 11:10 EST MARIN LECHUGA MD Final Surgical Pathology Report CORRECTED REPORT: THIS REPORT WAS CREATED TO CORRECT A BILLING ERROR. NO CHANGES HAVE BEEN MADE TO THE DIAGNOSIS. DIAGNOSIS: STOMACH, POLYP: - HYPERPLASTIC POLYP COMMENT: [facility] - [id number] CLINICAL INFORMATION: HIATAL HERNIA WITH GERD Procedure: [...] Electronically Signed by Pathology Report verified by [facility] MARIN LECHUGA Sign out Date: 06/29/2022 17:06 Performing Lab: [address] Pathology Dept [facility] ([place]) Final Surgical Pathology Report . Pathology Reports Accession: Collected Date/Time: Received Date/Time: Pathologist: [id number] 06/17/2022 10:36 EST 06/29/2022 10:36 MARIN AVILA MD Final Surgical Pathology Report DIAGNOSIS: STOMACH, POLYP - - HYPERPLASTIC POLYP. COMMENT: [facility] [id number] CLINICAL INFORMATION: EGD HIATAL HERNIA WITH GERD SPECIMEN: A ANTRAL POLYPS GROSS DESCRIPTION: A. Received in formalin labeled with the patient's name Selvin Rosas, Case #[id number], and Antral polyps are multiple carias tissue fragments aggregating to 1.5 x 0.4 x 0.2 cm. TS-1. Dictated by Lila Esquivel Dictated by MARIN LECHUGA MICROSCOPIC DESCRIPTION: Slides reviewed. Electronically Signed by Pathology Report verified by [facility] MARIN LECHUGA Sign out Date: 06/29/2022 14:35 Performing Lab: [id number] [place] [address] Pathology Dept Normal [facility] ([place]) COMPREHENSIVE METABOLIC PANE Lenny 03-01-2020 Albumin [Mass/Vol] 4.3 g/dL Normal 3.6-5.1 [facility] Comment on above: Performed By: #### 7 714, 01504, 374 #### [facility], [address] [place] [id number] Assembler Seat: Porfirio Cox MD Albumin/Globulin [Mass ratio] 1.7 (calc) Normal 1.0-2.5 [facility] Comment on above: Performed By: #### 3 726, 65023, 601 #### [facility]-[address], [address] [place] [address] Assembler Seat: Porfirio Cox MD ALP [Catalytic activity/Vol] 98 U/L Normal 37-153 [facility] Comment on above: Performed By: #### 7 600, 46982, 899 #### [facility]-[place] [address] Assembler Seat: Porfirio Cox MD ALT [Catalytic activity/Vol] 12 U/L Normal 6-29 [facility] Comment on above: Performed By: #### 7 600, 47284, 899 #### [facility] [address] Assembler Seat: Porfirio Cox MD AST [Catalytic activity/Vol] 13 U/L Normal 10-35 [facility] Comment on above: Performed By: #### 7 600, 54315, 899 #### [facility] [address] Assembler Seat: Porfirio Cox MD Bilirubin [Mass/Vol] 0.3 mg/dL Normal 0.2-1.2 [facility] Comment on above: Performed By: #### 7 600, 70708, 899 #### [facility] [address] Assembler Seat: Porfirio Cox MD Calcium [Mass/Vol] 9.4 mg/dL Normal 8.6-10.4 [facility] Comment on above: Performed By: #### 7 600, 87390, 899 #### [facility] [address] Assembler Seat: Porfirio Cox MD Chloride [Moles/Vol] 104 mmol/L Normal 98-110 [facility] Comment on above: Performed By: #### 7 600, 74873, 899 #### [facility]-[address], [address] [place] [address] Assembler Seat: Porfirio Cox MD CO2 [Moles/Vol] 25 mmol/L Normal 20-32 [facility] Comment on above: Performed By: #### 7 600, 60364, 89 #### [facility]-[address], [address] [place] [address] Assembler Seat: Porfirio Cox MD Creatinine [Mass/Vol] 0.74 mg/dL Normal 0.60-0.93 [facility] Comment on above: Result Comment: For patients >49 years of age, the reference limit for Creatinine is approximately 13% higher for people identified as -Peruvian. Performed By: #### 7 600, , 89 #### [facility]-[address], [address] [place] [address] Assembler Seat: Porfirio Cox MD eGFR NON-AFR. BURUNDIAN 80 mL/min/1.73m2 Normal > OR = 60 [facility] Comment on above: Performed By: #### 7 600, , #### [facility]-[address], [address] [place] [address] Assembler Seat: Porfirio Cox MD GFR/1.73 sq M predicted among blacks MDRD (S/P/Bld) [Vol rate/Area] 93 mL/min/{1.73_m2} Normal > OR = 60 [facility] Comment on above: Performed By: #### 7 600, 87311, 89 #### [facility]-[address], [address] [place] [address] Assembler Seat: Porfirio Cox MD Globulin (S) [Mass/Vol] 2.6 g/dL (calc) Normal 1.9-3.7 [facility] Comment on above: Performed By: #### 7 600, 50092, 89 #### [facility]-[address], [address] [place] [address] Assembler Seat: Porfirio Cox MD Glucose [Mass/Vol] 100 mg/dL High 65-99 [facility] Comment on above: Result Comment: Fasting reference interval For someone without known diabetes, a glucose value between 100 and 125 mg/dL is consistent with prediabetes and should be confirmed with a follow-up test. Performed By: #### 7 600, 46348, 89 #### [facility]-[address], [address] [place] [address] Assembler Seat: Porfirio Cox MD Potassium [Moles/Vol] 4.1 mmol/L Normal 3.5-5.3 [facility] Comment on above: Performed By: #### 7 600, 91272, 899 #### [facility]-[address], [address] [place] [address] Assembler Seat: Porfirio Cox MD Protein [Mass/Vol] 6.9 g/dL Normal 6.1-8.1 [facility] Comment on above: Performed By: #### 7 600, 62690, 899 #### [facility]-[address], [address] [place] [address] Assembler Seat: Porfirio Cox MD Sodium [Moles/Vol] 140 mmol/L Normal 135-146 [facility] Comment on above: Performed By: #### 7 600, 39950, 899 #### [facility]-[address], [address] [place] [address] Assembler Seat: Porfirio Cox MD Urea nitrogen [Mass/Vol] 20 mg/dL Normal 7-25 [facility] Comment on above: Performed By: #### 7 600, 89018, 899 #### [facility] [address] Assembler Seat: Porfirio Cox MD Urea nitrogen/Creatinine [Mass ratio] NOT APPLICABLE Normal 6-22 [facility] Comment on above: Performed By: #### 7 600, 86713, 899 #### [facility]-[address], [address] [place] [address] Assembler Seat: Porfirio Cox MD LIPID PANEL, STANDARD 11-0 Cholesterol [Mass/Vol] 232 mg/dL High <200 [facility] Comment on above: Performed By: #### 7 600, 49111, 899 #### [facility]-[address], [address] [place] [address] Assembler Seat: Porfirio Cox MD Cholesterol in HDL [Mass/Vol] 56 mg/dL Normal > OR = 50 [facility] Comment on above: Performed By: #### 7 600, 79563, 899 #### [facility], [address] [place] [address] Assembler Seat: Porfirio Cox MD Cholesterol in LDL [Mass/Vol] [...] Friedewald equation in the estimation of LDL-C. rOion SS et al. JOHNNY. 2013;310(19): 0259-0419 (http://education.BPT/faq/HXH829) Performed By: #### 7 600, 43762, 897 #### [facility], [address] [place] [address] Assembler Seat: Porfirio Cox MD Cholesterol.total/C holesterol in HDL [Mass ratio] 4.1 (calc) Normal <5.0 [facility] Comment on above: Performed By: #### 7 600, 01884, 890 #### [facility], [address] [place] [address] Assembler Seat: Porfirio Cox MD NON HDL CHOLESTEROL 176 mg/dL (calc) High <130 [facility] Comment on above: Result Comment: For patients with diabetes plus 1 major ASCVD risk factor, treating to a non-HDL-C goal of <100 mg/dL (LDL-C of <70 mg/dL) is considered a therapeutic option. Performed By: #### 7 600, 76374, 899 #### [facility], [address] [place] [address] Assembler Seat: Porfirio Cox MD Triglyceride [Mass/Vol] 147 mg/dL Normal <150 [facility] Comment on above: Performed By: #### 7 600, 78848, 899 #### [facility], [address] [place], [place] [id number] Assembler Seat: Porfirio Cox MD TSHon 03-01-2020 TSH Qn 2.35 m[IU]/L Normal 0.40-4.50 [facility] Comment on above: Performed By: #### 7 600, 83472, 899 #### [facility]-[address], [address] [place] [address] Assembler Seat: Porfirio Cox MD Vital Signs Date Time Vital Sign Value Performing Clinician Solis lopez 12-13-2024 08:47-0400 Body height 170.18 cm [employer] Work Phone: [facility] 12-13-2024 08:47-0400 Body mass index (BMI) [Ratio] 37.4 kg/m2 [employer] Work Phone: [facility] 12-13-2024 08:47-0400 Body weight 108.4 kg [employer] Work Phone: [facility] 12-13-2024 08:47-0400 Diastolic blood pressure 73 mm[Hg] [employer] Work Phone: [facility] 12-13-2024 08:47-0400 Heart rate 92 /min [employer] Work Phone: [facility] 12-13-2024 08:47-0400 Respiratory rate 16 /min [employer] Work Phone: [facility] 12-13-2024 08:47-0400 Systolic blood pressure 141 mm[Hg] [employer] Work Phone: [facility] 12-03-2024 07:37-0400 Body mass index (BMI) [Ratio] 37.5 kg/m2 [employer] Work Phone: [facility] 12-03-2024 07:37-0400 Body temperature 97.8 [degF] [employer] Work Phone: [facility] 12-03-2024 07:37-0400 Body weight 108.86 kg Sisi FOUNDD PA-C Work Phone: [facility] 12-03-2024 07:37-0400 Diastolic blood pressure 74 mm[Hg] Sisi Molena PA-C Work Phone: [facility] 12-03-2024 07:37-0400 Heart rate 90 /min Sisi Molena PA-C Work Phone: [facility] 12-03-2024 07:37-0400 Respiratory rate 20 /min Sisi Molena PA-C Work Phone: [facility] 12-03-2024 07:37-0400 SaO2% (BldA) [Mass fraction] 94 % Sisi Molena PA-C Work Phone: [facility] 12-03-2024 07:37-0400 Systolic blood pressure 134 mm[Hg] Sisi Molena PA-C Work Phone: [facility] 09-03-2024 07:25-0400 Body mass index (BMI) [Ratio] 37.3 kg/m2 Sisi Molena PA-C Work Phone: [facility] 09-03-2024 07:25-0400 Body temperature 97 [degF] Sisi Molena PA-C Work Phone: [facility] 09-03-2024 07:25-0400 Body weight 107.95 kg Sisi Molena PA-C Work Phone: [facility] 09-03-2024 07:25-0400 Diastolic blood pressure 72 mm[Hg] Sisi Molena PA-C Work Phone: [facility] 09-03-2024 07:25-0400 Heart rate 86 /min Sisi Molena PA-C Work Phone: [facility] 09-03-2024 07:25-0400 Respiratory rate 20 /min Sisi Molena PA-C Work Phone: [facility] 09-03-2024 07:25-0400 SaO2% (BldA) [Mass fraction] 98 % Sisi FOUNDD PA-C Work Phone: [facility] 09-03-2024 07:25-0400 Systolic blood pressure 145 mm[Hg] Sisi FOUNDD PA-C Work Phone: [facility] 07-10-2024 05:24-0400 Body height 170.18 cm [employer] PA-C Work Phone: [facility] 07-10-2024 05:24-0400 Body mass index (BMI) [Ratio] 37.4 kg/m2 Sisi FOUNDD PA-C Work Phone: [facility] 07-10-2024 05:24-0400 Body temperature 97.1 [degF] [employer] PA-C Work Phone: [facility] 07-10-2024 05:24-0400 Body weight 108.4 kg [employer] PA-C Work Phone: [facility] 07-10-2024 05:24-0400 Diastolic blood pressure 77 mm[Hg] Sisi FOUNDD PA-C Work Phone: [facility] 07-10-2024 05:24-0400 Heart rate 89 /min Sisi FOUNDD PA-C Work Phone: [facility] 07-10-2024 05:24-0400 Respiratory rate 20 /min [employer] PA-C Work Phone: [facility] 07-10-2024 05:24-0400 SaO2% (BldA) [Mass fraction] 95 % Sisi FOUNDD PA-C Work Phone: [facility] 07-10-2024 05:24-0400 Systolic blood pressure 150 mm[Hg] [employer] PA-C Work Phone: [facility] 04-14-2022 09:00-0500 Body height 170.18 cm PA-C [employer] PA Work Phone: [facility] 04-14-2022 09:00-0500 Body mass index (BMI) [Ratio] 37.4 kg/m2 PA-C Sisi FOUNDD PA Work Phone: [facility] 04-14-2022 09:00-0500 Body temperature 96.5 [degF] PA-C Sisi FOUNDD PA Work Phone: [facility] 04-14-2022 09:00-0500 Body weight 108.4 kg PA-C Sisi FOUNDD PA Work Phone: [facility] 04-14-2022 09:00-0500 Diastolic blood pressure 74 mm[Hg] PA-C Sisi FOUNDD PA Work Phone: [facility] 04-14-2022 09:00-0500 Heart rate 88 /min PA-C Sisi FOUNDD PA Work Phone: [facility] 04-14-2022 09:00-0500 Respiratory rate 20 /min PA-C [employer] PA Work Phone: [facility] 04-14-2022 09:00-0500 SaO2% (BldA) [Mass fraction] 94 % PA-C [employer] PA Work Phone: [facility] 04-14-2022 09:00-0500 Systolic blood pressure 156 mm[Hg] PA-C [employer] PA Work Phone: [facility] 01-18-2022 09:29-0400 Body mass index (BMI) [Ratio] 35.7 kg/m2 Dr. Kwame Colvin Work Phone: [facility] Work Phone: 01-18-2022 09:29-0400 Body weight 106.[address] Kwame Colvin Work Phone: [facility] Work Phone: 01-18-2022 09:29-0400 Diastolic blood pressure 82 mm[Hg] Dr. Kwame Colvin Work Phone: [facility] Work Phone: 01-18-2022 09:29-0400 Heart rate 86 /min Dr. Kwame Colvin Work Phone: [facility] Work Phone: 01-18-2022 09:29-0400 Respiratory rate 16 /min Dr. Kwame Colvin Work Phone: [facility] Work Phone: 01-18-2022 09:29-0400 Systolic blood pressure 149 mm[Hg] Dr. Kwame Colvin Work Phone: [facility] Work Phone: 07-20-2021 08:44-0400 Body height 172.[address] Kwame Colvin Work Phone: [facility] Work Phone: 07-20-2021 08:44-0400 Body mass index (BMI) [Ratio] 35.8 kg/m2 Dr. Kwame Colvin Work Phone: [facility] Work Phone: 07-20-2021 08:44-0400 Body temperature 97.6 [degF] Dr. Kwame Colvin Work Phone: [facility] Work Phone: 07-20-2021 08:44-0400 Body weight 106.[address] Kwame Colvin Work Phone: [facility] Work Phone: 07-20-2021 08:44-0400 Diastolic blood pressure 73 mm[Hg] Dr. Kwame Colvin Work Phone: [facility] Work Phone: 07-20-2021 08:44-0400 Heart rate 78 /min Dr. Kwame Colvin Work Phone: [facility] Work Phone: 07-20-2021 08:44-0400 Respiratory rate 15 /min Dr. Kwame Colvin Work Phone: [facility] Work Phone: 07-20-2021 08:44-0400 SaO2% (BldA) [Mass fraction] 94 % Dr. Kwame Colvin Work Phone: [facility] Work Phone: 07-20-2021 08:44-0400 Systolic blood pressure 184 mm[Hg] Dr. Kwame Colvin Work Phone: [facility] Work Phone: 07-06-2021 09:50-0500 Body mass index (BMI) [Ratio] 35.6 kg/m2 Dr. Kwame Colvin Work Phone: [facility] Work Phone: 07-06-2021 09:50-0500 Body temperature 98.2 [degF] Dr. Kwame Colvin Work Phone: [facility] Work Phone: 07-06-2021 09:50-0500 Body weight 106.[address] Kwame Colvin Work Phone: [facility] Work Phone: 07-06-2021 09:50-0500 Diastolic blood pressure 79 mm[Hg] Dr. Kwame Colvin Work Phone: [facility] Work Phone: 07-06-2021 09:50-0500 Heart rate 97 /min Dr. Kwame Colvin Work Phone: [facility] Work Phone: 07-06-2021 09:50-0500 Respiratory rate 15 /min Dr. Kwame Colvin Work Phone: [facility] Work Phone: 07-06-2021 09:50-0500 SaO2% (BldA) [Mass fraction] 96 % Dr. Kwame Colvin Work Phone: [facility] Work Phone: 07-06-2021 09:50-0500 Systolic blood pressure 147 mm[Hg] Dr. Kwame Colvin Work Phone: [facility] Work Phone: Encounters Encounter Date Encounter Type Care Provider Facility Start: 01-16-2025 ambulatory Eloy Villatoro Facility:[facility] Start: 12-13-2024 End: 12-13-[address] 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 Latasha ROJAS -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 Yannick mckeon DO -[facility] Start: 07-24-2024 End: 07-24-2024 ambulatory [facility] PA-C Work Phone: [facility] Work Phone: Start: 07-24-2024 End: 07-24-2024 Patient encounter procedure LATESHA Hernandez -Pulmonary Services/Neurology Work Phone: Start: 07-24-2024 End: 07-24-2024 ambulatory La Hernandez Facility:[facility] Start: 07-10-2024 End: 07-10-2024 Patient encounter procedure LATESHA Hernandez -[facility] Work Phone: Start: 07-10-2024 End: 07-10-2024 ambulatory Sisi York INDIGO [facility] Start: 03-13-2024 End: 03-13-2024 ambulatory [facility] Start: 03-07-2024 End: 03-07-2024 ambulatory [facility] Start: 12-11-2023 End: 12-11-2023 ambulatory [facility] Start: 12-01-2023 End: 12-01-2023 ambulatory [facility] Start: 11-28-2023 End: 11-28-2023 ambulatory [facility] Start: 11-22-2023 End: 11-22-2023 ambulatory [facility] Start: 11-10-2023 End: 11-10-2023 ambulatory [facility] Start: 10-25-2023 End: 10-25-2023 ambulatory [facility] Start: 06-22-2023 Telephone encounter Ashley Sánchez RN Work Phone: Mammography Comment on above: Results Start: 06-21-2023 ambulatory [facility] Fac ility:[facility] Start: 06-21-2023 End: 06-21-2023 Subsequent hospital visit by physician Procedure [facility] Work Phone: Mammography Comment on above: Abnormal finding on radiological examination of breast [R92.8] Start: 05-18-2023 End: 03-05-2024 Telephone encounter Marin Smith MD Work Phone: General Surgery Comment on above: Appointment Start: 05-18-2023 End: 05-18-2023 ambulatory KWAME COLVIN Facility:[facility] Start: 07-14-2022 Non-patient / Non-visit PA-C [place] York PA Work Phone: [facility] Start: 07-14-2022 End: 07-14-2022 ambulatory PA-C Sisi FOUNDD PA Work Phone: [facility] Work Phone: Start: 07-14-2022 End: 07-14-2022 Patient encounter procedure PA-C Sisi Molena PA Work Phone: [facility]-Pulmonary Services/Neurology Start: 06-17-2022 End: 06-22-[address] DAVID MARCANO MD Facility: Start: 04-14-2022 End: 04-14-2022 Patient encounter procedure PA-C Sisi FOUNDD PA Work Phone: [facility]-Pulmonary Medicine [facility] Start: 01-27-2022 Non-patient / Non-visit Dr. Jurgen Colvin Work Phone: [facility] Start: 01-27-2022 End: 01-27-[address] Kwame Colvin Work Phone: [facility] Work Phone: Start: 01-27-2022 End: 01-27-[address] Kwame Colvin Work Phone: [facility]-Cardiovascula r Services Start: 01-18-2022 End: 01-18-[address] Kwame Colvin Work Phone: [facility] Start: 07-20-2021 End: 07-20-[address] Kwame Colvin Work Phone: [facility] Start: 07-15-2021 End: 07-15-[address] Kwame Colvin Work Phone: [facility]-Outpatient Breast Imaging Start: 07-06-2021 End: 07-06-[address] Kwame Colvin Work Phone: [facility] Start: 03-14-[address] Stuart Colvin Work Phone: [facility] Procedures Date Procedure Procedure Detail Performing Clinician Start: 10-15-2024 Cardiovascular stres s test using pharmacologic stress agent Sisi York PA-C Work Phone: Start: 06-21-2023 Bx breast w/device 1 st lesion stereotactic guid Eddie Jessica MD, PhD Work Phone: Start: 06-21-2023 Digital breast tomos ynthesis bilateral Sisi D FOUNDD PA-C Work Phone: Start: 06-21-2023 Us breast uni real t cole with image limited Eddie Jessica MD, PhD Work Phone: Start: 07-15-[address] Kwame Colvin Work Phone: Start: 07-15-[address] Kwame Colvin Work Phone: Plan of Treatment Date Care Activity Detail Author Start: 12-13-2024 Evaluation of diagno stic study results [facility] Start: 04-10-2024 End: 04-10-2024 Patient encounter procedure Mammogram Comment on above: Comp- Rt 6 mo f/u bi opsy of calcs, benign follo wup Start: 12-31-2023 Covid-19 Vaccine () Covid-19 Vaccine () [facility] Start: 12-31-2023 Influenza vaccination Influenza Vacc ine (#1) [facility] Start: 05-01-2023 Advance Directive Discussion Advance Directive Discussion [facility] Start: 05-01-2023 Depression Assessment Depression Ass essment [facility] Start: 12-30-2022 Covid-19 Vaccine ( season) Covid-19 Vaccine ( season) [facility] Start: 11-14-2021 Urine microalbumin profile DTaP,Tdap,Td Vaccine (2 - Td or Tdap) [facility] Start: 2021 RSV Vaccine (1 - 1-d ose 75+ series) RSV Vaccine (1 - 1-dose 75+ series) [facility] Start: 03-08-2021 Shingrix Vaccine (3 of 3) Shingrix Vaccine (3 of 3) [facility] Start: 09-14-2011 Screening for osteoporosis Bone Density Screening [facility] Start: 2006 RSV Vaccine (1 - 1-d ose 60+ series) RSV Vaccine (1 - 1-dose 60+ series) [facility] Start: 09-14-1991 Diabetes Screening Diabetes Screenin g [facility] Start: 1964 Anxiety Screening Anxiety Screening [facility] Start: 1964 Depression Screening Depression Scre ening [facility] Start: 1964 Hepatitis C screening Hepatitis C [facility] Exercise tolerance test [facility] SURGICAL PATHOLOGY [facility] Work Phone: Comment on above: Release Upon Orderin g for 1 Occurrences starting 06/21/2023, [facility] Immunization Date Immunization Notes Care Provider Shamar menendez 02-15-2023 influenza virus vacc ine, unspecified formulation Marin Smith MD Work Phone: [facility] Payers Date Payer Category Payer Self-pay [id number] 2011 Medicare MEDICARE MEDICAR E A AND B [id number] 2011-Present [phone] [place] [address] Medicare [id number] 2011 Medicare [id number] 2001 Unknown ANTHEM ANTHEM BC BS FEP PPO [id number] 2001-Present [phone] [address] [place] [address] PPO [id number] 2001 Unknown [id number] 1946 Unknown [id number] [id number] 1946 Unknown [id number] 2.16.840.1.841066.3.579.2.65 1946 Unknown [id number] 2.16.840.1.393265.3.579.2.651 1946 Unknown [id number] 2.16.840.1.129482.3.579.2.65 1946 Unknown [id number] 2.16.840.1.491599.3.579.2.651 1946 Unknown [id number] 2.16.840.1.695263.3.579.2.651 1946 Unknown [id number] 2.16.840.1.250107.3.579.2.651 1946 Unknown [id number] 2.16.840.1.135493.3.579.2.651 1946 Unknown [id number] 2.16.840.1.211640.3.579.2.65 1946 Unknown [id number] 2.16.840.1.181579.3.579.2.651 Unknown [id number] 2.16.840.1.420224.3.579.2.462 Unknown [id number] 2.16.840.1.517571.3.579.2.462 Unknown [id number] 2.16.840.1.317109.3.579.2.462 Unknown [id number] 2.16.840.1.262463.3.579.2.462 Unknown [id number] Unknown [id number] Unknown [id number] Unknown [id number] Unknown [id number] Social History Date Type Detail Facility Start: 01-19-2021 End: 04-14-2022 Tobacco smoking status [facility] Unknown if ever smoked [facility] Start: 1945 Sex Assigned At Female [facility] Start: 05-18-2023 End: 05-22-2023 Tobacco smoking status VTIS Ex-smoker [facility] Start: 05-01-1976 End: 05-01-2006 History of tobacco use Current smoker [facility] Start: 05-01-1976 End: 05-01-2006 History of tobacco use Cigarette Smoker [facility] Start: 05-18-2023 Cigarettes smoked current (pack per day) - Reported 2 [facility] Start: 05-18-2023 Tobacco use and exposure Smokeless tobacco non-user [facility] Start: 05-18-2023 Alcohol intake Current drinke r of alcohol (finding) [facility] Start: 05-18-2023 Tobacco use panel [facility] National Score (1-10 0), lower number is lower risk 80 [facility] Start: 12-09-2013 Alcohol Comment occasional glass of wine [facility] Start: 06-05-2023 Gender identity Identifies as female gender (finding) [facility] Start: 06-05-2023 Sexual orientation Heterosexual (fin ding) [facility] Start: 07-29-2024 Sex Female (finding) [facility] Clinical Notes 07-14-2022 to 09-03-2024 Note Date & Type Note Facility 09-03-2024 Evaluation note Diagnosis Onset Date Resolution Cough acute September 03, 2024 8:40am Obesity chronic September 03, 2024 8:40am Shortness of breath noneactive September 032024 8:40am Cough acute December 03 8:57am Obesity chronic December 03 8:57am Shortness of breath noneactive Aug2024 8:57am [facility] Work Phone: 1(533) 932-318203-12-2025 Evaluation note* Diagnosis Onset Date Resolution Status Admit Date Cough acute July 10 10:32am Obesity chronic July 10 10:32am Shortness of breath noneactive July 10, 2024 10:32am [facility] Work Phone: 1(229) 854-454603-12-2025 Evaluation note* Diagnosis Onset Date Resolution Status Admit Date Cough acute July 10 10:32am Obesity chronic July 10 10:32am Shortness of breath noneactive July 10, 2024 10:32am Cough acute September 03, 2024 8:40am Obesity chronic September 03, 2024 8:40am Shortness of breath noneactive September 032024 8:40am [facility] Work Phone: 1(955) 647-945403-01-2024 Telephone encounter Note* Telephone Encounter - Marin Smith MD - 06/30/2023 1:15 PM EST Patient does not need to see me if she does not want to She will need a 6-month follow-up mammogram [facility]03-01-2024 Miscellaneous Notes* Telephone Encounter - Marin Smith [...] advise before cancelling Please advise Judith Saxena Supervisor [employer] * Telephone Encounter - Judith Saxena - [...] direct line for anything further Judith Saxena Supervisor [employer] documented [facility] Telephone encounter Note * Telephone Encounter - [...] advise before cancelling Please advise Judith Saxena Supervisor [employer] [facility]02-22-2024 Miscellaneous Notes* Telephone Encounter - Ashley Sánchez, RN - 06/22/2023 1:42 PM EST Called patient to notify the breast pathology results were benign per Dr. Lr. Informed patient a 6 month follow up is recommended. Patient verbalized understanding. documented in this encounterPrem[facility]-2024 NoteHNO ID: [id number] Author: PEDRO SOLANO CT Service: Radiology Author [...] PATIENT PRESENTS WITH AN IMPLANTABLE OR ATTACHED OIL WELL GUN PERFORATOR OPERATOR: No RADIOLOGY DEPARTMENT: Ultrasound PERIPHERAL IV DATA: Not applicable SIGNED BY: EULALIA Rubalcava June 21, 2023 10:08 AMC[facility] [id number] History of Present illness Narrative* Pedro Solano [...] PATIENT PRESENTS WITH AN IMPLANTABLE OR ATTACHED OIL WELL GUN PERFORATOR OPERATOR: No RADIOLOGY DEPARTMENT: Ultrasound PERIPHERAL IV DATA: Not applicable SIGNED BY: EULALIA Rubalcava June 21, 2023 10:08 AM documented in this encounterPrem[facility]-2024 NoteHNO ID: [id number] Author: EDDIE JESSICA MD, PhD Service: ? [...] or 3D. Right mammogram dated 03/29/2023 is marked.[facility]01-18-2024 Telephone encounter Note* Telephone Encounter - Judith [...] direct line for anything further Judith Saxena Supervisor [employer] [facility]01-18-2024 NoteHNO ID: [id number] Author: MARIN SMITH MD Service: ? Author [...] entered by the nurse and reviewed by me Nursing Notes: Samreen Colvin LPN 05/18/2023 1:22 [...] stool control, and denies (more content not included)...[facility]03-16-[facility]* Diagnosis Onset Date Resolution Status Left breast lump acute History of right breast cancer chronic Left breast lump acute History of right breast cancer chronic [facility] Work Phone: Evaluation note* Diagnosis Onset Date Resolution Status SÁNCHEZ (dyspnea on exertion) ac luh Essential hypertension chron ic Paroxysmal supraventricular tachycardia chronic [facility] Work Phone: Evaluation note* Diagnosis Onset Date Resolution Status Obesity chronic Shortness of breath noneacti ve [facility] Work Phone: Evaluation note* Diagnosis Mass of upper outer quadrant of right breast documented in this encounter [facility] for referral (narrative)No reason for referral [facility] Work Phone: Reason for visit Narrative* Diagnostic Procedure Only (Routine) - Closed Specialty Diagnoses / Procedures Referred By Contac t Referred To Contact [facility] Diagnoses Abnormal finding on radiological examination of breast Procedures SHAKIRA STEREO BX BREAST RIGHT BX BREAST W/DEVICE 1ST LESION STEREOTACTIC GUID Eddie Jessica MD, PhD [address] [place] [address] [facility] [address] [place], [place] [phone] Referral ID Status Reason Start Date Expiration Date V isits Requested Visits Authorized [id number] Closed Auto-Generate d Referral 05/22/2023 06/20/2024 1 1 [facility] for visit Narrative* Diagnostic Procedure Only (Routine) - Closed Specialty Diagnoses / Procedures Referred By Contac t Referred To Contact [facility] Diagnoses Abnormal finding on radiological examination of breast Procedures US BREAST LTD LEFT US BREAST UNI REAL TIME WITH IMAGE LIMITED Eddie Jessica MD, PhD [address] [place] [address] [facility] [address] [place] [id number] Referral ID Status Reason Start Date Expiration Date V isits Requested Visits Authorized [id number] Closed Auto-Generate d Referral 05/22/2023 06/20/2024 1 1 [facility] Summary Purpose Family History No Family History [...] No August 02, 2017 10:53am Power of Aperture Mask Etcher No August 02 10:53am Advance Directive Response Recorded Date/ Time Advance Directives No December 11:32am Living Will No January 28, 2022 11:32am Power of Aperture Mask Etcher No December 11:32am Advance Directive Response Recorded Date/ Time Advance Directives No December 11:32am Advance Directive Response Recorded Date/ Time Living Will No January 28, 2022 11:32am Do you have a Healthcare Power of Aperture Mask Etcher? No January 28, 2022 11:32am Advance Directives No December 11:32am Chief Complaint [...] 10: 32am R05.9 - Cough, unspecified July 24 9:01am Reason for Visit Admit Date Cough July 10, 2024 10: 32am Obesity July 10, 2024 10: 32am Shortness of breath July 10, 2024 10: 32am Chief Complaint Admit Date Over due for f/u July 10, 2024 10: 32am R05.9 - Cough, unspecified July 24 9:01am R05.9 - Cough, unspecified July 24 9:17am 6 wk FU September 03, 2024 8:40am OTHER FORMS OF DYSPNEA October 15, 2024 6 :41am Reason for Visit Admit Date Cough July 10, 2024 10: 32am Obesity July 10, 2024 10: 32am Shortness of breath July 10, 2024 10: 32am Cough September 03, 2024 8:40am Obesity September 03, 2024 8:40am Shortness of breath September 03, 2024 8:40am Chief Complaint Admit Date 6 wk FU September 03, 2024 8:40am OTHER FORMS OF DYSPNEA October 15, 2024 6 :41am 3 M FU December 03, 2024 8:5 7am Reason for Visit Admit Date Cough September 03, 2024 8:40am Obesity September 03, 2024 8:40am Shortness of breath September 03, 2024 8:40am Cough December 03, 2024 8:5 7am Obesity December 03, 2024 8:5 7am Shortness of breath December 03, 2024 8:5 7am Chief Complaint Admit Date 6 wk FU September 03, 2024 8:40am OTHER FORMS OF DYSPNEA October 15, 2024 6 :41am 3 M FU December 03, 2024 8:5 7am 1 Y FU December 13, 2024 8: 39am Additional Source Comments INFORMATION SOURCE (unrecogn ized section and content) DATE CREATED AUTHOR 02/29/2020 [facility] DATE CREATED AUTHOR AUTHOR'S ORGANIZ ATION 03/20/2023 [facility] DATE CREATED AUTHOR AUTHOR'S ORGANIZ ATION 06/28/2023 [facility] DATE CREATED AUTHOR AUTHOR'S ORGANIZ ATION 03/07/2024 [facility] DATE CREATED AUTHOR AUTHOR'S ORGANIZ ATION 10/04/2024 [facility] DATE CREATED AUTHOR AUTHOR'S ORGANIZ ATION 01/12/2025 [facility] Goals (unrecognized section and content) Goals [...] Dr. Kwame Colvin MD Family Provider Active Sisi SOOD PARocco Primary Care Provider Active Team Status: Inactive Member Role Status Dates Sisi SOOD, PA-C Primary Care Provider, Referri ng Provider Active Dr. George Fraga MD Attending Provider Active Team Status: Active Member Role Status Dates Sisi Molena AMIE SOOD Primary Care Provider Active Dr. George Fraga MD Attending Provider , Referring Provider, Other Provider Active Team Status: Inactive Member Role Status Dates Sisi Molena INDIGO PA-C Primary Care Provider Active Dr. George Fraga MD Attending Provider, Referring Pr ovider Active Control Specialist Relationship Specialty Start Date End Date Kwame Colvin MD PCP - General Family Medicine 12/09/13 Zahra Briones MD [address] [place] [address] Physician Radiation Oncology 08/04/15 Control Specialist Relationship Specialty Start Date End Date Kwame Colvin MD PCP - General Family Medicine 12/09/13 Zahra Briones MD [address] [place] [address] Physician Radiation Oncology 08/04/15 Control Specialist Relationship Specialty Start Date End Date Kwame Colvin MD PCP - General Family Medicine 12/09/13 Zahra Briones MD [address] [place] [address] Physician Radiation Oncology 08/04/15 Control Specialist Relationship Specialty Start Date End Date Kwame Colvin MD PCP - General Family Medicine 12/09/13 Zahra Briones MD [address] [place] [address] Physician Radiation Oncology 08/04/15 Team Status: Active Member Role Status Dates Sisi York PA, PA-C Primary Care Provider Active Team Status: Inactive Member Role Status Dates Sisi York PA, PA-C Primary Care Provider Active Start: July 10, 2024 End: July 10, 2024 Sisi Jaylen PA, PA-C Referring Provider Active Start: July 10, 2024 End: July 10, 2024 La Hernandez NP-C Attending Provider Active Start: July 10, 2024 End: July 10, 2024 Team Status: Inactive Member Role Status Dates Sisi York PA, PA-C Primary Care Provider Active Start: July 24, 2024 End: July 24, 2024 BRIANNA Bales Attending Provider Active Start: July 24, 2024 End: July 24, 2024 BRIANNA Bales Referring Provider Active Start: July 24, 2024 End: July 24, 2024 Team Status: Active Member Role Status Dates Sisi York PA, PA-C Primary Care Provider Active Start: July 24, 2024 Dr. Yannick Colvin , Attending Provider Active S tart: July 24, 2024 BRIANNA Bales Referring Provider Active Start: July 24, 2024 Team Status: Inactive Member Role Status Dates Sisi York PA, PA-C Primary Care Provider Active Start: September 03, 2024 End: September 03, 2024 Sisivalentino York PA, PA-C Referring Provider Active Start: September 03, 2024 End: September 03, 2024 AMANDA BalesC Attending Provider Active Start: September 03, 2024 End: September 03, 2024 Team Status: Inactive Member Role Status Dates Sisi York PA, PA-C Primary Care Provider Active Start: October 15, 2024 End: October 15, 2024 Gino Valdez GEAR REPAIR SUPERVISOR, GEAR REPAIR SUPERVISOR-C Attending Provider Active S tart: October 15, 2024 End: October 15, 2024 Gino Valdez GEAR REPAIR SUPERVISOR, GEAR REPAIR SUPERVISOR-C Referring Provider Active S tart: October 15, 2024 End: October 15, 2024 Team Status: Active Member Role Status Dates Sisi York PA, PA-C Primary Care Provider Active Start: October 15, 2024 Dr. Eloy Villatoro MD Attending Provider Active S tart: October 15, 2024 Team Status: Active Member Role/Relationship Status Dates Sisi York PA, PA-C Primary Care Provider Active Team Status: Inactive Member Role/Relationship Status Dates Sisi York PA, PA-C Primary Care Provider Active Start: September 03, 2024 End: September 03, 2024 Sisi York PA, PA-C Referring Provider Active Start: September 03, 2024 End: September 03, 2024 La Hernandez NP-C Attending Provider Active Start: September 03, 2024 End: September 03, 2024 Team Status: Inactive Member Role/Relationship Status Dates Sisi York PA, PA-C Primary Care Provider Active Start: October 15, 2024 End: October 15, 2024 Gino Valdez GEAR REPAIR SUPERVISOR, GEAR REPAIR SUPERVISOR-C Attending Provider Active S tart: October 15, 2024 End: October 15, 2024 Gino Valdez GEAR REPAIR SUPERVISOR, GEAR REPAIR SUPERVISOR-C Referring Provider Active S tart: October 15, 2024 End: October 15, 2024 Team Status: Active Member Role/Relationship Status Dates Sisi York PA, PA-C Primary Care Provider Active Start: October 15, 2024 Dr. Eloy Villatoro MD Attending Provider Active S tart: October 15, 2024 Team Status: Inactive Member Role/Relationship Status Dates Sisi York PA, PA-C Primary Care Provider Active Start: December 03, 2024 End: December 03, 2024 Sisi York PA, PA-C Referring Provider Active Start: December 03, 2024 End: December 03, 2024 La Hernandez NP-C Attending Provider Active Start: December 03, 2024 End: December 03, 2024 Team Status: Inactive Member Role/Relationship Status Dates Sisi York PA, PA-C Primary Care Provider Active Start: December 13, 2024 End: December 13, 2024 Sisi York PA, PA-C Referring Provider Active Start: December 13, 2024 End: December 13, 2024 Dr. Eloy Villatoro MD Attending Provider Active S tart: December 13, 2024 End: December 13, 2024 Source Comments (unrecognize d section and content) In the event this informatio n is protected by the Federal Confidentiality of Alcohol and Drug Abuse Patient Records regulations: The Federal rules restrict any use of the information to criminally investigate or prosecute any alcohol or drug abuse patient.[facility] the event this information is protected by the Federal Confidentiality of Alcohol and Drug Abuse Patient Records regulations: The Federal rules restrict any use of the information to criminally investigate or prosecute any alcohol or drug abuse patient.[facility] the event this information is protected by the Federal Confidentiality of Alcohol and Drug Abuse Patient Records regulations: The Federal rules restrict any use of the information to criminally investigate or prosecute any alcohol or drug abuse patient.[facility] the event this information is protected by the Federal Confidentiality of Alcohol and Drug Abuse Patient Records regulations: The Federal rules restrict any use of the information to criminally investigate or prosecute any alcohol or drug abuse patient.[facility] Inactive Administered Medications - up to 3 [...] BE BASED ON THE PRIMARY CLINICAL RECORDS. [facility]. provides no warranty or guarantee of the accuracy or completeness of information in this document.
--- NOTE | 2025-01-16 07:43 | PCM.CONS.C ---
Assessment & Plan Assessment/Plan (1) SÁNCHEZ (dyspnea on exertion): PLAN: (1) Shortness of breath: Plan: She continues to complain of shortness of breath. There has been improvement in her lung functioning's when compared to previous PFT from July 14, 2022. Recent stress testing was within normal limits. There has been an increase in the pulmonary artery systolic pressure when compared to the last echocardiogram from 2021 which showed a pulmonary artery systolic pressure of 24 mmHg. The most recent echocardiogram shows a pulmonary artery pressure of 38 mmHg. This could be contributing to her shortness of breath. At this time my recommendation will be for her to undergo a right and left heart catheterization to see whether 1 can decide for this little further. Have discussed this with her the risk benefits alternative she understands and agrees to proceed. Depending on the findings further recommendations will be made. HPI Consult Data Date of Consult: 01/16/25 HPI Narrative HPI Narrative: SELVIN ROSAS, is a 79 F who presents for evaluation of shortness of breath. She does have a history of hyperlipidemia, PSVT, hyperlipidemia, breast carcinoma with no chemotherapy. Her major problem at this time is shortness of breath which she says that she has had for almost 2 years. During her last visit she had complained of some atypical chest discomfort and she was directed and had her gallbladder removed. She continues to be short of breath. She did have a pharmacologic stress test in September of this year which demonstrated no evidence of ischemia and her echocardiogram demonstrated preserved ejection fraction but pulmonary artery systolic pressure was 38 mmHg which was increased from 24 mmHg from 3 years ago. She is very concerned about the above. She had seen a spool worker and had pulmonary function tests which demonstrated large airway disease. She has not had any chest pain to suggest angina. No dizziness no diaphoresis no near-syncope or syncope. Her physical exam today demonstrates clear lung conklin regular rate and rhythm no pedal edema electrocardiogram demonstrates sinus rhythm with sinus arrhythmia and a rate of 89 bpm. [facility] Medical History Essential hypertension Cyst of left breast Left breast lump Paroxysmal supraventricular tachycardia Obesity Cyst of right breast Lump of right breast History of right breast cancer Axillary lymphadenopathy Hiatal hernia Cataract Arthritis Gastric ulcer First degree AV block Ophthalmic migraine Depression Hyperlipidemia Hypertriglyceridemia Hypothyroidism TIA (transient ischemic attack) Home Medications ?Medication ?Instructions ?Recorded ?Last Taken ?Type pantoprazole 40 mg tablet,delayed 40 mg PO DAILY 01/30/18 01/16/25 History release fluoxetine 40 mg capsule 40 mg PO DAILY 01/18/22 01/16/25 History melatonin 10 mg capsule 10 mg PO QHS PRN insomnia 01/18/22 Unknown History levothyroxine 50 mcg capsule 75 mcg PO DAILY 05/22/23 01/16/25 History losartan 50 mg tablet 50 mg PO DAILY #90 tabs 09/18/24 01/16/25 Rx fluticasone fur. 100 mcg-umeclid 1 inh inhalation QDAY #3 ea 12/24/24 Unknown Rx 62.5 mcg-vilant 25 mcg inhalat.powder (Trelegy Ellipta) Allergy/AdvReac Type Severity Reaction Status Date / Time hydrochlorothiazide AdvReac Intermediate Makes hot Verified 12/13/24 09:15 flashes worse, also sulfa in it. latex AdvReac Rash Verified 12/13/24 09:15 Penicillins AdvReac Hives Verified 12/13/24 09:15 Sulfa (Sulfonamide AdvReac Hives Verified 12/13/24 09:15 Antibiotics) Family History Father Cancer Osteoarthritis Mother Skin cancer Osteoarthritis Grandmother Breast cancer Cervical cancer Surgical History FH: cholecystectomy History of cataract surgery History of colonoscopy History of endoscopy History of lumpectomy H/O total hysterectomy History of bladder surgery Social History Smoking Status: Former smoker alcohol intake: current alcohol intake frequency: a few times a month substance use type: does not use caffeine: Yes Type: coffee Number of servings: 2 ROS Constitutional Constitutional: Denies fever(s) or weight loss Eyes Eyes: Reports systems reviewed and no addt'l complaints, except as documented ENT HEENT: Reports systems reviewed and no addt'l complaints, except as documented Cardiovascular Cardiovascular: Reports dyspnea at rest and dyspnea on exertion; Denies chest pain at rest, chest pain with activity, edema, palpitations or paroxysmal nocturnal dyspnea Respiratory/Chest Respiratory/Chest: Reports shortness of breath at rest and shortness of breath with exertion; Denies dyspnea on exertion or productive cough Gastrointestinal Gastrointestinal: Denies change in bowel habits, nausea, vomiting or weight changes Genitourinary Genitourinary: Denies difficulty urinating Musculoskeletal Musculoskeletal: Denies joint stiffness or muscle weakness Integumentary Integumentary: Denies lesions Neurologic Neurologic: Denies dizziness or syncope Psychiatric Psychiatric: Denies anxiety Endocrine Endocrinology: Denies excessive sweating or fatigue Hematologic/Lymphatic Hematologic/Lymphatic: Denies anemia Allergic/Immunologic Allergic/Immunologic: Denies seasonal rhinorrhea Physical Exam Const alert, oriented x3 and no apparent distress General Appearance: cooperative HEENT hearing grossly normal bilaterally Head and Scalp: atraumatic Eyes EOMs intact bilaterally Neck General: normal visual inspection Chest inspection of chest normal and palpation of chest normal Resp normal respiratory effort Auscultation: clear to auscultation bilaterally Cardio regular rate, regular rhythm, S1 normal heart sound and S2 normal heart sound Jugular Venous Distention: JVD GI normal to inspection, nondistended, normoactive bowel sounds Extremity normal capillary refill and no pedal edema Peripheral Pulses: Yes pulses 2+ throughout and femoral pulses present Skin no rashes or lesions noted Neuro oriented x3 and CN's II-XII intact bilaterally Psych Appearance: grossly normal and appropriate Objective Data Vital Signs: Weight: 239 lb Body Mass Index (BMI) 37.4 Lab / Micro Data 12/31/24 08:45 12/31/24 08:45 Cardiology Labs/Tests Rhythm: EKG: ECHO: Stress Test: Cardiac Cath: PCI: CT Surgery: Holter monitor: EPS: PPM: CXR: Chest CT Scan: MADHU Risk Score for UA/STEMI Assesmment (YES = 1) Risk Stratification Applicable: No
[2025-01-16 08:05] LABS: Base Excess 3 mmol/L (-2 to +2); PO2 63 mmHG (75-100); SITE Not entered; SO2 93 % (95-99)
[2025-01-16 08:13] LABS: SITE Not entered; VBG BASE EXCESS 1 mmol/L (-1.0-3.5); VBG PO2 39 mmHg (25-40); VBG SO2 76 % (50-70); VBG TCO2 27 mmol/L (23-33)
[2025-01-16 08:13] LABS: SITE Not entered; VBG BASE EXCESS 4 mmol/L (-1.0-3.5); VBG PO2 36 mmHg (25-40); VBG SO2 73 % (50-70); VBG TCO2 29 mmol/L (23-33)
--- NOTE | 2025-01-16 08:38 | CL.D_ITS ---
Patient Name: SELVIN ROSAS Study Date: 01/16/2025 Performing: Eloy Villatoro MD Ht: 67 inches 170.18 cm : 1945 Wt: 239 lbs 108.41 kg Age: 79 Gender: female BSA: 2.18 PROCEDURE(S) PERFORMED [id number])RHC/LHC/COR CLINICAL PROFILE AND INDICATIONS Indications: Other Heart Failure: None Stress/Imaging Date: 10/13/24Stress Test with SPECT MPI: Negative CAD Presentations: Other: sob CONCLUSIONS Normal coronary arteries Normal LV size, wall motion,and systolic function Right heart pressures - moderately elevated RECOMMENDATIONS Obtain CTA of the chest to exclude any pulmonary pathology, aggressive BP control and weight loss measures. DESCRIPTION OF PROCEDURE The patient arrived to the procedure lab. The risks and benefits of the procedure as well as a full description of our services here and current unavailability of surgical backup were fully explained to the patient and/or their significant other prior to the catheterization. The Timeout was completed, verifying the correct patient and procedure. The patient's procedural site was prepped and draped in the usual fashion. Local anesthetic was given subcutaneously to right radial region with Lidocaine 2%. Using a modified Seldinger technique, arterial access was obtained via the right radial artery, a 6Fr sheath was inserted. Venous access was obtained via the right brachiocephalic vein, a 7Fr sheath was inserted. O2 saturations were then obtained. A 7Fr thermal dilution catheter was inserted and right heart pressures were recorded, it was then advanced to PA position for cardiac outputs. The Thermal dilution catheter was then removed. Right Coronary Artery selective angiography was then performed in multiple views using a 5 Fr. 4.0 Luning catheter. Left Coronary Artery selective angiography was performed in multiple views using a 5 Fr. 4.0 Luning catheter.The arterial sheath was pulled and a TR Band was applied for hemostasis w/ 14ml air. The venous sheath was then pulled and manual compression applied until hemostasis achieved CORONARY ANGIOGRAPHY DOMINANCE: Right Dominant LEFT HEART ASSESSMENT Left Ventricular Ejection Fraction: by Echo 65 % Normal LV wall motion Normal Left Ventricular systolic function RIGHT HEART ASSESSMENT Thermal CO: 8.93 Thermal CI: 4.09 Twyla CO: 10.91 Twyla CI: 5 PW: / 21 PA: 50/25 36 RV: 55/14 22 RA: 20/16 16 PVR: 134 SVR: 923 Right Heart pressures - elevated LEFT MAIN: Angiographically normal LEFT ANTERIOR DESCENDING ARTERY: Angiographically normal CIRCUMFLEX ARTERY: Angiographically normal RIGHT CORONARY ARTERY: Angiographically normal COMPLICATIONS No Complications PROCEDURE MEDICATIONS Versed 1 mg IV Fentanyl 50 mcg IV Versed 1 mg IV Oxygen: 2 L/min via nasal cannula Aspirin (325mg) 1 Tabs PO @ 01/16/2025 07:07:25 Heparin given IA 01/16/2025 07:56:57 Verapamil 2.5mg, Ntg 100mcgs, 3000 units of Heparin given IA 01/16/2025 07:56:57 SUMMARY OF HEMODYNAMIC DATA Time AIR REST ECG 07:10:44 RA 20/16 (16) SV 08:06:40 RV 55/14, 22 08:06:56 PA 50/25 (36) PA 08:07:12 PW 23/ (21) PV 08:07:24 RV 52/18, 23 08:10:32 RV 59/15, 22 08:11:04 RA / (20) 08:11:21 AO 188/91 (119) SA 08:12:44 08:37:32 Type SV CO (l/m) CI (l/m/ HR Time AIR REST Thermal 93.00 8.93 4.09 96 07:10:44 Twyla 113.60 10.91 5.00 96 07:10:44 Label % O2 Pres/Loc Time AIR REST AO 93 PV 08:17:05 RA 76 SV 08:17:31 PA 73 PA 08:17:36 Signed By Eloy Villatoro MD On 01/16/2025 08:37:50 Eloy Villatoro MD
--- NOTE | 2025-01-16 10:07 | CT_ITS ---
PROCEDURE: CTA CHEST W/WO CONTRAST 01/16/2025 REASON FOR EXAM: SÁNCHEZ TECHNIQUE: Procedure Code: [id number] Modality: CT Procedure: CTA CHEST W/WO CONTRAST Multiplanar Sagittal and Coronal images were obtained. 3D post processing was performed. CONTRAST: Isovue-300 VOLUME: 100 mL One or more dose reduction techniques were used (e.g., Automated exposure control, adjustment of the mA and/or kV according to patient size, use of iterative reconstruction technique). RADIATION DOSE SUMMARY: DLP: 429.18 mGycm COMPARISON: None. FINDINGS: PULMONARY VESSELS: No filling defects suspicious for pulmonary arterial emboli. Normal caliber of the main pulmonary trunk. No evidence of right heart strain. THORACIC AORTA: Mildly tortuous. No aneurysm or dissection. Mild atherosclerotic disease. HEART: Borderline enlarged. No pericardial effusion. Mild coronary artery calcifications. MEDIASTINUM: No mass or lymphadenopathy. Right perihilar granulomatous calcifications. LUNGS/PLEURA: Trace bibasilar pleural effusions. Very mild interstitial edema. No confluent airspace consolidation. No pneumothorax. Mild subpleural emphysema in the apices. The central airways are patent. No suspicious focal nodules. Multiple scattered small calcified granulomas. UPPER ABDOMEN: Unremarkable. BONES: Mild multilevel degenerative changes of the spine. CT/CTA Chest W/WO Contrast IMPRESSION: 1. No pulmonary arterial emboli. No thoracic aortic aneurysm or dissection. 2. Borderline cardiomegaly, with mild interstitial edema and trace bibasilar pl eural effusions. 3. Mild biapical subpleural pulmonary emphysema. Reading Location: [facility]
== END 2025-01-16 10:35 | disposition home or self-care (01) ==
PROVIDERS: PCP Family Medicine; Referring Provider Internal Medicine Cardiovascular Disease; Visit Provider Internal Medicine Cardiovascular Disease
DX: R06.02 Shortness of breath (principal); I10 Essential (primary) hypertension; E78.5 Hyperlipidemia, unspecified; Z87.891 Personal history of nicotine dependence; I49.8 Other specified cardiac arrhythmias; E03.9 Hypothyroidism, unspecified; Z79.899 Other long term (current) drug therapy; R07.89 Other chest pain
CPT/HCPCS: 36415; 71046; 71275; 80048; 82803; 85025; 93456; 99152; 99153; C1894; Q9967; A4216; C1751; C1769